=== PATIENT | male | born 1970 | race Native Hawaiian/Other Pacific Islander ===

== ENCOUNTER 2016-08-16 15:57 | Emergency (ER) | payer SELFPAY ==
--- NOTE | 2016-08-16 16:40 | ER Document Report ---
ED Medical Screen (RME) - General Stated Complaint: RIGHT LEG NUMBNESS Notes: 46 yo male c/o right leg numbness x 1 day. started while walking to work. hx/ o DM, seizure disorder, HTN. denies chest pain and shortness. reports dizziness earlier today. no meds x 3 months. no recent trauma. pt does have hx/o gout. last attack 1 yr ago TRAVEL OUTSIDE OF THE [place] IN LAST 30 DAYS: No - Related Data Allergies/Adverse Reactions: phenytoin [From Dilantin] Allergy (Verified 03/20/16 16:09) tramadol Allergy (Verified 03/20/16 16:08) Past Medical History - Past Medical History Cardiac Medical History: Reports: Hx Congestive Heart Failure, Hx Hypertension Endocrine Medical History: Reports: Hx Diabetes Mellitus Type 2 Musculoskeltal Medical History: Reports Hx Arthritis, Reports Hx Gout Physical Exam - Vital signs Vitals: Temp Pulse Resp BP Pulse Ox 98.0 F 101 H 16 144/107 H 96 08/16/16 16:24 08/16/16 16:24 08/16/16 16:24 08/16/16 16:24 08/16/16 16:24 Course - Vital Signs Vital signs: Temp Pulse Resp BP Pulse Ox 98.0 F 101 H 16 144/107 H 96 08/16/16 16:24 08/16/16 16:24 08/16/16 16:24 08/16/16 16:24 08/16/16 16:24
[2016-08-16 17:23] LABS: ABSOLUTE EOSINOPHILS # (AUTO) 0.1 10^3/uL (0.0-0.6); ABSOLUTE LYMPHOCYTES (AUTO) 2.5 10^3/uL (0.5-4.7); ABSOLUTE MONOCYTES (AUTO) 0.4 10^3/uL (0.1-1.4); ABSOLUTE NEUT (AUTO) 5.9 10^3/uL (1.7-8.2); BASOPHILS % (AUTO) 0.3 % (0-2); EOSINOPHILS % (AUTO) 1.5 % (0-6); HEMATOCRIT 46.2 % (37.9-51.0); HEMOGLOBIN 16.1 g/dL (13.5-17.0); HGB HCT DIFFERENCE 2.1; LYMPHOCYTES % (AUTO) 27.9 % (13-45); MEAN CORPUSCULAR HEMOGLOBIN 27.9 pg (27.0-33.4); MEAN CORPUSCULAR HGB CONC 34.9 g/dL (32.0-36.0); MEAN CORPUSCULAR VOLUME 80 fl (80-97); MONOCYTES % (AUTO) 4.9 % (3-13); RED BLOOD COUNT 5.78 10^6/uL (4.35-5.55); RED CELL DISTRIBUTION WIDTH 13.4 % (11.5-14.0); SEGMENTED NEUTROPHILS % (AUTO) 65.4 % (42-78); WHITE BLOOD COUNT 9.1 10^3/uL (4.0-10.5)
[2016-08-16 17:39] LABS: ALANINE AMINOTRANSFERASE 26 U/L (21-72); ALBUMIN 4.2 g/dL (3.5-5.0); ALKALINE PHOSPHATASE 122 U/L (38-126); ANION GAP 15 (5-19); ASPARTATE AMINO TRANSFERASE 20 U/L (17-59); BLOOD UREA NITROGEN 17 mg/dL (7-20); CALCIUM 9.6 mg/dL (8.4-10.2); CARBON DIOXIDE 22 mmol/L (22-30); CHLORIDE 108 mmol/L (98-107); CREATININE RESULT 0.82 mg/dL (0.52-1.25); GLUCOSE 185 mg/dL (75-110); POTASSIUM 3.8 mmol/L (3.6-5.0); SODIUM 144.9 mmol/L (137-145); TOTAL PROTEIN 7.9 g/dL (6.3-8.2); URIC ACID 7.2 mg/dL (3.5-8.5)
--- NOTE | 2016-08-16 18:48 | ER Document Report ---
ED General - General Chief Complaint: Leg Pain Stated Complaint: RIGHT LEG NUMBNESS Mode of Arrival: Wheelchair Information source: Patient Notes: Patient is a 46 yo male who presents with right leg pain, described as "soreness " that started yesterday. He states it worsened today whlie walking to work and reports feeling his right foot go numb and then his ankle went numb. He had to limp and drag his right leg while trying to get to a store so he could call EMS. He states now his right leg just feels "heavy." He did take advil yesterday for the pain but that did not provide relief. He has never felt this pain before, PMHx significant for DM, seizure d/o, CHF, HTN and gout but he has been out of his medication for the past 3 months. Denies any chest pain, SOB, headache, changes in vision. TRAVEL OUTSIDE OF THE [place] IN LAST 30 DAYS: No - Related Data Allergies/Adverse Reactions: lamotrigine [From Lamictal] Allergy (Verified 08/16/16 16:40) levetiracetam [From Keppra] Allergy (Verified 08/16/16 16:40) phenytoin [From Dilantin] Allergy (Verified 08/16/16 16:39) tramadol Allergy (Verified 08/16/16 16:39) Past Medical History - Social History Smoking Status: Current Every Day Smoker Chew tobacco use (# tins/day): No Frequency of alcohol use: None Drug Abuse: None Family History: Reviewed & Not Pertinent Patient has suicidal ideation: No Patient has homicidal ideation: No - Past Medical History Cardiac Medical History: Reports: Hx Congestive Heart Failure, Hx Hypertension Neurological Medical History: Reports: Hx Seizures Endocrine Medical History: Reports: Hx Diabetes Mellitus Type 2 Renal/ Medical History: Denies: Hx Peritoneal Dialysis Musculoskeltal Medical History: Reports Hx Arthritis, Reports Hx Gout Surgical Hx: Negative Review of Systems - Review of Systems Constitutional: No symptoms reported EENT: No symptoms reported Cardiovascular: No symptoms reported Respiratory: No symptoms reported Gastrointestinal: No symptoms reported Genitourinary: No symptoms reported Male Genitourinary: No symptoms reported Musculoskeletal: See HPI Skin: No symptoms reported Hematologic/Lymphatic: No symptoms reported Neurological/Psychological: See HPI Physical Exam - Vital signs Vitals: Temp Pulse Resp BP Pulse Ox 98.0 F 101 H 16 144/107 H 96 02/01/17 16:24 08/16/16 16:24 08/16/16 16:24 08/16/16 16:24 08/16/16 16:24 Interpretation: Hypertensive, Tachycardic - Notes Notes: PHYSICAL EXAM: CONSTITUTIONAL: Alert and oriented, well-appearing and in no acute distress. HENT: Normocephalic, atraumatic. Moist mucous membranes. EYES: Pupils equal round and reactive to light, EOM intact. Sclera anicteric, conjunctiva are normal. No entrapment. NECK: supple without lymphadenopathy. No midline tenderness or paraspinous muscle spasms. No step-offs or deformities. ROM intact. HEART: Regular rate and rhythm without murmurs. LUNGS: CTAB and equal. No wheezes, rales or rhonchi. GI: Normactive bowel sounds. Nontender, non-distended. No organomegaly. no CVAT. BACK: tender to palpation over bilateral lower lumbar musculature with mild paraspinous spasm, 4+/5 strengths, DTRs 2+, SLR + on Right side. EXTREMITIES: TTP along upper and lower extremity without deformity, erythema, ecchymosis or edema. ROM of R leg limited secondary to pain. no pitting edema. No cyanosis. Cap Refill <3 seconds. NEURO: Cranial nerves grossly intact. Normal sensory/motor exams. Sensation intact to light touch on b/l lower extremities. PSYCH: Normal mood, normal affect. SKIN: Warm and dry. Normal turgor. No rashes or lesions noted. Course - Re-evaluation Re-evalutation: 08/16/16 19:04 I have consulted with the supervisory physician [facility] guidelines. 08/16/16 21:19 Patient seen and examined. No neuro deficits, +SLR on R side. Sensation to light touch intact and strength 4/5 bilaterally. No evidence of cauda equine sydrome. Given IM toradol for pain. Reviewed imaging - mild DDD at L4-L5 with no other abnormalities. Discussed results with patient. Discharged home in stable condition, scripts given for steroids/pain medication. Follow-up with primary care doctor. - Vital Signs Vital signs: Temp Pulse Resp BP Pulse Ox 98.0 F 101 H 18 144/107 H 96 08/16/16 16:24 08/16/16 16:24 08/16/16 18:06 08/16/16 16:24 08/16/16 16:24 - Laboratory Result Diagrams: 08/16/16 17:01 08/16/16 17:01 Laboratory results interpreted by me: 08/16/16 08/16/16 17:01 17:01 RBC 5.78 H Chloride 108 H Glucose 185 H 08/16/16 18:48 - Diagnostic Test Radiology reviewed: Image reviewed, Reports reviewed Radiology results interpreted by me: 08/16/16 21:24 Lumbar spine plain films - mild degenerative disc disease in L4-L5 without additional abnormalities. Discharge - Discharge Clinical Impression: Right leg pain Sciatica Qualifiers: Laterality: right Qualified Code(s): M54.31 - Sciatica, right side Condition: Stable Disposition: HOME, SELF-CARE Additional Instructions: Return immediately for any new or worsening symptoms. Follow-up with primary care provider, call tomorrow to make followup appointment. Sciatica Your symptoms suggest "sciatica." The pain of sciatica typically radiates down the leg. Numbness in the foot or calf may also occur. Sciatica is caused by irritation of the sciatic nerve or its branches. The irritation can be due to a herniated disk in the spine, swelling and inflammation in the muscles surrounding the sciatic nerve, or direct injury of the nerve itself. Most cases of sciatica will resolve with medical treatment. Bed rest is usually recommended initially. Surgery is only necessary when the condition will not improve with rest and antiinflammatory medication. Muscle relaxers are often given if muscle soreness is present. A CAT scan of the back may be performed if a herniated disk is suspected. Re-examination is necessary if you develop increasing numbness, localized weakness in the foot or ankle, or if the pain does not respond to rest. Muscle Relaxers Muscle relaxing medications are usually prescribed for acute muscle spasm or injury to the neck and back. They are often combined with antiinflammatory pain medication for increased relief. You may stop the muscle relaxer when the pain and stiffness have improved. Start the medication again if spasms recur. Muscle relaxers may cause drowsiness, especially with the first dose. Do not operate machinery or drive while under the effects of the medication. Most muscle relaxers last up to 24 hours. Do not combine the medication with alcohol. STEROID MEDICATION: You have been given a medicine of the cortisone/steroid class. This medication is used to control inflammation or allergy. It is usually only given for a short period of time, until the acute process subsides. There are usually no side effects from short-term use of cortisone-like medications. Some persons feel an increased sense of well-being and are not sleepy at bedtime. Long-term use of cortisone medications is best avoided, unless required for a severe condition. If your condition does not remit, or relapses after the course of corticosteroid medication, you should consult your physician. Follow-Up Care Although no definite follow-up visit has been scheduled for you, you should return if there is unexpected worsening or a significant change in your symptoms. Prescriptions: Metformin HCl 500 mg PO Q12 #10 tablet Methylprednisolone [Medrol Dosepack (4 mg/Tab) 21 Tab/Dosepak] 4 mg PO ASDIR PRN #21 tab.ds.pk PRN Reason: Naproxen [Naprosyn 250 mg Tablet] 250 mg PO DAILY PRN #14 tablet PRN Reason: Forms: Elevated Blood Pressure, Return to Work Referrals: LOCALMD,NO [Primary Care Provider] - Follow up in 3-5 days
[2016-08-16] MEDS ORDERED: KETOROLAC TROMETHAMINE 60 MG/2 ML SDV IM ONE (19:03)
[2016-08-16 22:59] VITALS: BP 159/102
== END 2016-08-16 22:51 | disposition home or self-care (01) ==
LOC: ER 15:57
DX: M79.604 Pain in right leg (principal); M54.31 Sciatica, right side; F17.210 Nicotine dependence, cigarettes, uncomplicated
CPT/HCPCS: 99284; 96372; 36415; 84550; 85025; 80053; 72110; J1885

== ENCOUNTER 2016-09-16 21:00 | Observation (INO) | payer SELFPAY ==
--- NOTE | 2016-09-16 21:03 | ER Document Report ---
ED Neuro Symptoms/Deficit - General Stated Complaint: STROKE LIKE SYMPTOMS Time seen by provider: 21:03 Mode of Arrival: Stretcher TRAVEL OUTSIDE OF THE [place] IN LAST 30 DAYS: No - HPI Patient complains to provider of: Facial Droop, Speech Impairment, Weakness - right side Onset: Just prior to arrival Awoke with symptoms: No Symptoms are: Intermittent episodes Duration: Better Severity: Moderate Baseline Cognitive: Alert, oriented X 3 Baseline Gait: Walks w/o assistance New weakness: RUE, RLE, R facial Impaired speech/swallowing: Difficult Similar symptoms previously: Yes Recently seen / treated by doctor: No Notes: Patient is a 46-year-old male with a history of hypertension, states he has not seen a doctor or taken his hypertensive medication in at least 6 months, who presents to the emergency room via EMS for complaints of right-sided weakness, right facial droop, speech impairment, symptoms started approximately 20 minutes prior to calling EMS, although patient reports she's had 3-4 episodes similar to this in past weeks, his systolic blood pressure is greater than 180 via EMS, upon arrival he does have slight aphasia, slight right-sided facial droop and slight right upper and lower extremity weakness, he was taken immediately to the CT scanner - Related Data Allergies/Adverse Reactions: lamotrigine [From Lamictal] Allergy (Verified 08/16/16 16:40) levetiracetam [From Keppra] Allergy (Verified 08/16/16 16:40) phenytoin [From Dilantin] Allergy (Verified 08/16/16 16:39) tramadol Allergy (Verified 08/16/16 16:39) Past Medical History - General Information source: Patient - Social History Smoking Status: Current Every Day Smoker Family History: Reviewed & Not Pertinent - Past Medical History Cardiac Medical History: Reports: Hx Congestive Heart Failure, Hx Hypertension Neurological Medical History: Reports: Hx Seizures Endocrine Medical History: Reports: Hx Diabetes Mellitus Type 2 Renal/ Medical History: Denies: Hx Peritoneal Dialysis Musculoskeltal Medical History: Reports Hx Arthritis, Reports Hx Gout Review of Systems - Review of Systems Constitutional: No symptoms reported EENT: No symptoms reported Cardiovascular: No symptoms reported Respiratory: No symptoms reported Gastrointestinal: No symptoms reported Genitourinary: No symptoms reported Male Genitourinary: No symptoms reported Musculoskeletal: No symptoms reported Skin: No symptoms reported Hematologic/Lymphatic: No symptoms reported Neurological/Psychological: See HPI -: Yes All other systems reviewed and negative Physical Exam - Vital signs Vitals: Resp Pulse Ox 18 99 09/16/16 21:19 09/16/16 21:19 Interpretation: Normal - General General appearance: Appears well, Alert - HEENT Head: Normocephalic, Atraumatic Eyes: Normal Pupils: PERRL - Respiratory Respiratory status: No respiratory distress Chest status: Nontender Breath sounds: Normal Chest palpation: Normal - Cardiovascular Rhythm: Regular Heart sounds: Normal auscultation Murmur: No - Abdominal Inspection: Normal Distension: No distension Bowel sounds: Normal Tenderness: Nontender Organomegaly: No organomegaly - Back Back: Normal, Nontender - Extremities General upper extremity: Normal inspection, Nontender, Normal color, Normal ROM , Normal temperature General lower extremity: Normal inspection, Nontender, Normal color, Normal ROM , Normal temperature, Normal weight bearing. No: Mau's sign - Neurological Cognition: Normal Orientation: AAOx4 Jan Coma Scale Eye Opening: Spontaneous Jan Coma Scale Verbal: Oriented Jan Coma Scale Motor: Obeys Commands Jan Coma Scale Total: 15 Speech: Expressive aphasia Cranial nerves: Other - right facial droop Motor strength normal: LUE, LLE Additional motor exam normals: Other - right sided weakness Sensory: Normal - Psychological Associated symptoms: Normal affect, Normal mood - Skin Skin Temperature: Warm Skin Moisture: Dry Skin Color: Normal Course - Re-evaluation Re-evalutation: 09/17/16 02:09 Patient with slight right-sided weakness and facial droop with mild expressive aphasia on arrival, which improved significantly during his course of stay, patient was discussed with the hospitalist, initially patient was reluctant to stay, however I had another discussion with him and it seemed as though his symptoms were starting to occur once again, therefore he was willing to stay for further evaluation and treatment - Vital Signs Vital signs: Temp Pulse Resp BP Pulse Ox 98.2 F 84 22 H 155/98 H 98 09/17/16 00:31 09/17/16 00:37 09/17/16 01:01 09/17/16 01:01 09/17/16 01:01 - Laboratory Result Diagrams: 09/16/16 21:35 09/16/16 21:35 Laboratory results interpreted by me: 03/04/17 03/04/17 03/04/17 21:35 21:35 21:35 RBC 5.71 H MCH 26.9 L BUN 21 H Glucose 149 H Hemoglobin A1c % 8.8 H Creatine Kinase 183 H Urine Protein Urine Glucose (UA) 09/16/16 21:42 RBC MCH BUN Glucose Hemoglobin A1c % Creatine Kinase Urine Protein 30 H Urine Glucose (UA) >=500 H - Diagnostic Test Radiology reviewed: Image reviewed, Reports reviewed - EKG Interpretation by Me EKG shows normal: Sinus rhythm Rate: Normal Rhythm: NSR - Transfer of Care Care transferred to following provider: Dr. Odom Critical Care Note - Critical Care Note Total time excluding time spent on procedures (mins): 30 Comments: Patient hypertensive on arrival with signs and symptoms consistent with CVA/TIA , requiring admission for further evaluation and treatment Discharge - Discharge Clinical Impression: Transient ischemic attack (TIA) Qualifiers: Transient cerebral ischemia type: unspecified Qualified Code(s): G45.9 - Transient cerebral ischemic attack, unspecified Hypertension Qualifiers: Hypertension type: essential hypertension Qualified Code(s): I10 - Essential ( primary) hypertension Condition: Stable Disposition: ADMITTED OBSERVATION Admitting Provider: Hospitalist Unit Admitted: Telemetry ED [employer]/Exc Criteria - Date/Time patient last known well: Date/Time: 09/16/20162029 - Date/Time patient arrived in ED: _: 09/16/20162099 - Inclusion Criteria: 1: Patient presented to ED within 3 hours of acute ischemic stroke symptom onset ? -: Yes 2: Did baseline CT exclude intracranial hemorrhage and/or other risk factors? -: Yes 3: Is the age of the patient 18 years of age or greater? -: Yes : If any of the above questions are answered "NO" then stop, patient is not a candidate for Alteplase, : If all of the above questions are answered "YES" then continue with Exclusion Criteria. - Exclusion Criteria: 1: Is there evidence of intracranial hemorrhage on baseline CT? -: No 2: Is there suspicion of subarachnoid hemorrhage (even if CT negative)? -: No 3: Is there a history of serious head trauma, recent previous stroke or RI within 3 months? -: No 4: Does the patient have a clinical presentation consistent with RI or post-RI pericarditis? -: No 5: Is there history of intracranial hemorrhage? -: No 6: On repeated measurement is Systolic BP greater than 185mmHg or Diastolic BP greater that 110 mmHg and is aggressive treatment needed to reduce blood pressure to these limits (e.g. constant infusion of an anti-hypertensive)? -: No 7: Did the patient awake with stroke symptoms? -: No 8: Has the patient had a lumbar puncture or an arterial puncture at a non- compressile site within 7 days? -: No 9: With in the last 14 days did the patient have surgery or major trauma? -: No 10: Is the patient or less than 2 weeks? -: No 11: Was there any active bleeding or acute trauma? -: No 12: Does the patient have intracranial neoplasm, arteriovenous malformation or aneurysm? -: No 13: Does the patient have abnormal glucose (less than 50 or greater than 400mg/ dl)? Record glucose in Comment. -: No 14: Patient has rapidly improving symptoms at the time Alteplase is to be Administered. -: Yes 15: Does the patient have any risks for bleeding, including but not limited to: a.: Current use of Coumadin with PT greater than 15 seconds or INR greater than 1.7. b.: Current use of Pradaxa (Dabigatran). c.: Heparin administereed within the past 48 hours and PTT elevated. d.: Platelet count less than 100,000/mm. e.: Major surgery or serious trauma within 14 days. f.: Gastrointestinal or gynecological urinary bleeding within 14 days. g.: Myocardial Infarction (RI) within 3 months. -: No : If the answer to any of the above questions is "YES" then stop, the patient is not a candidate for Alteplase. : If the answer to all of the above questions is "NO" then the patient may be eligible for the Administration of Alteplase. : If the patient is noted to have seizure activity at onset of Stroke symptoms; Consult Neurologist for further evaluation. - The patient is: -: Included and is eligible to receive Alteplase. *Initiate bed placement at higher level of care* --: No Reviewd risks & benefits of thrombolytic therapy: I have reviewed the risks and benefits of thrombolytic therapy with the patient and/or his/her family. -: Excluded and not eligible to receive Alteplase for the above exclusions. -: Excluded and not eligible to receive Alteplase for other reasons (specify in comments): --: Yes - Diagnosis of TIA: -: Patient presented with transient symptoms that are now resolved and no other neurologic findings are currently present. List symptoms in comments. -: Yes -: Patient is NOT a candidate for tPA. -: Yes -: ____(put name in comment) has been consulted for admission and continued evaluation of risk factor assessment.
[2016-09-16 21:51] LABS: ABSOLUTE EOSINOPHILS # (AUTO) 0.2 10^3/uL (0.0-0.6); ABSOLUTE LYMPHOCYTES (AUTO) 3.4 10^3/uL (0.5-4.7); ABSOLUTE MONOCYTES (AUTO) 0.7 10^3/uL (0.1-1.4); BASOPHILS % (AUTO) 0.4 % (0-2); HEMATOCRIT 45.5 % (37.9-51.0); HEMOGLOBIN 15.4 g/dL (13.5-17.0); HGB HCT DIFFERENCE 0.7; MEAN CORPUSCULAR HEMOGLOBIN 26.9 pg (27.0-33.4); MEAN CORPUSCULAR HGB CONC 33.8 g/dL (32.0-36.0); MEAN CORPUSCULAR VOLUME 80 fl (80-97); MONOCYTES % (AUTO) 6.3 % (3-13); PARTIAL THROMBOPLASTIN TIME 27.5 SEC (23.5-35.8); RED BLOOD COUNT 5.71 10^6/uL (4.35-5.55); RED CELL DISTRIBUTION WIDTH 13.6 % (11.5-14.0); SEGMENTED NEUTROPHILS % (AUTO) 58.3 % (42-78); WHITE BLOOD COUNT 10.3 10^3/uL (4.0-10.5)
[2016-09-16 21:53] LABS: PROTHROMBIN TIME 12.4 SEC (11.4-15.4)
[2016-09-16] MEDS ORDERED: CLONIDINE HCL 0.2 MG TABLET PO ONE (22:06)
[2016-09-16 22:12] LABS: ALANINE AMINOTRANSFERASE 38 U/L (21-72); ALBUMIN 4.5 g/dL (3.5-5.0); ALKALINE PHOSPHATASE 121 U/L (38-126); ANION GAP 13 (5-19); ASPARTATE AMINO TRANSFERASE 28 U/L (17-59); BILIRUBIN,TOTAL 0.9 mg/dL (0.2-1.3); BLOOD UREA NITROGEN 21 mg/dL (7-20); CALCIUM 9.5 mg/dL (8.4-10.2); CARBON DIOXIDE 25 mmol/L (22-30); CHLORIDE 106 mmol/L (98-107); CREATINE KINASE 183 U/L (55-170); CREATININE RESULT 0.81 mg/dL (0.52-1.25); GLUCOSE 149 mg/dL (75-110); POTASSIUM 3.6 mmol/L (3.6-5.0); SODIUM 144.3 mmol/L (137-145); TOTAL PROTEIN 7.7 g/dL (6.3-8.2)
[2016-09-16 22:23] LABS: CREATINE KINASE MB 2.38 ng/mL (<4.55)
[2016-09-16 22:25] LABS: TROPONIN I 0.037 ng/mL
[2016-09-16] MEDS ORDERED: ATORVASTATIN CALCIUM 80 MG TABLET PO SCH (23:30)
[2016-09-16 23:38] LABS: APPEARANCE,URINE CLEAR; BILIRUBIN,URINE NEGATIVE (NEGATIVE); GLUCOSE, URINE >=500 mg/dL (NEGATIVE); KETONES,URINE NEGATIVE (NEGATIVE); LEUKOCYTE ESTERASE,URINE NEGATIVE (NEGATIVE); NITRITE,URINE NEGATIVE (NEGATIVE); PROTEIN,URINE 30 mg/dL (NEGATIVE); URINE SPECIFIC GRAVITY 1.025; UROBILINOGEN,URINE NEGATIVE mg/dL (<2.0)
[2016-09-16 23:52] LABS: URINE BARBITURATES SCREEN NEGATIVE; URINE METHADONE SCREEN NEGATIVE; URINE OPIATES LOW NEGATIVE; URINE PHENCYCLIDINE SCREEN NEGATIVE
[2016-09-17] MEDS ORDERED: GLUCAGON,HUMAN RECOMB 1 MG INJ IM PRN (00:54)
[2016-09-17] MEDS ORDERED: DEXTROSE 50%-WATER 25 GM/50 ML DISP.SYRIN IV PRN ×2 (00:54)
[2016-09-17] MEDS ORDERED: DEXTROSE 40% GEL 15 GM TUBE PO PRN ×2 (00:54)
[2016-09-17] MEDS ORDERED: INFLUENZA ADLT QUAD (36MOS+) 2016-17 VAC 0.5 ML SYR IM PRN (03:19)
--- NOTE | 2016-09-17 04:45 | PDOC H&P ---
History of Present Illness Admission Date/PCP: 09/16/16 23:18 Patient complains of: Word finding difficulties and right facial droop History of Present Illness: WHITNEY HENRY is a 46 year old male with a past medical history of substance abuse, Tobacco Dependence, seizure, hypertension and diabetes off medications for several months who had been in his usual state of health until approximately a month ago. Noting a short-lived episode of word finding difficulty and slurred speech and right facial droop which has recurred approximately 3 times and lasted approximately an hour prior to returning to baseline. He denies chest pain palpitations nausea vomiting, blurred vision, dizziness, ringing in the ears or focal weakness. In the emergency room he has a workup notable for uncontrolled hypertension systolic blood pressure in the 170s and hyperglycemia. He started on aspirin and referred to the hospitalist for admission. He denies any new medications his last seizure was greater than a year ago. Past Medical History Cardiac Medical History: Reports: Congestive Heart Failure, Hypertension Neurological Medical History: Reports: Seizures Endocrine Medical History: Reports: Diabetes Mellitus Type 2 Musculoskeltal Medical History: Reports: Arthritis, Gout Psychiatric Medical History: Reports: Depression, Substance Abuse, Tobacco Dependency Social History Smoking Status: Current Every Day Smoker Cigarettes Packs Per Day: 0.5 Number of Years Smokin Last Time Smoked: T-1 Frequency of Alcohol Use: Rare Hx Recreational Drug Use: Yes Drugs: Other Family History Family History: CAD, CVA, DM Parental Family History Reviewed: Yes Children Family History Reviewed: Yes Sibling(s) Family History Reviewed.: Yes Medication/Allergy Home Medications: Carvedilol [Coreg 25 mg Tablet] 1 tab PO Q12 #60 tab 09/19/15 Lisinopril 20 mg PO BID #60 tablet 09/19/15 Metformin HCl 500 mg PO BID #60 tablet 09/19/15 Allopurinol [Zyloprim 100 mg Tablet] 500 mg PO DAILY 09/17/16 Diazepam [Valium] 10 mg PO QHS PRN 09/17/16 Ibuprofen [Motrin 800 mg Tablet] 1 tab PO PRN PRN 09/17/16 Methocarbamol [Robaxin 500 mg Tablet] 500 mg PO QHS 09/17/16 Nitroglycerin 0.4 mg SL PRN PRN 09/17/16 Allergies/Adverse Reactions: lamotrigine [From Lamictal] Allergy (Verified 08/16/16 16:40) levetiracetam [From Keppra] Allergy (Verified 08/16/16 16:40) phenytoin [From Dilantin] Allergy (Verified 08/16/16 16:39) tramadol Allergy (Verified 08/16/16 16:39) Review of Systems Constitutional: ABSENT: chills, fever(s), headache(s), weight gain, weight loss Eyes: ABSENT: visual disturbances Ears: ABSENT: hearing changes Cardiovascular: ABSENT: chest pain, dyspnea on exertion, edema, orthropnea, palpitations Respiratory: ABSENT: cough, hemoptysis Gastrointestinal: ABSENT: abdominal pain, constipation, diarrhea, hematemesis, hematochezia, nausea, vomiting Genitourinary: ABSENT: dysuria, hematuria Musculoskeletal: ABSENT: joint swelling Integumentary: ABSENT: rash, wounds Neurological: PRESENT: abnormal speech, tingling. ABSENT: abnormal gait, confusion, dizziness, focal weakness, frequent falls, memory loss, numbness, syncope, vertigo, weakness Psychiatric: PRESENT: anxiety. ABSENT: depression, homidical ideation, suicidal ideation Endocrine: PRESENT: polydipsia, polyuria. ABSENT: cold intolerance, heat intolerance Hematologic/Lymphatic: ABSENT: easy bleeding, easy bruising Physical Exam Vital Signs: Temp Pulse Resp BP Pulse Ox 98.0 F 65 18 150/91 H 98 09/17/16 01:57 09/17/16 01:57 09/17/16 01:57 09/17/16 01:57 09/17/16 01:57 Intake & Output 09/15/16 09/16/16 09/17/16 11:59 11:59 11:59 Weight 93 kg General appearance: PRESENT: no acute distress, cooperative Head exam: PRESENT: atraumatic, normocephalic Eye exam: PRESENT: conjunctiva pink, EOMI, PERRLA. ABSENT: scleral icterus Ear exam: PRESENT: normal external ear exam Mouth exam: PRESENT: moist, tongue midline Neck exam: ABSENT: carotid bruit, JVD, lymphadenopathy, thyromegaly Respiratory exam: PRESENT: clear to auscultation peewee. ABSENT: rales, rhonchi, wheezes Cardiovascular exam: PRESENT: RRR. ABSENT: diastolic murmur, rubs, systolic murmur Pulses: PRESENT: normal dorsalis pedis pul GI/Abdominal exam: PRESENT: normal bowel sounds, soft. ABSENT: distended, guarding, mass, organolmegaly, rebound, tenderness Rectal exam: PRESENT: deferred Extremities exam: PRESENT: full ROM. ABSENT: calf tenderness, clubbing, pedal edema Neurological exam: PRESENT: alert, awake, oriented to person, oriented to place , oriented to time, oriented to situation, CN II-XII grossly intact. ABSENT: motor sensory deficit, aphasic Psychiatric exam: PRESENT: anxious Skin exam: PRESENT: dry, intact, warm. ABSENT: cyanosis, rash Results Impressions: Head CT 09/16/16 21:02 IMPRESSION: No acute findings Chest X-Ray 09/16/16 21:05 IMPRESSION: NO ACUTE RADIOGRAPHIC FINDING IN THE CHEST. Assessment & Plan - Diagnosis (1) Transient ischemic attack (TIA) Qualifiers: Transient cerebral ischemia type: unspecified Qualified Code(s): G45.9 - Transient cerebral ischemic attack, unspecified Is this a current diagnosis for this admission?: YesPlan: Vague neurologic complaint complicated by history of substance abuse, Depression and noncompliance. That said he has strong family history uncontrolled hypertension and diabetes I'll observe him on a monitored bed with a CVA care set initiate full dose aspirin, statin permissive hypertension and obtaining MRI, carotid Doppler, lipid profile and TSH (2) Diabetes 1.5, managed as type 2 Is this a current diagnosis for this admission?: YesPlan: Metformin, insulin sliding scale and education (3) Hypertension Qualifiers: Hypertension type: essential hypertension Qualified Code(s): I10 - Essential (primary) hypertension Is this a current diagnosis for this admission?: YesPlan: Permissive hypertension initially for possibility of TIA otherwise resume MARGARITO inhibitor - Time Time Spent: 30 to 50 Minutes - Inpatient Certification Medical Necessity: Need Close Monitoring Due to Risk of Patient Decompensation
[2016-09-17] MEDS: HEPARIN SOD (PORCINE) 5,000 UNIT/ML 1 ML SYRINGE SUBCUT SCH ×2 (05:40→14:04)
[2016-09-17 06:36] LABS: CHOLESTEROL 159.67 mg/dL (0-200); Direct HDL 30 mg/dL (>40); TRIGLYCERIDES 186 mg/dL (<150)
[2016-09-17 06:47] LABS: DIRECT LDL 107 mg/dL (<100)
[2016-09-17 06:51] LABS: VLDL CHOLESTEROL 37.2 mg/dL (10-31)
[2016-09-17] MEDS: INSULIN LISPRO 100 UNIT/ML 3 ML VIAL SUBCUT PRN ×2 (07:46→16:13)
--- NOTE | 2016-09-17 09:45 | EKG REPORT ---
SEVERITY:- BORDERLINE ECG - SINUS RHYTHM PROBABLE LEFT ATRIAL ABNORMALITY : Confirmed by: Felipe Weir MD 17-Sep-2016 09:44:28
[2016-09-17] MEDS ORDERED: ASPIRIN 325 MG TABLET PO SCH (10:00)
[2016-09-17] MEDS ORDERED: CARVEDILOL 12.5 MG TABLET PO SCH ×2 (10:00→22:00)
[2016-09-17] MEDS: DOCUSATE SODIUM 100 MG CAPSULE PO SCH ×2 (10:31→17:33)
[2016-09-17] MEDS: METFORMIN HCL 500 MG TABLET PO SCH ×2 (10:31→17:38)
[2016-09-17 16:18] VITALS: BP 150/91
--- NOTE | 2016-09-17 16:21 | PDOC DISCHARGE SUMMARY ---
General - Admit/Disc Date/PCP Admission Date/Primary Care Provider: 09/16/16 23:18 Discharge Date: 09/17/16 - Discharge Diagnosis (1) Transient ischemic attack (TIA) Is this a current diagnosis for this admission?: YesSummary: Negative MRI. It's not clear whether this was truly a TIA or related to his uncontrolled hypertension. All of his symptoms have resolved. (2) Diabetes 1.5, managed as type 2 Is this a current diagnosis for this admission?: Yes (3) Hypertension Is this a current diagnosis for this admission?: YesSummary: He has not taken medications for the last 6 months. He is given a prescription for 30 days for all of his medications. (4) Anxiety Is this a current diagnosis for this admission?: YesSummary: Patient is given a prescription for diazepam to use as needed - Additional Information Discharge Diet: Diabetic Discharge Activity: Activity As Tolerated Home Medications: Allopurinol [Zyloprim 100 mg Tablet] 300 mg PO DAILY #30 tablet 09/17/16 Aspirin [Aspirin 325 mg Tablet] 325 mg PO DAILY tablet 09/17/16 Atorvastatin Calcium [Lipitor 80 mg Tablet] 80 mg PO QHS #30 tablet 09/17/16 Carvedilol [Coreg 25 mg Tablet] 1 tab PO Q12 #60 tablet 09/17/16 Diazepam [Valium] 10 mg PO HSP PRN #20 tablet 09/17/16 Ibuprofen [Motrin 800 mg Tablet] 800 mg PO HSP PRN #60 tablet 09/17/16 Lisinopril [Prinivil] 20 mg PO BID #60 tablet 09/17/16 Metformin HCl [Glucophage] 500 mg PO BID #60 tablet 09/17/16 Methocarbamol [Robaxin 500 mg Tablet] 500 mg PO HSP PRN #30 tablet 09/17/16 Nitroglycerin [Nitrostat 0.4 mg (1/150 Gr) Tabs 25/Bottle] 1 tab SL Q5MP PRN #1 bottle 09/17/16 History of Present Illness History of Present Illness: WHITNEY HENRY is a 46 year old male with history diabetes and hypertension as well as seizure disorders not taking his medications for the last several months because of financial concerns. The patient has had several episodes of expressive aphasia along with slurred speech and right facial droop. The patient reports that last an hour that has returned to normal. Patient when he presented to emergency room had uncontrolled systolic hypertension with blood pressures in the 170s. The patient had not had any seizure activity. Hospital Course Hospital Course: 46-year-old male with diabetes, hypertension, seizure disorder who has not taken his medications the last several months because of financial reasons who presented with some expressive aphasia along with facial droop. The patient had a head CT which was unremarkable and then underwent a brain MRI which also was normal. Patient was noted to have elevated systolic blood pressures and his blood pressure was lowered in the normal range and will his symptoms. She is not clear whether he truly had a TIA or this was related to his elevated blood pressures. The patient was unable to get his carotid Dopplers on Sunday and he is discharged home and will follow-up as an outpatient to get these if he continues to have symptoms. Patient was monitored on telemetry and no cardiac arrhythmias and felt that no further workup for mural thrombus was indicated given normal cardiac rhythm. Patient was aspirin oswaldo and was instructed to take 325 mg aspirin daily from now on. Also sent home on a statin. Physical Exam Vital Signs: Temp Pulse Resp BP Pulse Ox 97.5 F 59 L 20 137/90 H 97 09/17/16 15:14 09/17/16 15:14 09/17/16 15:14 09/17/16 15:14 09/17/16 15:14 Intake & Output 09/16/16 09/17/16 09/18/16 06:59 06:59 06:59 Intake Total 555 300 Output Total 500 Balance 55 300 Weight 93.7 kg General appearance: PRESENT: no acute distress Head exam: PRESENT: atraumatic, normocephalic Eye exam: PRESENT: conjunctiva pink. ABSENT: scleral icterus Ear exam: PRESENT: normal external ear exam Mouth exam: PRESENT: moist, tongue midline Neck exam: ABSENT: JVD Respiratory exam: PRESENT: clear to auscultation peewee. ABSENT: rales, rhonchi, wheezes Cardiovascular exam: PRESENT: RRR. ABSENT: diastolic murmur, rubs, systolic murmur GI/Abdominal exam: PRESENT: normal bowel sounds, soft. ABSENT: distended, guarding, mass, organolmegaly, rebound, tenderness Extremities exam: PRESENT: full ROM. ABSENT: calf tenderness, clubbing, pedal edema Neurological exam: PRESENT: alert, awake, oriented to person, oriented to place , oriented to time, oriented to situation, CN II-XII grossly intact. ABSENT: motor sensory deficit Psychiatric exam: PRESENT: appropriate affect Skin exam: PRESENT: dry, intact, warm. ABSENT: cyanosis, rash Results Laboratory Results: 09/17/16 06:06 Triglycerides 186 H Cholesterol 159.67 LDL Cholesterol Direct 107 H VLDL Cholesterol 37.2 H HDL Cholesterol 30 L Impressions: Head CT 09/16/16 21:02 IMPRESSION: No acute findings Chest X-Ray 09/16/16 21:05 IMPRESSION: NO ACUTE RADIOGRAPHIC FINDING IN THE CHEST. Head MRI 09/17/16 00:00 IMPRESSION: ESSENTIALLY NORMAL MRI OF THE BRAIN WITHOUT INTRAVENOUS GADOLINIUM CONTRAST. Qualifiers PATEINT BEING DISCHARGED WITH ANY OF THE FOLLOWING DIAGNOSIS?: Stroke Stroke Pt being discharged on Anti-thrombolytic therapy?: Yes Stroke Pt being discharged on Anti-coagulation therapy?: No Reason(s) for not prescribing Anti-coagulation therapy:: Not indicated Stroke Pt being discharged on Statins?: Yes Plan Discharge Plan: Discharged home. [facility]. Time Spent: Less than 30 Minutes
== END 2016-09-17 18:00 | disposition home or self-care (01) ==
LOC: ER 21:00 → EH 23:17 → UNDOADMOB 23:17 → EH 23:18 → 3N 09-17 01:49
PROVIDERS: ADMIT Internal Medicine; ATTEND Internal Medicine
PROC: 3E0234Z Introduction of Serum, Toxoid and Vaccine into Muscle, Percutaneous Approach (ICD-10-PCS; principal; 2016-09-16)
DX: G45.9 Transient cerebral ischemic attack, unspecified (principal); I50.9 Heart failure, unspecified; I12.9 Hypertensive chronic kidney disease with stage 1 through stage 4 chronic kidney disease, or unspecified chronic kidney disease; E11.9 Type 2 diabetes mellitus without complications; F41.9 Anxiety disorder, unspecified; Z79.84 Long term (current) use of oral hypoglycemic drugs; F17.200 Nicotine dependence, unspecified, uncomplicated; Z23 Encounter for immunization
CPT/HCPCS: 93005; 99291; 36415 ×2; 82553; 82962; 82550; 84443; 85025; 85610; 85730; 80053; 81001; 84484; 80307; 83036; 80061; 70551; 71010; 70450; 90686; 93010; 90471; J1644; J1815; J3490; G0378

== ENCOUNTER 2017-01-17 17:59 | Inpatient (IN) | payer SELFPAY ==
--- NOTE | 2017-01-17 18:24 | ER Document Report ---
ED Medical Screen (RME) - General Chief Complaint: S/S of Possible Stroke Stated Complaint: SLURRED SPEECH,FACIAL DROOP Time Seen by Provider: 01/17/17 18:18 Notes: This 46-year-old male patient comes emergency room with a 2 day history of right -sided weakness and slurred speech. He woke up with the symptoms. He has not been taking blood pressure medications for quite some time. He does continue to smoke. He was admitted here with TIAs and uncontrolled high blood pressure and noncompliance on September 16, 2016. He states he has had several "mini strokes " which I suppose referred to TIAs. He thought this would improve like the other so he did not seek treatment when he first noticed his symptoms. I have greeted and performed a rapid initial assessment of this patient. A comprehensive ED assessment and evaluation of the patient, analysis of test results and completion of the medical decision making process will be conducted by additional ED providers. TRAVEL OUTSIDE OF THE [place] IN LAST 30 DAYS: No - Related Data Allergies/Adverse Reactions: lamotrigine [From Lamictal] Allergy (Verified 08/16/16 16:40) levetiracetam [From Keppra] Allergy (Verified 08/16/16 16:40) phenytoin [From Dilantin] Allergy (Verified 08/16/16 16:39) tramadol Allergy (Verified 08/16/16 16:39) Past Medical History - Past Medical History Cardiac Medical History: Reports: Hx Congestive Heart Failure, Hx Hypertension Neurological Medical History: Reports: Hx Seizures Endocrine Medical History: Reports: Hx Diabetes Mellitus Type 2 Renal/ Medical History: Denies: Hx Peritoneal Dialysis Musculoskeltal Medical History: Reports Hx Arthritis, Reports Hx Gout Psychiatric Medical History: Reports: Hx Depression Physical Exam - Vital signs Vitals: Temp Pulse Resp BP Pulse Ox 97.6 F 101 H 17 171/120 H 97 01/17/17 18:05 01/17/17 18:05 01/17/17 18:05 01/17/17 18:05 01/17/17 18:05 Course - Vital Signs Vital signs: Temp Pulse Resp BP Pulse Ox 97.6 F 101 H 17 171/120 H 97 01/17/17 18:05 01/17/17 18:05 01/17/17 18:05 01/17/17 18:05 01/17/17 18:05
[2017-01-17 18:47] LABS: ABSOLUTE EOSINOPHILS # (AUTO) 0.1 10^3/uL (0.0-0.6); ABSOLUTE LYMPHOCYTES (AUTO) 2.4 10^3/uL (0.5-4.7); ABSOLUTE MONOCYTES (AUTO) 0.3 10^3/uL (0.1-1.4); ABSOLUTE NEUT (AUTO) 6.9 10^3/uL (1.7-8.2); BASOPHILS % (AUTO) 0.4 % (0-2); EOSINOPHILS % (AUTO) 1.4 % (0-6); HEMATOCRIT 46.6 % (37.9-51.0); HEMOGLOBIN 15.8 g/dL (13.5-17.0); HGB HCT DIFFERENCE 0.8; LYMPHOCYTES % (AUTO) 24.1 % (13-45); MEAN CORPUSCULAR HEMOGLOBIN 27.3 pg (27.0-33.4); MEAN CORPUSCULAR HGB CONC 33.8 g/dL (32.0-36.0); MEAN CORPUSCULAR VOLUME 81 fl (80-97); MONOCYTES % (AUTO) 3.6 % (3-13); RED BLOOD COUNT 5.78 10^6/uL (4.35-5.55); RED CELL DISTRIBUTION WIDTH 13.3 % (11.5-14.0); SEGMENTED NEUTROPHILS % (AUTO) 70.5 % (42-78); WHITE BLOOD COUNT 9.8 10^3/uL (4.0-10.5)
[2017-01-17 18:58] LABS: ALANINE AMINOTRANSFERASE 39 U/L (21-72); ALBUMIN 4.4 g/dL (3.5-5.0); ALKALINE PHOSPHATASE 126 U/L (38-126); ANION GAP 12 (5-19); ASPARTATE AMINO TRANSFERASE 28 U/L (17-59); BILIRUBIN,DIRECT 0.3 mg/dL (0.0-0.4); BILIRUBIN,TOTAL 0.8 mg/dL (0.2-1.3); BLOOD UREA NITROGEN 15 mg/dL (7-20); CARBON DIOXIDE 26 mmol/L (22-30); CHLORIDE 105 mmol/L (98-107); CREATINE KINASE 78 U/L (55-170); CREATININE RESULT 0.89 mg/dL (0.52-1.25); GLUCOSE 228 mg/dL (75-110); POTASSIUM 3.8 mmol/L (3.6-5.0); SODIUM 143.2 mmol/L (137-145); TOTAL PROTEIN 8.1 g/dL (6.3-8.2)
--- NOTE | 2017-01-17 19:00 | RADIOLOGY REPORT (SQ) ---
EXAM DESCRIPTION: CT HEAD WITHOUT COMPLETED DATE/TIME: 01/17/2017 6:42 pm REASON FOR STUDY: R sided weakness x 2 days COMPARISON: 09/16/2016 TECHNIQUE: Axial images acquired through the brain without intravenous contrast. Images reviewed wi th bone, brain and subdural windows. Images stored on PACS. All CT scanners at this facility use dose modulation, iterative reconstruction, and/or weight based d osing when appropriate to reduce radiation dose to as low as reasonably achievable (ALARA). [facility]: Dose Right [facility]: CareDose [facility]: Dose Right [facility]: Teradose 4D [facility]: [employer] RADIATION DOSE: 64.61 mGy. LIMITATIONS: None. FINDINGS: VENTRICLES: Normal size and contour. CEREBRUM: No masses. No hemorrhage. No midline shift. Normal granados/white matter differentiation. N o evidence for acute infarction. CEREBELLUM: No masses. No hemorrhage. No alteration of density. No evidence for acute infarction. EXTRAAXIAL SPACES: No fluid collections. No masses. ORBITS AND GLOBE: No intra- or extraconal masses. Normal contour of globe without masses. CALVARIUM: No fracture. PARANASAL SINUSES: Mucosal thickening is again identified in the left sphenoid sinus. SOFT TISSUES: No mass or hematoma. OTHER: No other significant finding. IMPRESSION: No significant interval change. No acute changes. Other findings as noted above TECHNICAL DOCUMENTATION: JOB ID: [id number] Quality ID # [id number]: Final reports with documentation of one or more dose reduction techniques (e.g., Au tomated exposure control, adjustment of the mA and/or kV according to patient size, use of iterative reconstruction technique) 2010 [employer]- All Rights Reserved
[2017-01-17 19:12] LABS: CREATINE KINASE MB 1.04 ng/mL (<4.55); TROPONIN I 0.028 ng/mL
--- NOTE | 2017-01-17 19:19 | ER Document Report ---
ED Neuro Symptoms/Deficit - General Mode of Arrival: Ambulatory Information source: Patient TRAVEL OUTSIDE OF THE [place] IN LAST 30 DAYS: No - HPI Patient complains to provider of: Difficulty standing, Weakness Onset: Other - 'few days ago' Symptoms are: Constant Context: Other - see notes above Baseline Cognitive: Alert, oriented X 3 Alert To: Name/Voice Patient Orientation: Person, Place, Time, Events Decreased ability to stand/walk: Off balance Associated symptoms: Other - see notes above <АНДРЕЙ ROSS - Last Filed: 01/17/17 20:44> <JIM QUINTERO - Last Filed: 01/18/17 04:25> - General Chief Complaint: S/S of Possible Stroke Stated Complaint: SLURRED SPEECH,FACIAL DROOP Time Seen by Provider: 01/17/17 19:10 Notes: 46-year-old male with history of TIA, unmedicated hypertension, unmedicated seizure disorder, and CHF presents to the ED complaining of "difficulty moving the right side" that started "a few days ago". Patient explains that he first noticed symptoms while standing up a few days ago. Patient reports that he was leaning to the right side and was having difficulty with balance. He then began to develop weakness to his right leg while at work yesterday which progressed to full sided right sided weakness this morning. Patient was having difficulty using his right hand to shave this morning. Patient denies having a seizure, but claims that his has noticed him shaking at night. Patient reports similar symptoms in the past and was diagnosed with a TIA. (АНДРЕЙ ROSS) - Related Data Allergies/Adverse Reactions: lamotrigine [From Lamictal] Allergy (Verified 08/16/16 16:40) levetiracetam [From Keppra] Allergy (Verified 08/16/16 16:40) phenytoin [From Dilantin] Allergy (Verified 08/16/16 16:39) tramadol Allergy (Verified 08/16/16 16:39) Home Medications: Current Home Medications No Home Medications 01/17/17 [History] Past Medical History - General Information source: Patient - Social History Smoking Status: Current Every Day Smoker Drug Abuse: Methamphetamine - Former Family History: CAD, CVA, DM Patient has suicidal ideation: No Patient has homicidal ideation: No - Past Medical History Cardiac Medical History: Reports: Hx Congestive Heart Failure, Hx Hypertension Neurological Medical History: Reports: Hx Seizures Endocrine Medical History: Reports: Hx Diabetes Mellitus Type 2 Renal/ Medical History: Denies: Hx Peritoneal Dialysis Musculoskeltal Medical History: Reports Hx Arthritis, Reports Hx Gout Psychiatric Medical History: Reports: Hx Depression <АНДРЕЙ ROSS - Last Filed: 01/17/17 20:44> Review of Systems - Review of Systems Constitutional: No symptoms reported EENT: No symptoms reported Cardiovascular: No symptoms reported Respiratory: No symptoms reported Gastrointestinal: No symptoms reported Genitourinary: No symptoms reported Male Genitourinary: No symptoms reported Musculoskeletal: No symptoms reported Skin: No symptoms reported Hematologic/Lymphatic: No symptoms reported Neurological/Psychological: See HPI, Weakness - right leg and arm, Gait changes - difficulty with balance -: Yes All other systems reviewed and negative <АНДРЕЙ ROSS - Last Filed: 01/17/17 20:44> Physical Exam - Vital signs Interpretation: Hypertensive - General General appearance: Alert In distress: None - HEENT Head: Normocephalic, Atraumatic Eyes: Normal Pupils: PERRL - Respiratory Respiratory status: No respiratory distress Chest status: Nontender Breath sounds: Normal Chest palpation: Normal - Cardiovascular Rhythm: Regular Heart sounds: Normal auscultation Murmur: No - Abdominal Inspection: Normal Distension: No distension Bowel sounds: Normal Tenderness: Nontender Organomegaly: No organomegaly - Back Back: Normal, Nontender - Extremities General upper extremity: Normal inspection, Nontender, Normal color, Normal ROM , Normal temperature General lower extremity: Nontender, Normal color, Normal temperature. No: Mau 's sign Shoulder: Normal Arm: Normal Elbow: Normal Forearm: Normal Wrist: Normal Hand: Normal - Neurological Neuro grossly intact: No Cognition: Normal Orientation: AAOx4 Jan Coma Scale Eye Opening: Spontaneous Jan Coma Scale Verbal: Oriented Jan Coma Scale Motor: Obeys Commands Jan Coma Scale Total: 15 Speech: Normal Motor strength normal: LUE, LLE. 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 Odom Time consulted: 20:15 <АНДРЕЙ ROSS - Last Filed: 01/17/17 20:44> - Laboratory Result Diagrams: 01/17/17 18:27 01/17/17 18:27 <JMI QUINTERO - Last Filed: 01/18/17 04:25> - Re-evaluation Re-evalutation: Patient is a 46-year-old male right-sided weakness. Patient has a history of hypertension, high cholesterol, and is noncompliant with his medications. Patient also apparently has a history of heart failure associated with methamphetamine abuse in the past. No acute findings on CT. Patient does have a lacunar infarct on MRI consistent with his symptoms. Patient's blood pressure has come down without treatment here in the emergency department. He will be referred to the hospitalist service for further evaluation and management of his acute CVA. Although, patient presented outside the time window for lytics. (JIM QUINTERO) - Vital Signs Vital signs: Temp Pulse Resp BP Pulse Ox 97.8 F 79 16 172/100 H 96 01/18/17 00:05 01/18/17 02:00 01/18/17 00:05 01/18/17 00:05 01/18/17 00:05 - Laboratory Laboratory results interpreted by me: 01/17/17 01/17/17 01/17/17 18:27 18:27 18:27 RBC 5.78 H ESR 22 H Glucose 228 H Hemoglobin A1c % NT-Pro-B Natriuret Pep 01/17/17 01/17/17 18:27 18:27 RBC ESR Glucose Hemoglobin A1c % 7.4 H NT-Pro-B Natriuret Pep 288 H - Consults Dr. Odom Reason for consultation: 01/17/17 20:15 Patient was discussed with Dr. Odom who agrees to admit the patient. (АНДРЕЙ ROSS) Discharge <АНДРЕЙ ROSS - Last Filed: 01/17/17 20:44> - [facility] Admitted: Telemetry <JIM QUINTERO - Last Filed: 01/18/17 04:25> - Discharge Clinical Impression: CVA (cerebral vascular accident) Qualifiers: CVA mechanism: unspecified Qualified Code(s): I63.9 - Cerebral infarction, unspecified Hypertension Qualifiers: Hypertension type: essential hypertension Qualified Code(s): I10 - Essential ( primary) hypertension Condition: Stable Disposition: ADMITTED INPATIENT Scribe Attestation: 01/18/17 04:24 I personally performed the services described in the documentation, reviewed and edited the documentation which was dictated to the scribe in my presence, and it accurately records my words and actions. (JIM QUINTERO) Scribe Documentation - Scribe Written by Scribe:: Sabas Ireland, 01/17/[id number] acting as scribe for :: Jabari <АНДРЕЙ ROSS - Last Filed: 01/17/17 20:44>
[2017-01-17] MEDS ORDERED: DOCUSATE SODIUM 100 MG CAPSULE PO PRN (20:21)
[2017-01-17] MEDS ORDERED: ACETAMINOPHEN 325 MG TABLET PO PRN (20:21)
--- NOTE | 2017-01-17 20:22 | RADIOLOGY REPORT (SQ) ---
EXAM DESCRIPTION: MRI HEAD WITHOUT COMPLETED DATE/TIME: 01/17/2017 8:01 pm REASON FOR STUDY: R sided weakness, evaluate for CVA COMPARISON: None. TECHNIQUE: Multiplanar imaging includes non-contrasted T1, T2, FLAIR, and diffusion with ADC map seq uences. Images stored on PACS. LIMITATIONS: None. FINDINGS: ANATOMY: No anomalies. Normal vascular flow voids. Pituitary fossa normal. CSF SPACES: Normal in size and contour. No hemorrhage. CEREBRUM: Sulci and gyri normal in size and contour. Normal white matter signal on FLAIR imaging. No evidence of hemorrhage, mass, or extraaxial fluid collection. POSTERIOR FOSSA: No signal alteration. No hemorrhage. No edema, masses or mass effect. Internal alysa tory canals, cerebello-pontine angles, mastoids normal. DIFFUSION IMAGING: Positive for acute or sub-acute for lacunar infarct in the left frontal lobe in th e posterior periventricular white matter, measuring approximately 2 cm in greatest dimension.. ORBITS: No masses. Globes normal. PARANASAL SINUSES: Small mucous retention cysts in the posterior left ethmoid -sphenoid sinuses. OTHER: No other significant finding. IMPRESSION: Positive for lacunar infarct in the left frontal lobe in the posterior periventricular w aracelis matter, measuring approximately 2 cm in greatest dimension. No evidence for hemorrhage. TECHNICAL DOCUMENTATION: JOB ID: [id number]- All Rights Reserved
--- NOTE | 2017-01-17 20:34 | EKG REPORT ---
SEVERITY:- BORDERLINE ECG - SINUS RHYTHM BORDERLINE T WAVE ABNORMALITIES INFEROLATERAL LEADS. : Confirmed by: Felipe Weir MD 17-Jan-2017 20:33:34
[2017-01-17] MEDS ORDERED: DEXTROSE 40% GEL 15 GM TUBE PO PRN ×2 (21:19)
[2017-01-17] MEDS ORDERED: GLUCAGON,HUMAN RECOMB 1 MG INJ IM PRN (21:19)
[2017-01-17] MEDS ORDERED: DEXTROSE 50%-WATER 25 GM/50 ML DISP.SYRIN IV PRN ×2 (21:19)
[2017-01-17 21:47] LABS: APPEARANCE,URINE CLEAR; BILIRUBIN,URINE NEGATIVE (NEGATIVE); GLUCOSE, URINE 50 mg/dL (NEGATIVE); KETONES,URINE NEGATIVE (NEGATIVE); LEUKOCYTE ESTERASE,URINE NEGATIVE (NEGATIVE); NITRITE,URINE NEGATIVE (NEGATIVE); PROTEIN,URINE 30 mg/dL (NEGATIVE); URINE SPECIFIC GRAVITY 1.026; UROBILINOGEN,URINE NEGATIVE mg/dL (<2.0)
[2017-01-17 21:59] LABS: CREATINE KINASE MB 0.91 ng/mL (<4.55); TROPONIN I 0.033 ng/mL
[2017-01-17] MEDS ORDERED: ATORVASTATIN CALCIUM 80 MG TABLET PO SCH (22:00)
[2017-01-17 22:01] LABS: URINE BARBITURATES SCREEN NEGATIVE; URINE METHADONE SCREEN NEGATIVE; URINE OPIATES LOW NEGATIVE; URINE PHENCYCLIDINE SCREEN NEGATIVE
--- NOTE | 2017-01-17 22:45 | RADIOLOGY REPORT (SQ) ---
EXAM DESCRIPTION: CAROTID DOPPLER COMPLETED DATE/TIME: 01/17/2017 10:36 pm REASON FOR STUDY: cva COMPARISON: None. TECHNIQUE: Grayscale ultrasound, Doppler velocity and spectra, and color Doppler images acquired of the extra-cranial carotid and vertebral arteries. Images stored on PACS. LIMITATIONS: None. FINDINGS: RIGHT CAROTID CCA Velocities: Within normal limits. ICA Velocities Peak systolic 68 m/s. End diastolic 33 m/s. Proximal ICA/CCA peak systolic ratio 1.2. Spectra normal. No significant plaque. LEFT CAROTID CCA Velocities: Within normal limits. ICA Velocities Peak systolic 70 m/s. End diastolic 33 m/s. Proximal ICA/CCA peak systolic ratio 1.0. Spectra normal. No significant plaque. VERTEBRAL ARTERIES: Antegrade flow. Normal waveforms. SUBCLAVIAN ARTERIES: No finding. OTHER: No other significant finding. IMPRESSION: NO HEMODYNAMICALLY SIGNIFICANT STENOSIS. COMMENT: Quality ID #[id number]: Velocity criteria are extrapolated from the diameter data as defined by t halima Society of Radiologists in Ultrasound Consensus Conference. Radiology 2003: 229; 340-346. TECHNICAL DOCUMENTATION: JOB ID: [id number] [employer]- All Rights Reserved
[2017-01-17] MEDS: HEPARIN SOD (PORCINE) 5,000 UNIT/ML 1 ML SYRINGE SUBCUT SCH (23:12)
[2017-01-17] MEDS: INSULIN LISPRO 100 UNIT/ML 3 ML VIAL SUBCUT PRN (23:16)
[2017-01-17] MEDS ORDERED: ENALAPRILAT DIHYDRATE INJ/PF 1.25 MG/1 ML SDV IV PRN (23:24)
--- NOTE | 2017-01-17 23:39 | PDOC H&P ---
History of Present Illness Admission Date/PCP: 01/17/17 20:22 Patient complains of: Right-sided weakness 6 days History of Present Illness: WHITNEY HENRY is a 46 year old male with a past medical history of remote substance abuse, tobacco dependence, seizure disorder, hypertension, diabetes and chronic noncompliance who did his usual state of health until approximately 6 days ago noted right-sided weakness and difficulty with balance in addition to some blurred vision and headache. He states his strength has returned substantially to the right side and his continue to work however has not returned to baseline. He admits medication lifestyle and medication noncompliance. He was previously evaluated for TIA September 2016 and received education but was lost to follow-up. He does not check his blood pressure nor glucose on a regular basis. In the emergency room he has found to have a blood pressure of 170/110, 4+ out of 5 strength in the right upper and lower extremity and an MRI with positive 2 cm left sided frontal lacunar infarct. He is referred to the hospitalist for admission. Past Medical History Cardiac Medical History: Reports: Congestive Heart Failure, Hypertension Neurological Medical History: Reports: Seizures Endocrine Medical History: Reports: Diabetes Mellitus Type 2 Musculoskeltal Medical History: Reports: Arthritis, Gout Psychiatric Medical History: Reports: Depression Social History Information Source: Patient Lives with: Alone Smoking Status: Current Every Day Smoker Frequency of Alcohol Use: Rare Hx Recreational Drug Use: Yes Drugs: Other - Methamphetamine remotely - Advance Directive Resuscitation Status: Full Code Family History Family History: CAD, CVA, DM Parental Family History Reviewed: Yes Children Family History Reviewed: Yes Sibling(s) Family History Reviewed.: Yes Medication/Allergy Home Medications: No Home Medications 01/17/17 Allergies/Adverse Reactions: lamotrigine [From Lamictal] Allergy (Verified 08/16/16 16:40) levetiracetam [From Keppra] Allergy (Verified 08/16/16 16:40) phenytoin [From Dilantin] Allergy (Verified 08/16/16 16:39) tramadol Allergy (Verified 08/16/16 16:39) Review of Systems Constitutional: ABSENT: chills, fever(s), headache(s), weight gain, weight loss Eyes: ABSENT: visual disturbances Ears: ABSENT: hearing changes Cardiovascular: ABSENT: chest pain, dyspnea on exertion, edema, orthropnea, palpitations Respiratory: ABSENT: cough, hemoptysis Gastrointestinal: ABSENT: abdominal pain, constipation, diarrhea, hematemesis, hematochezia, nausea, vomiting Genitourinary: ABSENT: dysuria, hematuria Musculoskeletal: ABSENT: joint swelling Integumentary: ABSENT: rash, wounds Neurological: ABSENT: abnormal gait, abnormal speech, confusion, dizziness, focal weakness, syncope Psychiatric: ABSENT: anxiety, depression, homidical ideation, suicidal ideation Endocrine: ABSENT: cold intolerance, heat intolerance, polydipsia, polyuria Hematologic/Lymphatic: ABSENT: easy bleeding, easy bruising Physical Exam Vital Signs: Temp Pulse Resp BP Pulse Ox 97.6 F 75 26 H 175/112 H 98 01/17/17 18:05 01/17/17 21:00 01/17/17 22:01 01/17/17 22:01 01/17/17 22:01 General appearance: PRESENT: no acute distress Head exam: PRESENT: atraumatic, normocephalic Eye exam: PRESENT: conjunctiva pink, EOMI, PERRLA. ABSENT: scleral icterus Ear exam: PRESENT: normal external ear exam Mouth exam: PRESENT: moist, tongue midline Neck exam: ABSENT: carotid bruit, JVD, lymphadenopathy, thyromegaly Respiratory exam: PRESENT: clear to auscultation peewee. ABSENT: rales, rhonchi, wheezes Cardiovascular exam: PRESENT: RRR. ABSENT: diastolic murmur, rubs, systolic murmur Pulses: PRESENT: normal dorsalis pedis pul Vascular exam: PRESENT: normal capillary refill GI/Abdominal exam: PRESENT: normal bowel sounds, soft. ABSENT: distended, guarding, mass, organolmegaly, rebound, tenderness Rectal exam: PRESENT: deferred Extremities exam: PRESENT: full ROM. ABSENT: calf tenderness, clubbing, pedal edema Musculoskeletal exam: PRESENT: other - Right-sided 4+ out of 5 strength Neurological exam: PRESENT: alert, awake, oriented to person, oriented to place , oriented to time, oriented to situation, CN II-XII grossly intact, other - Right-sided 4+ out of 5 strength. ABSENT: motor sensory deficit Psychiatric exam: PRESENT: appropriate affect, normal mood, other. ABSENT: homicidal ideation, suicidal ideation Skin exam: PRESENT: dry, intact, warm. ABSENT: cyanosis, rash Results Laboratory Results: 01/17/17 21:21 Urine Color YELLOW Urine Appearance CLEAR Urine pH 5.0 Ur Specific [place]ana 1.026 Urine Protein 30 H Urine Glucose (UA) 50 H Urine Ketones NEGATIVE Urine Blood NEGATIVE Urine Nitrite NEGATIVE Ur Leukocyte Esterase NEGATIVE Urine WBC (Auto) 1 Urine RBC (Auto) 1 01/17/17 01/17/17 21:23 21:23 Creatine Kinase 70 CK-MB (CK-2) 0.91 Troponin I 0.033 Impressions: Head CT 01/17/17 18:22 IMPRESSION: No significant interval change. No acute changes. Other findings as noted above Head MRI 01/17/17 19:18 IMPRESSION: Positive for lacunar infarct in the left frontal lobe in the posterior periventricular white matter, measuring approximately 2 cm in greatest dimension. No evidence for hemorrhage. Carotid Doppler Study 01/17/17 20:23 IMPRESSION: NO HEMODYNAMICALLY SIGNIFICANT STENOSIS. Assessment & Plan - Diagnosis (1) CVA (cerebral vascular accident) Is this a current diagnosis for this admission?: YesPlan: Acute CVA with multiple uncontrolled risk factors complicated by noncompliance. He was admitted with a CVA care set to a monitored bed with permissive hypertension, high-dose statin, aspirin with follow up imaging and labs. He will receive education in physical therapy (2) HTN (hypertension) Is this a current diagnosis for this admission?: YesPlan: Chronically uncontrolled permissive hypertension Vasotec 0.625 every 12 hours as needed systolic pressure greater than 200 or diastolic greater than 110. (3) Diabetes 1.5, managed as type 2 Is this a current diagnosis for this admission?: YesPlan: A1c ordered, sliding scale insulin ordered and education pending (4) Tobacco dependence Is this a current diagnosis for this admission?: YesPlan: Tobacco Dependence patient received tobacco cessation counseling and offered nicotine replacement options - Time Time Spent: 50 to 70 Minutes - Inpatient Certification Medical Necessity: Need Close Monitoring Due to Risk of Patient Decompensation
[2017-01-18 03:43] LABS: CHOLESTEROL 175.44 mg/dL (0-200); Direct HDL 31 mg/dL (>40); TRIGLYCERIDES 328 mg/dL (<150)
[2017-01-18 03:54] LABS: DIRECT LDL 118 mg/dL (<100)
[2017-01-18 03:56] LABS: CREATINE KINASE MB 0.81 ng/mL (<4.55); TROPONIN I 0.044 ng/mL; VLDL CHOLESTEROL 65.6 mg/dL (10-31)
[2017-01-18] MEDS: HEPARIN SOD (PORCINE) 5,000 UNIT/ML 1 ML SYRINGE SUBCUT SCH (05:26)
[2017-01-18] MEDS ORDERED: ASPIRIN 325 MG TABLET, ENT COATED PO SCH (10:00)
[2017-01-18 10:41] LABS: CREATINE KINASE MB 0.86 ng/mL (<4.55); TROPONIN I 0.047 ng/mL
[2017-01-18] MEDS: INSULIN LISPRO 100 UNIT/ML 3 ML VIAL SUBCUT PRN (12:00)
--- NOTE | 2017-01-18 12:53 | XCELERA REPORT ---
[address] [address] Transthoracic Echocardiogram Report Name: WHITNEY HENRY Age: 46 yrs Gender: Male : 1970 Patient Status: Inpatient Patient Location: [id number]\316\[id number]\A Study Date: 01/18/2017 08:56 AM Height: 68 in Weight: 205 lb BSA: 2.1 m2 Procedure: A two-dimensional transthoracic echocardiogram with color flow and Doppler was performed. The study was technically difficult with many images being suboptimal in quality. Reason For Study: cva History: CVA. Ordering Physician: YOMI HERNANDEZ Performed By: Kelly Ying Interpretation Summary There is no obvious cardiac source of embolus noted on this transthoracic echocardiogram. Follow-up with a [facility] is suggested if cardiac source is still suspected. The left ventricle is moderately dilated. LV EF is 40% to 45% Left ventricular systolic function is mild to moderately reduced. There is mild to moderate global hypokinesis of the left ventricle. The right ventricle is normal in size and function. The left atrial size is normal. There is no evidence of mitral valve prolapse. There is no mitral valve stenosis. There is a mild amount of mitral regurgitation There is no aortic valve stenosis There is no LVOT obstruction. No aortic regurgitation is present. There is no tricuspid stenosis. There is a trace to mild amount of tricuspid regurgitation There is mild pulmonary hypertension by echo RVSP is 38 tto 43 mm of Hg , with RA mean of 5 to 10. There is no pericardial effusion. There is no obvious cardiac source of embolus noted on this transthoracic echocardiogram. Follow-up with a [facility] is suggested if cardiac source is still suspected MMode/2D Measurements \T\ Calculations RVDd: 2.7 cm LVIDd: 6.2 cm FS: 20.2 % Ao root diam: 2.7 cm IVSd: 0.92 cm LVIDs: 4.9 cm EDV(Teich): 191.9 ml LVPWd: 0.96 cmESV(Teich): 113.9 mlAo root area: 5.6 cm2 EF(Teich): 40.6 % LA dimension: 3.4 cm LVOT diam: 2.3 cm LVOT area: 4.1 cm2 Doppler Measurements \T\ Calculations MV E max lavonne: MV P1/2t max lavonne: Ao V2 max: LV V1 max P.9 cm/sec 82.9 cm/sec 125.1 cm/sec 2.7 mmHg MV A max lavonne: MV P1/2t: 63.3 msec Ao max PG: LV V1 max: 66.1 cm/sec MVA(P1/2t): 3.5 cm2 6.3 mmHg 82.4 cm/sec MV E/A: 1.3 MV dec slope: FLAVIO(V,D): 2.7 cm2 383.8 cm/sec2 PA V2 max: TR max lavonne: 73.5 cm/sec 285.1 cm/sec PA max PG: TR max P.5 mmHg 2.2 mmHg Left Ventricle The left ventricle is moderately dilated. There is normal left ventricular wall thickness. LV EF is 40% to 45%. Left ventricular systolic function is mild to moderately reduced. There is mild to moderate global hypokinesis of the left ventricle. There is no thrombus. Right Ventricle The right ventricle is normal in size and function. Atria The right atrium is normal. The left atrial size is normal. Mitral Valve There is no evidence of mitral valve prolapse. There is no vegetation seen on the mitral valve. There is no mitral valve stenosis. There is a mild amount of mitral regurgitation. Aortic Valve There is no aortic valvular vegetation. There is no aortic valve stenosis. There is no LVOT obstruction. No aortic regurgitation is present. Tricuspid Valve There is no tricuspid stenosis. There is a trace to mild amount of tricuspid regurgitation. There is mild pulmonary hypertension by echo. RVSP is 38 tto 43 mm of Hg , with RA mean of 5 to 10. Pulmonic Valve There is no pulmonic valvular stenosis. There is no pulmonic valvular regurgitation. Great Vessels The aortic root is normal size. Effusions There is no pericardial effusion. : YOMI HERNANDEZ > Sondra Smith
[2017-01-18 12:56] VITALS: BP 174/96
--- NOTE | 2017-01-18 13:12 | PDOC DISCHARGE SUMMARY ---
General - Admit/Disc Date/PCP Admission Date/Primary Care Provider: 01/17/17 20:22 Discharge Date: 01/18/17 - Discharge Diagnosis (1) CVA (cerebral vascular accident) Is this a current diagnosis for this admission?: YesSummary: Acute left frontal CVA on MRI (2) HTN (hypertension) Is this a current diagnosis for this admission?: Yes (3) Tobacco dependence Is this a current diagnosis for this admission?: Yes (5) Diabetes 1.5, managed as type 2 Is this a current diagnosis for this admission?: Yes - Additional Information Resuscitation Status: Full Code Discharge Activity: Activity As Tolerated Home Medications: Aspirin [Ecotrin 325 mg EC Tablet] 325 mg PO DAILY tabec 01/18/17 Atorvastatin Calcium [Lipitor 80 mg Tablet] 80 mg PO QHS #30 tablet 01/18/17 Carvedilol [Coreg 25 mg Tablet] 1 tab PO Q12 #60 tab 01/18/17 Lisinopril 20 mg PO BID #60 tablet 01/18/17 Metformin HCl [Glucophage XR 500 mg Tablet] 500 mg PO BID #60 tablets 01/18/17 History of Present Illness History of Present Illness: WHITNEY HENRY is a 46 year old male with a several day history of right- sided weakness. Patient has a history of a previous TIA but has not been compliant with his medications. He also had continue to smoke. The patient had a head CT that was unremarkable however the MRI confirmed a left sided frontal lacunar infarct. Patient is admitted for further evaluation Hospital Course Hospital Course: 6-year-old who presented with right-sided weakness. Patient was found to have an acute CVA in the left frontal area. The patient had not been compliant with his medications and had been smoking. He was restarted on aspirin and had carotid Doppler done which showed no significant stenosis. He also had an echocardiogram the results of which are pending at the time of this dictation. He has not however had any cardiac arrhythmias. Patient also restarted on Lipitor and he was also hypertensive when he presented but was not taking his medications. Patient is discharged home in stable condition. Physical Exam Vital Signs: Temp Pulse Resp BP Pulse Ox 97.7 F 68 18 174/96 H 100 01/18/17 12:59 01/18/17 12:59 01/18/17 12:59 01/18/17 12:59 01/18/17 12:59 Intake & Output 01/17/17 01/18/17 01/19/17 06:59 06:59 06:59 Intake Total 1059 Balance 1059 Weight 94.2 kg General appearance: PRESENT: no acute distress Eye exam: PRESENT: conjunctiva pink. ABSENT: scleral icterus Mouth exam: PRESENT: moist, tongue midline Neck exam: ABSENT: JVD Respiratory exam: PRESENT: clear to auscultation peewee. ABSENT: rales, rhonchi, wheezes Cardiovascular exam: PRESENT: RRR. ABSENT: diastolic murmur, rubs, systolic murmur GI/Abdominal exam: PRESENT: normal bowel sounds, soft. ABSENT: distended, guarding, mass, organolmegaly, rebound, tenderness Extremities exam: ABSENT: calf tenderness, clubbing, pedal edema Neurological exam: PRESENT: alert, awake, oriented to person, oriented to place , oriented to time, oriented to situation, CN II-XII grossly intact. ABSENT: motor sensory deficit Psychiatric exam: PRESENT: appropriate affect Skin exam: PRESENT: dry, intact, warm. ABSENT: cyanosis, rash Results Laboratory Results: 01/17/17 01/18/17 21:21 03:25 Triglycerides 328 H Cholesterol 175.44 LDL Cholesterol Direct 118 H VLDL Cholesterol 65.6 H HDL Cholesterol 31 L Urine Color YELLOW Urine Appearance CLEAR Urine pH 5.0 Ur Specific [place] 1.026 Urine Protein 30 H Urine Glucose (UA) 50 H Urine Ketones NEGATIVE Urine Blood NEGATIVE Urine Nitrite NEGATIVE Ur Leukocyte Esterase NEGATIVE Urine WBC (Auto) 1 Urine RBC (Auto) 1 01/17/17 01/17/17 01/18/17 21:23 21:23 03:25 Creatine Kinase 70 67 CK-MB (CK-2) 0.91 Troponin I 0.033 01/18/17 01/18/17 01/18/17 03:25 09:59 09:59 Creatine Kinase 56 CK-MB (CK-2) 0.81 0.86 Troponin I 0.044 0.047 Impressions: Head CT 01/17/17 18:22 IMPRESSION: No significant interval change. No acute changes. Other findings as noted above Head MRI 01/17/17 19:18 IMPRESSION: Positive for lacunar infarct in the left frontal lobe in the posterior periventricular white matter, measuring approximately 2 cm in greatest dimension. No evidence for hemorrhage. Carotid Doppler Study 01/17/17 20:23 IMPRESSION: NO HEMODYNAMICALLY SIGNIFICANT STENOSIS. Qualifiers PATEINT BEING DISCHARGED WITH ANY OF THE FOLLOWING DIAGNOSIS?: Stroke Stroke Pt being discharged on Anti-thrombolytic therapy?: Yes Stroke Pt being discharged on Anti-coagulation therapy?: No Reason(s) for not prescribing Anti-coagulation therapy:: Not indicated Stroke Pt being discharged on Statins?: Yes Plan Discharge Plan: Is discharged home in stable condition. Will follow up with his primary care doctor in 1-2 weeks Time Spent: Less than 30 Minutes
== END 2017-01-18 13:46 | disposition home or self-care (01) | DRG 66 ==
LOC: ER 17:59 → EH 20:22 → UNDOADMIN 20:36 → EH 20:36 → 3W 22:30
PROVIDERS: ADMIT Internal Medicine; ATTEND Internal Medicine
DX: I63.8 Other cerebral infarction (principal); R47.81 Slurred speech; I50.9 Heart failure, unspecified; I11.0 Hypertensive heart disease with heart failure; E11.9 Type 2 diabetes mellitus without complications; F17.210 Nicotine dependence, cigarettes, uncomplicated; G40.909 Epilepsy, unspecified, not intractable, without status epilepticus; Z91.19 Patient's noncompliance with other medical treatment and regimen
CPT/HCPCS: 36415; 70450; 70551; 80053; 80061; 80307; 81001; 82550; 82553; 82962; 83036; 83880; 84443; 84484; 85025; 85652; 93005; 93010; 93306; 93880; 99285; J1644; J1815; J3490

== ENCOUNTER 2017-01-23 15:33 | Emergency (ER) | payer SELFPAY ==
--- NOTE | 2017-01-23 16:49 | ER Document Report ---
ED Medical Screen (RME) - General Chief Complaint: Headache Stated Complaint: HEADACHE Time Seen by Provider: 01/23/17 16:33 Mode of Arrival: Ambulatory Information source: Patient, [facility] Records TRAVEL OUTSIDE OF THE [place] IN LAST 30 DAYS: No - HPI Onset: Yesterday Onset/Duration: Gradual, Constant Notes: 01/23/17 16:46 Patient is a 46-year-old male with recent hospital admission last week for acute left-sided frontal lobe CVA. Patient discharged home on January 18. Patient has not yet followed up with primary care nor has he filled any of the prescriptions given to him at time of hospital discharge. Patient is presenting to the emergency department today complaining of a headache. Patient also is requesting that we clear him to return back to work. Patient denies any new focal neurologic complaints. - Related Data Allergies/Adverse Reactions: lamotrigine [From Lamictal] Allergy (Verified 08/16/16 16:40) levetiracetam [From Keppra] Allergy (Verified 08/16/16 16:40) phenytoin [From Dilantin] Allergy (Verified 08/16/16 16:39) tramadol Allergy (Verified 08/16/16 16:39) Past Medical History - General Information source: Patient, [facility] Records - Past Medical History Cardiac Medical History: Reports: Hx Congestive Heart Failure, Hx Hypertension Neurological Medical History: Reports: Hx Cerebrovascular Accident, Hx Seizures Endocrine Medical History: Reports: Hx Diabetes Mellitus Type 2 Renal/ Medical History: Denies: Hx Peritoneal Dialysis Musculoskeltal Medical History: Reports Hx Arthritis, Reports Hx Gout Psychiatric Medical History: Reports: Hx Depression Review of Systems - Review of Systems Neurological/Psychological: Headaches -: Yes All other systems reviewed and negative Physical Exam - Vital signs Vitals: Temp Pulse Resp BP Pulse Ox 98 F 101 H 18 172/112 H 100 01/23/17 15:34 01/23/17 15:34 01/23/17 15:34 01/23/17 15:34 01/23/17 15:34 Interpretation: Normal - General General appearance: Appears well, Alert - HEENT Head: Normocephalic, Atraumatic Eyes: Normal Pupils: PERRL - Respiratory Respiratory status: No respiratory distress Chest status: Nontender Breath sounds: Normal Chest palpation: Normal - Cardiovascular Rhythm: Regular Heart sounds: Normal auscultation Murmur: No - Abdominal Inspection: Normal Distension: No distension Bowel sounds: Normal Tenderness: Nontender Organomegaly: No organomegaly - Back Back: Normal, Nontender - Extremities General upper extremity: Normal inspection, Nontender, Normal color, Normal ROM , Normal temperature General lower extremity: Normal inspection, Nontender, Normal color, Normal ROM , Normal temperature, Normal weight bearing. No: Mau's sign - Neurological Neuro grossly intact: Yes Cognition: Normal Orientation: AAOx4 Jan Coma Scale Eye Opening: Spontaneous [place] Coma Scale Verbal: Oriented [place] Coma Scale Motor: Obeys Commands [place] Coma Scale Total: 15 Speech: Normal Motor strength normal: LUE, RUE, LLE, RLE Sensory: Normal - Psychological Associated symptoms: Normal affect, Normal mood - Skin Skin Temperature: Warm Skin Moisture: Dry Skin Color: Normal Course - Re-evaluation Re-evalutation: 01/23/17 16:48 I have reviewed patient's recent inpatient admission along with his discharge summary. Patient does not on any medications if he has not yet filled his prescription since hospital discharge. I do not feel comfortable clearing him for work given I was not involved in his care during his recent admission. Will check head CT today to be sure there is no post CVA hemorrhage or other abnormalities. Emphasized need for primary care follow-up if ED workup today is unremarkable. 01/23/17 17:[address] was read as negative by radiologist. Emphasize need for primary care follow-up. Also emphasized need to fill prescriptions given from hospital discharge. - Vital Signs Vital signs: Temp Pulse Resp BP Pulse Ox 98 F 101 H 18 172/112 H 100 01/23/17 15:34 01/23/17 15:34 01/23/17 16:45 01/23/17 15:34 01/23/17 15:34 Doctor's Discharge - Discharge Clinical Impression: Headache Condition: Good Disposition: HOME, SELF-CARE Instructions: Headache ([facility]) Additional Instructions: It is very important that you fill the prescriptions given to you from your last hospital discharge. Follow-up with a primary care provider. Referrals: REBECCA MORRISSEY MD [ACTIVE STAFF] - Follow up as needed
--- NOTE | 2017-01-23 17:09 | RADIOLOGY REPORT (SQ) ---
EXAM DESCRIPTION: CT HEAD WITHOUT COMPLETED DATE/TIME: 01/23/2017 5:00 pm REASON FOR STUDY: headache with recent cva COMPARISON: 01/17/2017. TECHNIQUE: Axial images acquired through the brain without intravenous contrast. Images reviewed wi th bone, brain and subdural windows. Images stored on PACS. All CT scanners at this facility use dose modulation, iterative reconstruction, and/or weight based d osing when appropriate to reduce radiation dose to as low as reasonably achievable (ALARA). [facility]: Dose Right [facility]: CareDose [facility]: Dose Right [facility]: Teradose 4D [facility]: Gen9 RADIATION DOSE: mGy. LIMITATIONS: None. FINDINGS: VENTRICLES: Normal size and contour. CEREBRUM: No masses. No hemorrhage. No midline shift. Normal granados/white matter differentiation. N o evidence for acute infarction. CEREBELLUM: No masses. No hemorrhage. No alteration of density. No evidence for acute infarction. EXTRAAXIAL SPACES: No fluid collections. No masses. ORBITS AND GLOBE: No intra- or extraconal masses. Normal contour of globe without masses. CALVARIUM: No fracture. PARANASAL SINUSES: No fluid or mucosal thickening. SOFT TISSUES: No mass or hematoma. OTHER: No other significant finding. IMPRESSION: NORMAL BRAIN CT WITHOUT CONTRAST. TECHNICAL DOCUMENTATION: JOB ID: [id number] Quality ID # [id number]: Final reports with documentation of one or more dose reduction techniques (e.g., Au tomated exposure control, adjustment of the mA and/or kV according to patient size, use of iterative reconstruction technique) 2010 [employer]- All Rights Reserved
[2017-01-23] MEDS ORDERED: CLONIDINE HCL 0.2 MG TABLET PO ONE (17:24)
[2017-01-23 17:54] VITALS: BP 155/97
== END 2017-01-23 17:37 | disposition home or self-care (01) ==
LOC: ER 15:33
DX: R51 Headache (principal); I50.9 Heart failure, unspecified; I11.0 Hypertensive heart disease with heart failure; E11.9 Type 2 diabetes mellitus without complications; Z86.73 Personal history of transient ischemic attack (TIA), and cerebral infarction without residual deficits; Z88.6 Allergy status to analgesic agent
CPT/HCPCS: 70450; 99283

== ENCOUNTER 2018-10-15 14:06 | Emergency (ER) | payer SELFPAY ==
[2018-10-15] MEDS ORDERED: COLCHICINE 0.6 MG TABLET PO ONE (16:02)
--- NOTE | 2018-10-15 16:14 | ER Document Report ---
ED Extremity Problem, Upper - General Chief Complaint: Hand Pain Stated Complaint: LEFT HAND PAIN Time Seen by Provider: 10/15/18 15:38 Primary Care Provider: [facility] [Provider Group] - Follow up tomorrow Mode of Arrival: Ambulatory Information source: Patient Notes: 48-year-old male presents to ED for complaint of left hand and wrist pain from gout. States he has a history of gout and has not been on his allopurinol and does not have any. States he also has a history of carpal tunnel syndrome. He states he works 12 8 hours a day for 7 days a week. Patient is alert oriented respirations regular and unlabored speaking in full sentences. TRAVEL OUTSIDE OF THE [place] IN LAST 30 DAYS: No - HPI Patient complains to provider of: Pain, Hand, Wrist Onset: This morning Recent injury: No Quality of pain: Burning, Sharp Severity of pain: Severe Pain Level: 5 Associated symptoms: None Exacerbated by: Movement, Exertion Relieved by: Nothing Similar symptoms previously: Yes Recently seen / treated by doctor: No - Related Data Allergies/Adverse Reactions: lamotrigine [From Lamictal] Allergy (Verified 10/15/18 14:07) levetiracetam [From Keppra] Allergy (Verified 10/15/18 14:07) phenytoin [From Dilantin] Allergy (Verified 10/15/18 14:07) tramadol Allergy (Verified 10/15/18 14:07) Past Medical History - General Information source: Patient - Social History Smoking Status: Current Every Day Smoker Cigarette use (# per day): Yes - Half pack per day Smoking Education Provided: Yes - 4 minutes Frequency of alcohol use: None Drug Abuse: None Lives with: Family Family History: CAD, CVA, DM Patient has suicidal ideation: No Patient has homicidal ideation: No - Past Medical History Cardiac Medical History: Reports: Hx Congestive Heart Failure, Hx Hypertension Pulmonary Medical History: Reports: None EENT Medical History: Reports: None Neurological Medical History: Reports: Hx Cerebrovascular Accident, Hx Seizures Endocrine Medical History: Reports: Hx Diabetes Mellitus Type 2 Renal/ Medical History: Reports: None Malignancy Medical History: Reports None GI Medical History: Reports: None Musculoskeletal Medical History: Reports Hx Arthritis, Reports Hx Gout Skin Medical History: Reports None Psychiatric Medical History: Reports: Hx Depression Traumatic Medical History: Reports: None Review of Systems - Review of Systems Constitutional: No symptoms reported EENT: No symptoms reported Cardiovascular: No symptoms reported Respiratory: No symptoms reported Gastrointestinal: No symptoms reported Genitourinary: No symptoms reported Male Genitourinary: No symptoms reported Musculoskeletal: Gout, Joint pain, Joint swelling - Left wrist Skin: No symptoms reported Hematologic/Lymphatic: No symptoms reported Neurological/Psychological: No symptoms reported -: Yes All other systems reviewed and negative - left wrist Physical Exam - Vital signs Vitals: Temp Pulse Resp BP Pulse Ox 98.6 F 98 16 173/97 H 96 10/15/18 14:23 10/15/18 14:23 10/15/18 14:23 10/15/18 14:23 10/15/18 14:23 Interpretation: Normal - General General appearance: Appears well, Alert - HEENT Head: Normocephalic, Atraumatic Eyes: Normal Pupils: PERRL - Respiratory Respiratory status: No respiratory distress Chest status: Nontender Breath sounds: Normal Chest palpation: Normal - Cardiovascular Rhythm: Regular Heart sounds: Normal auscultation Murmur: No - Abdominal Inspection: Normal Distension: No distension Bowel sounds: Normal Tenderness: Nontender Organomegaly: No organomegaly - Back Back: Normal, Nontender - Extremities General upper extremity: Normal temperature General lower extremity: Normal inspection, Nontender, Normal color, Normal ROM, Normal temperature, Normal weight bearing. No: Mau's sign Wrist: Tender, Limited ROM - Due to swelling and gout, Other - Erythematous Hand: Tender - Neurological Neuro grossly intact: Yes Cognition: Normal Orientation: AAOx4 Jan Coma Scale Eye Opening: Spontaneous Jan Coma Scale Verbal: Oriented [place] Coma Scale Motor: Obeys Commands Jan Coma Scale Total: 15 Speech: Normal Motor strength normal: LUE, RUE, LLE, RLE Sensory: Normal - Psychological Associated symptoms: Normal affect, Normal mood - Skin Skin Temperature: Warm Skin Moisture: Dry Skin Color: Normal Course - Re-evaluation Re-evalutation: 10/15/18 16:26 Patient was treated with colchicine and a cockup splint for his gout to the wrist. He states this is not the first or second time he had gout in this area. He states he does not have any of the medication at home for his gout. He requested the wrist splint so that he could use his hand at work. Patient's Accu-Chek was in the 380s. states he is not been taking his metformin because he does not have any. Prescription for the metformin was given and family stated they would fill it today. Patient [facility]. Patient and family verbalized understanding and agreement with treatment plan. - Vital Signs Vital signs: Temp Pulse Resp BP Pulse Ox 97.6 F 94 16 154/84 H 98 10/15/18 16:18 10/15/18 16:18 10/15/18 16:18 10/15/18 16:18 10/15/18 16:18 - Laboratory Laboratory results interpreted by me: 10/15/18 16:05 POC Glucose 387 H Procedures - Immobilization Left Wrist Time completed: 16:28 Immobilizer type: Cock-up Performed by: PCT Post-Proc Neuro Vasc Exam: Normal Alignment checked and good: Yes Discharge - Discharge Clinical Impression: Gout of left wrist Qualifiers: Gout etiology: unspecified cause Chronicity: chronic Qualified Code(s): M1A.0320 - Idiopathic chronic gout, left wrist, without tophus (tophi) Condition: Stable Disposition: HOME, SELF-CARE Additional Instructions: Diabetes You have an abnormally high blood sugar, hx of diabetes. High blood sugar can be due to medications, , or the stress of illness. (These cases are "borderline diabetes.") If the doctor feels your high blood sugar might get better with time, you may not require treatment now. You will be scheduled for further evaluation. It's very important that you follow through. Uncontrolled high blood sugar leads to early heart disease, strokes, nerve damage, eye damage, and kidney damage. All diabetics should follow a diet designed to control the blood sugar. Overweight diabetics should exercise regularly and lose weight. If this is not sufficient to control the blood sugar, pills or insulin shots are necessary. Younger people who develop diabetes almost always require insulin daily. Home testing of blood sugars or urine sugar is required. Diabetic teaching is available to help you figure insulin doses and monitor the blood sugar. Call the physician if there is faintness, excess sleepiness, or very rapid breathing. If hypoglycemia (LOW blood sugar) develops, symptoms are shakiness, weakness, sweating, and confusion. In this case, you should eat or drink something with sugar at once. Gout You have been diagnosed as having gout. Gout is a problem caused by an excess of uric acid, a natural chemical found in the body. The cause of this disease is unknown. Gout arthritis occurs when crystals of uric acid form in the joints. The big toe is the most common joint involved, but any joint can become affected. Persons with gout may also form uric acid kidney stones, resulting in flank pain and blood in the urine. Nodules of uric acid may form under the skin. The first step of treatment is to decrease the inflammation in the joint with antiinflammatory medication. Medication to lower the uric acid level in the blood may then be prescribed. This medication should be taken regularly, as any sudden change in dosage may provoke an attack of gout. Some foods, such as red meat, can provoke an attack in some gout sufferers. Call the doctor if new symptoms arise, or if you do not improve. Gout Diet Changing your diet can decrease the uric acid in your blood. High levels of uric acid cause gouty arthritis and uric acid kidney stones. If you have gout, you should avoid meats that are high in purine. Meat products to avoid include liver, kidneys, and brains. In general, poultry is better than red meats. Seafoods to avoid include anchovies, sardines, huynh, mackerel, and scallops. In addition to limiting purine-rich foods, people with gout should limit protein intake to 10-15% of total calories. Carbohydrate intake should be around 50% of total daily calories. Limit fat intake to 30% of total daily calories. Cholesterol intake should be less than 300 mg/day. Maintain or achieve a healthy body weight. Weight loss should be gradual. Rapid weight loss can actually increase uric acid levels temporarily. Alcohol, especially beer, should be avoided. Get plenty of fluids. This dilutes urinary uric acid, and helps prevent uric acid kidney stones. Drink eight to twelve cups of water daily. Colchicine Colchicine is a medication used in acute attacks of gout arthritis. It's usually very effective at stopping an attack if started within the first day of pain. It can also be used to prevent attacks. Standard treatment for an acute attack is two tablets, then one tablet every one or two hours until the pain subsides. Intestinal symptoms such as nausea, vomiting, or diarrhea are common with colchicine. These side effects become more likely with higher doses of the medicine. When taking colchicine for an acute gout attack, stop taking the pills when intestinal symptoms develop. Call the physician if you develop fever, worsening joint pain, rash, shortness of breath or wheezing, itching, or severe abdominal symptoms. Glucophage (Metformin hydrochloride) Glucophage is used to treat diabetes. It helps insulin move sugar from your blood stream into your cells. It also slows production of new blood sugar. Glucophage can be combined with another type of diabetes pill or with insulin injections. Glucophage should NOT be used by patients, true insulin-dependent (juvenile) diabetics, or those prone to acidosis (severe kidney disease, alcoholism, severe heart failure). You MUST NOT receive iodine-containing x-ray dye while taking Glucophage. The medicine must be stopped 2 days before the test. Be certain your doctor is aware you are taking Glucophage before undergoing IVP, angiograms, or other x- rays that require IV injection of dye. Glucophage commonly causes decreased appetite. Some patients may have nausea, vomiting, or diarrhea. If the side effects are severe, call your doctor. Glucophage will not cause hypoglycemia (low blood sugar) when used alone. Some patients using diabetes pills or insulin may experience symptoms of hypoglycemia (flushing, sweats, racing heart, lightheadedness). Eat or drink something sweet. Contact your doctor for further instructions. You may need to reduce the dose of insulin or of the other diabetes pill. FOLLOW-UP CARE: If you have been referred to a physician for follow-up care, call the physicians office for an appointment as you were instructed or within the next two days. If you experience worsening or a significant change in your symptoms, notify the physician immediately or return to the Emergency Department at any time for re-evaluation. Prescriptions: Colchicine [Colchicine 0.6 mg Tablet] 0.6 mg PO DAILY #10 tablet Metformin HCl 500 mg PO BID #60 tablet Forms: Elevated Blood Pressure, Smoking Cessation Education, Return to Work Referrals: [facility] [Provider Group] - Follow up tomorrow
[2018-10-15 16:20] VITALS: BP 154/84
== END 2018-10-15 16:35 | disposition home or self-care (01) ==
LOC: ER 14:06
DX: M1A.0320 Idiopathic chronic gout, left wrist, without tophus (tophi) (principal); E11.9 Type 2 diabetes mellitus without complications; F17.210 Nicotine dependence, cigarettes, uncomplicated; I50.9 Heart failure, unspecified; I11.0 Hypertensive heart disease with heart failure; Z86.73 Personal history of transient ischemic attack (TIA), and cerebral infarction without residual deficits
CPT/HCPCS: 99283; 82962; L3908

== ENCOUNTER 2018-11-19 11:41 | Inpatient (IN) | payer SELFPAY ==
--- NOTE | 2018-11-19 11:54 | ER Document Report ---
ED General - General Stated Complaint: POSSIBLE STROKE Notes: 48-year-old male with hypertension, noncompliance and old left frontal lobe stroke on the left side presents with worsening speech and right-sided weakness arm and face, that was noticed this morning when he was getting picked up for work. He was last seen normal by his at 1:30 in the morning last night. Race score was 2 for EMS for right arm and face weakness and they were unclear if this is new. Apparently also had a seizure last night witnessed by his . TRAVEL OUTSIDE OF THE [place] IN LAST 30 DAYS: No - Related Data Allergies/Adverse Reactions: lamotrigine [From Lamictal] Allergy (Verified 10/15/18 14:07) levetiracetam [From Keppra] Allergy (Verified 10/15/18 14:07) phenytoin [From Dilantin] Allergy (Verified 10/15/18 14:07) tramadol Allergy (Verified 10/15/18 14:07) Past Medical History - Social History Smoking Status: Current Every Day Smoker Family History: CAD, CVA, DM - Past Medical History Cardiac Medical History: Reports: Hx Congestive Heart Failure, Hx Hypertension Neurological Medical History: Reports: Hx Cerebrovascular Accident, Hx Seizures Endocrine Medical History: Reports: Hx Diabetes Mellitus Type 2 Renal/ Medical History: Denies: Hx Peritoneal Dialysis Musculoskeletal Medical History: Reports Hx Arthritis, Reports Hx Gout Psychiatric Medical History: Reports: Hx Depression Review of Systems - Review of Systems Notes: REVIEW OF SYSTEMS GEN: Denies fever, chills, weight loss ENT: Denies sore throat, nasal discharge, ear pain EYES: Denies blurry vision, eye pain, discharge CV: Denies chest pain, palpitations, edema RESP: Denies cough, shortness of breath, wheezing GI: Denies abdominal pain, nausea, vomiting, diarrhea MSK: Denies joint pain/swelling, edema, SKIN: Denies rash, skin lesions LYMPH: Denies swollen glands/lymph nodes speech difficulty right-sided arm weakness PSYCH: Denies depression, suicidal or homicidal ideation PHYSICAL EXAMINATION General: No acute distress, well-nourished Head: Atraumatic, normocephalic ENT: Mouth normal, oropharynx moist, no exudates or tonsillar enlargement Eyes: Conjunctiva normal, pupils equal, lids normal Neck: No JVD, supple, no guarding CVS: Normal rate, regular rhythm, no murmurs Resp: No resp distress, equal and normal breath sounds bilaterally GI: Nondistended, soft, no tenderness to palpation, no rebound or guarding Ext: No deformities, no edema, normal range of motion in upper and lower ext Back: No CVA or midline TTP Skin: No rash, warm Lymphatic: No lymphadeopathy noted Neuro: Awake, alert. Mild right lower face droop. Mild right arm drift. Mild aphasia. Physical Exam - Vital signs Vitals: Pulse Ox 100 11/19/18 11:42 Course - Re-evaluation Re-evalutation: 11/19/18 12:16 Patient presents with strokelike symptoms reminiscent of his past strokes. Revi ewed old recordsleft frontal stroke 1 year ago. Last seen normal 130out of the window for IV TPA. Race score is 2 for mild facial droop and arm drift. Sent to CT for CT/CTA. Received call at 12:[address] Sanabria from radiology stating both studies are negative. 11/19/18 12:32 Reexamined at 12:30 PM. Improving right sided weakness. Blood pressure in the [address] CTA negative, labs are coming back normal. Suspect recrudescence. Discussed with hospitalist Johana Grove for admission to [facility]. To suggest infection. 11/19/18 12:58 Mild hypokalemia otherwise work-up is negative. We will replete this. Discussed with hospitalist for stroke recrudescence work-up. - Vital Signs Vital signs: Temp Pulse Resp BP Pulse Ox 100 11/19/18 11:42 - Laboratory Result Diagrams: 11/19/18 12:05 11/19/18 12:05 Laboratory results interpreted by me: 11/19/18 11/19/18 11/19/18 12:05 12:05 12:07 Hgb 13.4 L Potassium 3.1 L Glucose 184 H POC Glucose 182 H Calcium 8.2 L AST 13 L Total Protein 6.0 L Albumin 3.1 L - Diagnostic Test Radiology reviewed: Image reviewed, Reports reviewed Critical Care Note - Critical Care Note Total time excluding time spent on procedures (mins): 34 Comments: The above patient is critically ill. Not including procedures, but including direct re-evaluations, speaking with patient and/or consultants, interpreting results, and documenting, I spent the total amount of minute listed listed above on critical care time Discharge - Discharge Clinical Impression: CVA (cerebral vascular accident) Qualifiers: CVA mechanism: other Qualified Code(s): I63.89 - Other cerebral infarction Condition: Fair Disposition: ADMITTED INPATIENT Admitting Provider: Summer (Hospitalist) Unit Admitted: [facility]
[2018-11-19 12:17] LABS: ABSOLUTE EOSINOPHILS # (AUTO) 0.1 10^3/uL (0.0-0.6); ABSOLUTE LYMPHOCYTES (AUTO) 1.9 10^3/uL (0.5-4.7); ABSOLUTE MONOCYTES (AUTO) 0.5 10^3/uL (0.1-1.4); ABSOLUTE NEUT (AUTO) 6.2 10^3/uL (1.7-8.2); BASOPHILS % (AUTO) 0.2 % (0-2); EOSINOPHILS % (AUTO) 1.6 % (0-6); HEMATOCRIT 38.3 % (37.9-51.0); HEMOGLOBIN 13.4 g/dL (13.5-17.0); LYMPHOCYTES % (AUTO) 21.8 % (13-45); MEAN CORPUSCULAR HEMOGLOBIN 27.8 pg (27.0-33.4); MEAN CORPUSCULAR HGB CONC 34.9 g/dL (32.0-36.0); MEAN CORPUSCULAR VOLUME 80 fl (80-97); MONOCYTES % (AUTO) 5.7 % (3-13); PLATELET COUNT 182 10^3/uL (150-450); RED CELL DISTRIBUTION WIDTH 13.2 % (11.5-14.0); SEGMENTED NEUTROPHILS % (AUTO) 70.7 % (42-78); TOTAL CELLS COUNTED % (AUTO) 100 %; WHITE BLOOD COUNT 8.7 10^3/uL (4.0-10.5)
--- NOTE | 2018-11-19 12:18 | RADIOLOGY REPORT (SQ) ---
EXAM DESCRIPTION: CT HEAD WITHOUT COMPLETED DATE/TIME: 11/19/2018 11:58 am REASON FOR STUDY: stroke COMPARISON: None. TECHNIQUE: Axial images acquired through the brain without intravenous contrast. Images reviewed wi th bone, brain and subdural windows. Additional sagittal and coronal reconstructions were generated. Images stored on PACS. All CT scanners at this facility use dose modulation, iterative reconstruction, and/or weight based d osing when appropriate to reduce radiation dose to as low as reasonably achievable (ALARA). [facility]: Dose Right [facility]: CareDose [facility]: Dose Right [facility]: Teradose 4D [facility]: Smart RCT Logic RADIATION DOSE: CT Rad equipment meets quality standard of care and radiation dose reduction techniq ues were employed. CTDIvol: 53.2 mGy. DLP: 1070 mGy-cm. mGy. LIMITATIONS: None. FINDINGS: VENTRICLES: Normal size and contour. CEREBRUM: No masses. No hemorrhage. No midline shift. No evidence for acute infarction. Normal gra y/white matter differentiation. No areas of low density in the white matter. CEREBELLUM: No masses. No hemorrhage. No alteration of density. No evidence for acute infarction. EXTRAAXIAL SPACES: No fluid collections. No masses. ORBITS AND GLOBE: No intra- or extraconal masses. Normal contour of globe without masses. CALVARIUM: No fracture. PARANASAL SINUSES: No fluid or mucosal thickening. SOFT TISSUES: No mass or hematoma. OTHER: No other significant finding. IMPRESSION: NORMAL BRAIN CT WITHOUT CONTRAST. EVIDENCE OF ACUTE STROKE: NO. COMMENT: Pertinent positive or negative findings of the imaging study reported as a CRITICAL EXAM luisito GUEVARA MD at12:12 on 11/19/2018. Category of Critical Exam: Code stroke Quality ID # [id number]: Final reports with documentation of one or more dose reduction techniques (e.g., Au tomated exposure control, adjustment of the mA and/or kV according to patient size, use of iterative reconstruction technique) TECHNICAL DOCUMENTATION: JOB ID: [id number] [employer]- All Rights Reserved Reading location - IP/workstation name: [email or web address]
--- NOTE | 2018-11-19 12:23 | RADIOLOGY REPORT (SQ) ---
EXAM DESCRIPTION: CTA NECK COMPLETED DATE/TIME: 11/19/2018 12:05 pm REASON FOR STUDY: stroke COMPARISON: None TECHNIQUE: Axial dynamic scanning technique with dynamic contrast enhancement through the extra-aircraft structural repairer nial carotid and vertebral arteries. Multiplanar reconstruction. 3-D MIPS and Volume-rendered imag es acquired at the workstation and saved to PACS. Images are reviewed in soft tissue, bone, lung w indows. All CT scanners at this facility use dose modulation, iterative reconstruction, and/or weight based d osing when appropriate to reduce radiation dose to as low as reasonably achievable (ALARA). [facility]: Dose Right [facility]: CareDose [facility]: Dose Right [facility]: Teradose 4D [facility]: [employer] CONTRAST TYPE AND DOSE: 70 mL Omnipaque 350- low osmolar. RENAL FUNCTION: Testing waived by the emergency room physician. LIMITATIONS: None. FINDINGS: AORTIC ARCH: Normal three-vessel origin. Bilateral subclavian arteries are patent. No d issection. RIGHT CAROTIDS: Patent common, internal and external carotid arteries without suggestion of significa nt stenosis or irregular plaque. No dissection. RIGHT VERTEBRAL: Vertebral arteries are small but are patent. LEFT CAROTIDS: Patent common, internal and external carotid arteries without suggestion of significan t stenosis or irregular plaque. No dissection. LEFT VERTEBRAL: Vertebral arteries are small but are patent. OTHER: No other significant finding. OTHER: 3-D reconstructions confirm findings. IMPRESSION: NORMAL CTA OF THE EXTRA-CRANIAL CAROTID AND VERTEBRAL ARTERIES. COMMENT: Quality ID #[id number]: Measurements of distal internal carotid diameter were used as the denomina tor for stenosis measurement. TECHNICAL DOCUMENTATION: JOB ID: [id number] Quality ID # [id number]: Final reports with documentation of one or more dose reduction techniques (e.g., Au tomated exposure control, adjustment of the mA and/or kV according to patient size, use of iterative reconstruction technique) 2010 [employer]- All Rights Reserved Reading location - IP/workstation name: [email or web address]
[2018-11-19 12:25] LABS: INTERNATIONAL RATION (INR) 1.02; PROTHROMBIN TIME 13.9 SEC (11.4-15.4)
[2018-11-19 12:26] LABS: PARTIAL THROMBOPLASTIN TIME 31.3 SEC (23.5-35.8)
--- NOTE | 2018-11-19 12:26 | RADIOLOGY REPORT (SQ) ---
EXAM DESCRIPTION: CTA HEAD COMPLETED DATE/TIME: 11/19/2018 12:05 pm REASON FOR STUDY: stroke COMPARISON: None. TECHNIQUE: Post IV contrast scanning, thin section axial imaging through the brain to evaluate the a rterial structures. Source and MIP images are saved and reviewed on PACS. Advanced 3D imaging as volume-rendering, MIPs, SSD performed? yes All CT scanners at this facility use dose modulation, iterative reconstruction, and/or weight based d osing when appropriate to reduce radiation dose to as low as reasonably achievable (ALARA). [facility]: Dose Right [facility]: CareDose [facility]: Dose Right [facility]: Teradose 4D [facility]: [facility] CONTRAST TYPE AND DOSE: contrast/concentration: Isovue 350.00 mg/ml; Total Contrast Delivered: 70.0 ml; Total Saline Delivered: 75.0 ml 70 mL Omnipaque 350- low osmolar. RENAL FUNCTION: Testing waived by emergency room physician appear LIMITATIONS: None. FINDINGS: [place]: The anterior, middle, posterior cerebral arteries are all patent. No ev idence of aneurysm or focal stenosis. POSTERIOR CIRCULATION: The distal vertebral arteries are patent as is the basilar artery. No aneurysm . BRAIN: No gross enhancing lesions as visualized. The superior cerebral hemispheres are not included in the field of view. BONES: Intact as visualized. SINUSES: No fluid or mucosal thickening. OTHER: No other significant finding. IMPRESSION: NO CTA EVIDENCE OF STENOSIS OR ANEURYSM OF THE [place]. TECHNICAL DOCUMENTATION: JOB ID: [id number] Quality ID # [id number]: Final reports with documentation of one or more dose reduction techniques (e.g., Au tomated exposure control, adjustment of the mA and/or kV according to patient size, use of iterative reconstruction technique) 2010 [employer]- All Rights Reserved Reading location - IP/workstation name: [email or web address]
[2018-11-19 12:39] LABS: ALANINE AMINOTRANSFERASE 25 U/L (21-72); ALBUMIN 3.1 g/dL (3.5-5.0); ALKALINE PHOSPHATASE 88 U/L (38-126); ANION GAP 10 (5-19); ASPARTATE AMINO TRANSFERASE 13 U/L (17-59); BILIRUBIN,DIRECT 0.2 mg/dL (0.0-0.4); BILIRUBIN,TOTAL 0.8 mg/dL (0.2-1.3); BLOOD UREA NITROGEN 17 mg/dL (7-20); CALCIUM 8.2 mg/dL (8.4-10.2); CARBON DIOXIDE 27 mmol/L (22-30); CHLORIDE 103 mmol/L (98-107); CREATINE KINASE 65 U/L (55-170); GLUCOSE 184 mg/dL (75-110); POTASSIUM 3.1 mmol/L (3.6-5.0); SODIUM 139.8 mmol/L (137-145)
[2018-11-19 12:51] LABS: CREATINE KINASE MB 0.74 ng/mL (<4.55)
[2018-11-19 12:56] LABS: TROPONIN I 0.045 ng/mL
[2018-11-19] MEDS ORDERED: MAGNESIUM HYDROXIDE SUSP 30 ML UDCUP PO PRN (13:24)
[2018-11-19] MEDS ORDERED: DOCUSATE SODIUM 100 MG CAPSULE PO PRN (13:24)
[2018-11-19] MEDS ORDERED: ONDANSETRON HCL INJ/PF 4 MG/2 ML SDV IV PRN (13:24)
[2018-11-19] MEDS ORDERED: DEXTROSE 50%-WATER 25 GM/50 ML DISP.SYRIN IV PRN ×2 (13:30)
[2018-11-19] MEDS ORDERED: DEXTROSE 40% GEL 15 GM TUBE PO PRN ×2 (13:30)
[2018-11-19] MEDS ORDERED: GLUCAGON,HUMAN RECOMB 1 MG INJ IM PRN (13:30)
[2018-11-19] MEDS ORDERED: NICOTINE 21 MG/24 HR PATCH.TD24 TD SCH (15:00)
[2018-11-19] MEDS: HEPARIN SOD (PORCINE) 5,000 UNIT/ML 1 ML SYRINGE SUBCUT SCH ×2 (15:03→21:08)
[2018-11-19] MEDS: ASPIRIN 81 MG TABLET, ENT COATED PO SCH (15:03)
[2018-11-19] MEDS: POTASSI CL 20 MEQ/50 ML RIDER 20 MEQ/50 ML RTUPB IV SCH ×2 (15:05→17:18)
[2018-11-19] MEDS: INSULIN LISPRO 100 UNIT/ML 3 ML VIAL SUBCUT SCH ×2 (17:18→21:07)
[2018-11-19] MEDS ORDERED: ENALAPRILAT DIHYDRATE INJ/PF 2.5 MG/2 ML SDV IV PRN (17:36)
--- NOTE | 2018-11-19 17:44 | EKG REPORT ---
SEVERITY:- ABNORMAL ECG - SINUS RHYTHM PROBABLE LEFT ATRIAL ABNORMALITY NONSPECIFIC T ABNORMALITIES, LATERAL LEADS : Confirmed by: Sondra Smith MD 19-Nov-2018 17:44:03
--- NOTE | 2018-11-19 17:45 | PDOC H&P ---
History of Present Illness Admission Date/PCP: 11/19/18 12:40 Patient complains of: right side weakness History of Present Illness: WHITNEY HENRY is a 48 year old male with a past medical history of hypertension, hyperlipidemia, DM 2, seizures, CHF, medical noncompliance, previous CVA with right-sided deficits, and tobacco dependence who presented to the emergency department today with a complaint of worsened slurred speech and right-sided weakness from his baseline. He does admit that he has been intermittently compliant with metformin only over the last year but has not been taking any of his other recommended medications including aspirin. Evaluation in the emergency department was remarkable only for hypokalemia (K3.1; has been replaced by ED provider) and hyperglycemia. Head CT, head and neck CTA, and EKG are all benign. He is referred to the hospitalist service for admission and management of the above-stated complaints. Past Medical History Cardiac Medical History: Reports: Congestive Heart Failure, Hyperlipidema, Hypertension Pulmonary Medical History: Reports: None EENT Medical History: Reports: None Neurological Medical History: Reports: Ischemic CVA, Seizures Endocrine Medical History: Reports: Diabetes Mellitus Type 2 Renal/ Medical History: Reports: None Malignancy Medical History: Reports: None GI Medical History: Reports: None Musculoskeltal Medical History: Reports: Arthritis, Gout Skin Medical History: Reports: None Psychiatric Medical History: Reports: Depression, Tobacco Dependency Traumatic Medical History: Reports: None Hematology: Reports: None Infectious Medical History: Reports: None Past Surgical History Past Surgical History: Reports: None Social History Information Source: Patient Lives with: Family Smoking Status: Current Every Day Smoker Cigarettes Packs Per Day: 1 Number of Years Smokin Frequency of Alcohol Use: None Hx Recreational Drug Use: No Drugs: None Hx Prescription Drug Abuse: No Family History Family History: CAD, CVA, DM Parental Family History Reviewed: Yes Children Family History Reviewed: Yes Sibling(s) Family History Reviewed.: Yes Medication/Allergy Home Medications: Colchicine [Colchicine 0.6 mg Tablet] 0.6 mg PO DAILYP PRN 11/19/18 Metformin HCl [Glucophage 500 mg Tablet] 500 mg PO BID 11/19/18 Allergies/Adverse Reactions: lamotrigine [From Lamictal] Allergy (Verified 10/15/18 14:07) levetiracetam [From Keppra] Allergy (Verified 10/15/18 14:07) phenytoin [From Dilantin] Allergy (Verified 10/15/18 14:07) tramadol Allergy (Verified 10/15/18 14:07) Review of Systems Constitutional: ABSENT: chills, fever(s), headache(s), weight gain, weight loss Eyes: ABSENT: visual disturbances Ears: ABSENT: hearing changes Cardiovascular: ABSENT: chest pain, dyspnea on exertion, edema, orthropnea, palpitations Respiratory: ABSENT: cough, hemoptysis Gastrointestinal: ABSENT: abdominal pain, constipation, diarrhea, hematemesis, hematochezia, nausea, vomiting Genitourinary: ABSENT: dysuria, hematuria Musculoskeletal: ABSENT: joint swelling Integumentary: ABSENT: rash, wounds Neurological: PRESENT: as per HPI Psychiatric: ABSENT: anxiety, depression, homidical ideation, suicidal ideation Endocrine: ABSENT: cold intolerance, heat intolerance, polydipsia, polyuria Hematologic/Lymphatic: ABSENT: easy bleeding, easy bruising Physical Exam Vital Signs: Temp Pulse Resp BP Pulse Ox 97.6 F 93 18 153/93 H 97 11/19/18 16:19 11/19/18 16:19 11/19/18 16:19 11/19/18 16:19 11/19/18 16:19 Intake & Output 11/18/18 11/19/18 11/20/18 06:59 06:59 06:59 Intake Total 50 Balance 50 Weight 81.647 kg General appearance: PRESENT: no acute distress, cooperative - Pleasant, well- developed, well-nourished - Overweight Head exam: PRESENT: atraumatic, normocephalic Eye exam: PRESENT: conjunctiva pink, EOMI, PERRLA. ABSENT: scleral icterus Ear exam: PRESENT: normal external ear exam Mouth exam: PRESENT: moist, tongue midline Neck exam: ABSENT: carotid bruit, JVD, lymphadenopathy, thyromegaly Respiratory exam: PRESENT: clear to auscultation peewee, symmetrical, unlabored. ABSENT: rales, rhonchi, wheezes Cardiovascular exam: PRESENT: RRR, +S1, +S2. ABSENT: diastolic murmur, rubs, systolic murmur Pulses: PRESENT: normal dorsalis pedis pul Vascular exam: PRESENT: normal capillary refill GI/Abdominal exam: PRESENT: normal bowel sounds, soft. ABSENT: distended, guarding, mass, organolmegaly, rebound, tenderness Rectal exam: PRESENT: deferred Extremities exam: PRESENT: full ROM - Moves all extremities equally. ABSENT: calf tenderness, clubbing, pedal edema Musculoskeletal exam: PRESENT: ambulatory Neurological exam: PRESENT: alert, awake, oriented to person, oriented to place, oriented to time, oriented to situation, other - Left-sided facial droop, slurred speech, right-sided weakness; RUE 4/5, LUE 5/5. RLE 3/5, LLE 5/5. ABSENT: motor sensory deficit Psychiatric exam: PRESENT: appropriate affect, normal mood. ABSENT: homicidal ideation, suicidal ideation Skin exam: PRESENT: dry, intact, warm. ABSENT: cyanosis, rash Results Laboratory Results: 11/19/18 12:05 11/19/18 12:05 11/19/18 11/19/18 12:05 12:05 WBC 8.7 RBC 4.80 Hgb 13.4 L Hct 38.3 MCV 80 MCH 27.8 MCHC 34.9 RDW 13.2 Plt Count 182 Seg Neutrophils % 70.7 Lymphocytes % 21.8 Monocytes % 5.7 Eosinophils % 1.6 Basophils % 0.2 Absolute Neutrophils 6.2 Absolute Lymphocytes 1.9 Absolute Monocytes 0.5 Absolute Eosinophils 0.1 Absolute Basophils 0.0 Sodium 139.8 Potassium 3.1 L Chloride 103 Carbon Dioxide 27 Anion Gap 10 BUN 17 Creatinine 0.85 Est GFR ( Amer) > 60 Est GFR (Non-Af Amer) > 60 Glucose 184 H Calcium 8.2 L Total Bilirubin 0.8 AST 13 L ALT 25 Alkaline Phosphatase 88 Total Protein 6.0 L Albumin 3.1 L 11/19/18 11/19/18 12:05 12:05 Creatine Kinase 65 CK-MB (CK-2) 0.74 Troponin I 0.045 Impressions: Head CT 11/19/18 11:42 IMPRESSION: NORMAL BRAIN CT WITHOUT CONTRAST. EVIDENCE OF ACUTE STROKE: NO. Head CTA 11/19/18 11:42 IMPRESSION: NO CTA EVIDENCE OF STENOSIS OR ANEURYSM OF THE [place]. Neck CTA 11/19/18 11:42 IMPRESSION: NORMAL CTA OF THE EXTRA-CRANIAL CAROTID AND VERTEBRAL ARTERIES. Assessment and Plan - Diagnosis (1) CVA (cerebral vascular accident) Qualifiers: CVA mechanism: other Qualified Code(s): I63.89 - Other cerebral infarction Is this a current diagnosis for this admission?: Yes Plan: Patient with history of CVA with residual right-sided weakness. Presented with worsened slurred speech and right-sided weakness this morning. Unfortunately, the patient has been noncompliant with his medication regiment since his review of stroke due to financial restraints (intermittently on metformin for management of diabetes mellitus, but has not been managing his blood pressure, hyperlipidemia, utilizing daily aspirin therapy, and continues to smoke). CT of the head is normal; no acute CVA. Neck and head CTA are benign. Head MRI is pending. EKG demonstrates normal sinus rhythm; no history of PAF. Echocardiogram pending Patient is admitted to [facility] on continuous cardiac telemetry. Lipid panel, A1c, UDS are pending. Start daily aspirin. Start high-dose statin. Permissive hypertension; Vasotec for blood pressure control. PT/ST are consulted. Discharge planning is consulted. Cardiac diet. (2) Hyperlipidemia Is this a current diagnosis for this admission?: Yes Plan: Patient is placed on a cardiac diet. High-dose statin. Lipid panel with a.m. blood work (3) DM type 2 (diabetes mellitus, type 2) Qualifiers: Diabetes mellitus nursing home insulin use: without pre press manager use Diabetes mellitus complication status: with hyperglycemia Qualified Code(s): E11.65 - Type 2 diabetes mellitus with hyperglycemia Is this a current diagnosis for this admission?: Yes Plan: Patient is placed on a consistent carb/cardiac diet. Accu-Cheks before meals and at bedtime with Humalog for sliding scale coverage. Home dose metformin is held. Registered dietitian and community health educator consulted. Hemoglobin A1c with a.m. lab work. (4) HTN (hypertension) Is this a current diagnosis for this admission?: Yes Plan: Patient endorses a history of hypertension; he is not on medications at home at this time due to financial restraints/noncompliance. Blood pressures on admission were 155/105 He is placed on a cardiac diet. Permissive hypertension x24 hours. IV Vasotec as needed for blood pressure control; SBP> 180, DBP>90 Start reduction tomorrow w/ oral antihypertensives. (5) Tobacco dependence Is this a current diagnosis for this admission?: Yes Plan: Smoking cessation is encouraged. Nicotine replacement therapies are provided. (6) CHF (congestive heart failure) Qualifiers: Heart failure type: systolic Heart failure chronicity: chronic Qualified Code(s): I50.22 - Chronic systolic (congestive) heart failure Is this a current diagnosis for this admission?: Yes Plan: Patient endorses history of systolic CHF. We will obtain echocardiogram. Cardiac diet Daily aspirin and statin therapy. Daily weights. We will need to start MARGARITO and beta shay prior to discharge. - Time Time Spent with patient: 35 or more minutes Smoking Cessation Education: 3 to 10 minutes Medications reviewed and adjusted accordingly: Yes Anticipated discharge: Home Within: within 24 hours
[2018-11-19] MEDS: NICOTINE 21 MG/24 HR PATCH.TD24 TD SCH ×2 (20:29→20:32)
[2018-11-19] MEDS ORDERED: INDOMETHACIN 25 MG CAPSULE PO PRN (20:34)
[2018-11-19] MEDS: FAMOTIDINE 20 MG TABLET PO SCH (21:07)
[2018-11-19] MEDS: ATORVASTATIN CALCIUM 80 MG TABLET PO SCH (21:07)
--- NOTE | 2018-11-19 21:37 | XCELERA REPORT ---
[address] [address] Transthoracic Echocardiogram Report Name: WHITNEY HENRY Age: 48 yrs Gender: Male : 1970 Patient Status: Inpatient Patient Location: [address] [place], [place] [address] Study Date: 11/19/2018 07:36 PM Height: 68 in Weight: 180 lb BSA: 2.0 m2 Procedure: A two-dimensional transthoracic echocardiogram with color flow and Doppler was performed. Study Quality: Fair. Reason For Study: Hypertension, systolic CHF, CVA History: CHF. Ordering Physician: CITLALI RENTERIA Performed By: Angie Garcia Interpretation Summary CHF The left ventricle is severely dilated. There is normal left ventricular wall thickness. LV EF is Less than 20% Left ventricular systolic function is severely reduced. There is severe global hypokinesis of the left ventricle. There is no thrombus. There is no ventricular septal defect visualized. The right ventricle is normal in size and function. The right atrium is normal. The left atrial size is normal. The interatrial septum is intact with no evidence for an atrial septal defect. There is no Doppler evidence for an interatrial shunt There is no evidence of mitral valve prolapse. There is no vegetation seen on the mitral valve. There is no mitral valve stenosis. There is a mild amount of mitral regurgitation There is no aortic valvular vegetation. There is no aortic valve stenosis There is no LVOT obstruction. No aortic regurgitation is present. There is no tricuspid stenosis. There is a trace to mild amount of tricuspid regurgitation There is mild pulmonary hypertension by echo RVSP is 34 to 39 mm of HG ,with RA mean of 5 to 10. There is no pulmonic valvular stenosis. There is a trace amount of pulmonic regurgitation The aortic root is normal size. The inferior vena cava appeared normal and decreased > 50% with respiration (RAP 5-10 mmHg) There is no pericardial effusion. MMode/2D Measurements & Calculations RVDd: 2.3 cm LVIDd: 6.8 cm FS: 8.1 % Ao root diam: 2.9 cm IVSd: 0.77 cm LVIDs: 6.3 cm EDV(Teich): LVPWd: 1.0 cm 241.8 ml Ao root area: ESV(Teich): 6.6 cm2 199.7 ml LA dimension: EF(Teich): 17.4 % 3.6 cm LVLd ap4: 7.3 cm SV(MOD-sp4): EDV(MOD-sp4): 38.0 ml 118.0 ml LVLs ap4: 6.8 cm ESV(MOD-sp4): 80.0 ml EF(MOD-sp4): 32.2 % Doppler Measurements & Calculations MV E max lavonne: MV P1/2t max [place]onne: Ao V2 max: LV V1 max P.8 cm/sec 99.9 cm/sec 99.0 cm/sec 3.5 mmHg MV A max [place]: MV P1/2t: 46.4 msec Ao max PG: LV V1 max: 70.6 cm/sec MVA(P1/2t): 4.7 cm2 3.9 mmHg 93.3 cm/sec MV E/A: 1.3 MV dec slope: 630.5 cm/sec2 MV dec time: 0.13 sec PA V2 max: PI end-d lavonne: TR max lavonne: MV P1/2t-pr_phl: 76.0 cm/sec 116.1 cm/sec 266.0 cm/sec 46.4 msec PA max PG: TR max P.3 mmHg 28.3 mmHg Left Ventricle The left ventricle is severely dilated. There is normal left ventricular wall thickness. LV EF is Less than 20%. Left ventricular systolic function is severely reduced. There is severe global hypokinesis of the left ventricle. There is no thrombus. There is no ventricular septal defect visualized. Right Ventricle The right ventricle is normal in size and function. Atria The right atrium is normal. The left atrial size is normal. The interatrial septum is intact with no evidence for an atrial septal defect. There is no Doppler evidence for an interatrial shunt. Mitral Valve There is no evidence of mitral valve prolapse. There is no vegetation seen on the mitral valve. There is no mitral valve stenosis. There is a mild amount of mitral regurgitation. Aortic Valve There is no aortic valvular vegetation. There is no aortic valve stenosis. There is no LVOT obstruction. No aortic regurgitation is present. Tricuspid Valve There is no tricuspid stenosis. There is a trace to mild amount of tricuspid regurgitation. There is mild pulmonary hypertension by echo. RVSP is 34 to 39 mm of HG ,with RA mean of 5 to 10. Pulmonic Valve There is no pulmonic valvular stenosis. There is a trace amount of pulmonic regurgitation. Great Vessels The aortic root is normal size. The inferior vena cava appeared normal and decreased > 50% with respiration (RAP 5-10 mmHg). Effusions There is no pericardial effusion. : CITLALI RENTERIA Lakshmi
--- NOTE | 2018-11-19 22:19 | RADIOLOGY REPORT (SQ) ---
MR BRAIN WITHOUT IV CONTRAST HISTORY: Right-sided weakness. COMPARISON: CT scan from earlier the same day. TECHNIQUE: Multisequence, multiplanar MR imaging of the brain was performed without the administration of intravenous gadolinium. FINDINGS: The ventricles and sulci are normal in size. There is no acute infarction, intracranial hemorrhage, extra-axial fluid collection, or mass. The brainstem, posterior fossa, and cervicomedullary junction are preserved. The intravascular flow voids are preserved. The orbits are unremarkable. No abnormality of the skull base or calvarium is seen. The paranasal sinuses and mastoid air cells are clear. IMPRESSION: No acute intracranial findings.
[2018-11-20] MEDS: ACETAMINOPHEN 325 MG TABLET PO PRN ×2 (03:57→08:33)
[2018-11-20] MEDS: HEPARIN SOD (PORCINE) 5,000 UNIT/ML 1 ML SYRINGE SUBCUT SCH ×3 (05:29→22:01)
[2018-11-20 06:22] LABS: HEMATOCRIT 39.7 % (37.9-51.0); MEAN CORPUSCULAR HEMOGLOBIN 28.1 pg (27.0-33.4); MEAN CORPUSCULAR HGB CONC 35.2 g/dL (32.0-36.0); MEAN CORPUSCULAR VOLUME 80 fl (80-97); PLATELET COUNT 188 10^3/uL (150-450); RED BLOOD COUNT 4.97 10^6/uL (4.35-5.55); RED CELL DISTRIBUTION WIDTH 13.3 % (11.5-14.0); WHITE BLOOD COUNT 9.3 10^3/uL (4.0-10.5)
[2018-11-20 06:43] LABS: ANION GAP 10 (5-19); BLOOD UREA NITROGEN 17 mg/dL (7-20); CALCIUM 8.5 mg/dL (8.4-10.2); CARBON DIOXIDE 26 mmol/L (22-30); CHLORIDE 108 mmol/L (98-107); CHOLESTEROL 123.52 mg/dL (0-200); GLUCOSE 154 mg/dL (75-110); POTASSIUM 3.2 mmol/L (3.6-5.0); SODIUM 143.6 mmol/L (137-145); TRIGLYCERIDES 130 mg/dL (<150)
[2018-11-20 06:55] LABS: DIRECT LDL 85 mg/dL (<100)
[2018-11-20] MEDS: INSULIN LISPRO 100 UNIT/ML 3 ML VIAL SUBCUT SCH ×4 (08:23→22:02)
[2018-11-20] MEDS ORDERED: POTASSIUM CHLORIDE 10 MEQ CAPSULE.ER PO ONE (09:00)
--- NOTE | 2018-11-20 09:28 | EKG REPORT ---
SEVERITY:- BORDERLINE ECG - SINUS RHYTHM PROBABLE LEFT ATRIAL ABNORMALITY BORDERLINE T WAVE ABNORMALITIES : Confirmed by: Sondra Smith MD 20-Nov-2018 09:27:42
[2018-11-20] MEDS: ASPIRIN 81 MG TABLET, ENT COATED PO SCH (10:20)
[2018-11-20] MEDS: NICOTINE 21 MG/24 HR PATCH.TD24 TD SCH (10:21)
[2018-11-20] MEDS: FAMOTIDINE 20 MG TABLET PO SCH ×2 (10:21→22:02)
[2018-11-20] MEDS ORDERED: ALPRAZOLAM 0.25 MG TABLET PO PRN (12:04)
[2018-11-20] MEDS ORDERED: ALPRAZOLAM 0.25 MG TABLET PO ONE (12:04)
--- NOTE | 2018-11-20 17:32 | PDOC PROGRESS REPORT ---
Subjective Progress Note for:: 11/20/18 Subjective:: WHITNEY HENRY is a 48 year old male with a past medical history of hypertension, hyperlipidemia, DM 2, seizures, CHF, medical noncompliance, previous CVA with right-sided deficits, and tobacco dependence who was admitted 11/19/2018 for TIA/CVA rule out. Fortunately MRI was negative for acute CVA and his symptoms resolved overnight, however, echocardiogram revealed LVEF <20%. Patient was seen on afternoon rounds with family members present. He was noted to be ambulating in the hallways independently on room air earlier without difficulty. He is noted to be alert and oriented, clear speech, full strength to all extremities; reports that his symptoms have entirely abated. Patient did meet with cardiology this morning; they have recommended and arranged for him to undergo cardiac catheterization tomorrow. He is very nervous about the procedure and has many questions and concerns about the risks and benefits of cardiac cath. Otherwise he has no questions or concerns. He denies fever, chills, dizziness, headaches, blurred vision, focal deficits, chest pain, palpitations, dyspnea, orthopnea, dependent edema, abdominal pain, nausea vomiting and diarrhea. No concerns per nursing. Reason For Visit: TIA/CVA Physical Exam Vital Signs: Temp Pulse Resp BP Pulse Ox 97.9 F 87 16 143/98 H 100 11/20/18 11:40 11/20/18 14:00 11/20/18 12:00 11/20/18 12:00 11/20/18 12:00 Intake & Output 11/19/18 11/20/18 11/21/18 06:59 06:59 06:59 Intake Total 1192 Balance 1192 Weight 87.7 kg General appearance: PRESENT: no acute distress, cooperative - Pleasant, well- developed, well-nourished - Overweight Head exam: PRESENT: atraumatic, normocephalic Eye exam: PRESENT: conjunctiva pink, EOMI, PERRLA. ABSENT: scleral icterus Ear exam: PRESENT: normal external ear exam Mouth exam: PRESENT: moist, tongue midline Neck exam: ABSENT: carotid bruit, JVD, lymphadenopathy, thyromegaly Respiratory exam: PRESENT: clear to auscultation peewee, symmetrical, unlabored. ABSENT: rales, rhonchi, wheezes Cardiovascular exam: PRESENT: RRR, +S1, +S2. ABSENT: diastolic murmur, rubs, systolic murmur Pulses: PRESENT: normal dorsalis pedis pul Vascular exam: PRESENT: normal capillary refill GI/Abdominal exam: PRESENT: normal bowel sounds, soft. ABSENT: distended, gu arding, mass, organolmegaly, rebound, tenderness Rectal exam: PRESENT: deferred Extremities exam: PRESENT: full ROM. ABSENT: calf tenderness, clubbing, pedal edema Musculoskeletal exam: PRESENT: ambulatory Neurological exam: PRESENT: alert, awake, oriented to person, oriented to place, oriented to time, oriented to situation, CN II-XII grossly intact, other - No facial asymmetry noted; no focal deficits. Speech is clear.. ABSENT: motor sensory deficit Psychiatric exam: PRESENT: appropriate affect, normal mood. ABSENT: homicidal ideation, suicidal ideation Skin exam: PRESENT: dry, intact, warm. ABSENT: cyanosis, rash Results Laboratory Results: 11/20/18 05:55 11/20/18 05:55 11/20/18 11/20/18 05:55 05:55 WBC 9.3 RBC 4.97 Hgb 14.0 Hct 39.7 MCV 80 MCH 28.1 MCHC 35.2 RDW 13.3 Plt Count 188 Sodium 143.6 Potassium 3.2 L Chloride 108 H Carbon Dioxide 26 Anion Gap 10 BUN 17 Creatinine 0.76 Est GFR ( Amer) > 60 Est GFR (Non-Af Amer) > 60 Glucose 154 H Calcium 8.5 Triglycerides 130 Cholesterol 123.52 LDL Cholesterol Direct 85 VLDL Cholesterol 26.0 HDL Cholesterol 31 L 11/19/18 11/19/18 12:05 12:05 Creatine Kinase 65 CK-MB (CK-2) 0.74 Troponin I 0.045 Impressions: Head MRI 11/19/18 00:00 IMPRESSION: No acute intracranial findings. Head CT 11/19/18 11:42 IMPRESSION: NORMAL BRAIN CT WITHOUT CONTRAST. EVIDENCE OF ACUTE STROKE: NO. Head CTA 11/19/18 11:42 IMPRESSION: NO CTA EVIDENCE OF STENOSIS OR ANEURYSM OF THE [place]. Neck CTA 11/19/18 11:42 IMPRESSION: NORMAL CTA OF THE EXTRA-CRANIAL CAROTID AND VERTEBRAL ARTERIES. Assessment and Plan - Diagnosis (1) CVA (cerebral vascular accident) Qualifiers: CVA mechanism: other Qualified Code(s): I63.89 - Other cerebral infarction Is this a current diagnosis for this admission?: Yes Plan: Acute CVA is ruled out. Patient with history of CVA with residual right-sided weakness. Presented with worsened slurred speech and right-sided weakness this morning. Unfortunately, the patient has been noncompliant with his medication regiment since his review of stroke due to financial restraints (intermittently on metformin for management of diabetes mellitus, but has not been managing his blood pressure, hyperlipidemia, utilizing daily aspirin therapy, and continues to smoke). CT of the head is normal; no acute CVA. Neck and head CTA are benign. Head MRI is negative for acute CVA. EKG demonstrates normal sinus rhythm; no history of PAF. Echocardiogram demonstrated LVEF 20%. Lipid panel showed HDL 31, otherwise normal. A1c 9.6% Patient is admitted to [facility] on continuous cardiac telemetry. Continue daily aspirin and high-dose statin therapy. Vasotec for blood pressure control; SBP>180, DBP>90 PT/ST are consulted. Discharge planning is consulted. Cardiac diet. (2) Hyperlipidemia Is this a current diagnosis for this admission?: Yes Plan: HDL 31, LDL 85, triglycerides 130, total cholesterol 123 Patient is placed on a cardiac diet. High-dose statin. (3) DM type 2 (diabetes mellitus, type 2) Qualifiers: Diabetes mellitus mcc insulin use: without mcc use Diabetes mellitus complication status: with hyperglycemia Qualified Code(s): E11.65 - Type 2 diabetes mellitus with hyperglycemia Is this a current diagnosis for this admission?: Yes Plan: A1c 9.6%. Patient is placed on a consistent carb/cardiac diet. Accu-Cheks before meals and at bedtime with Humalog for sliding scale coverage. Home dose metformin is held. Registered dietitian and credit analysis manager consulted. (4) HTN (hypertension) Is this a current diagnosis for this admission?: Yes Plan: Patient endorses a history of hypertension; he is not on medications at home at this time due to financial restraints/noncompliance. He is placed on a cardiac diet. IV Vasotec as needed for blood pressure control; SBP> 180, DBP>90 Cardiology is consulted; will defer hypertension management to their expertise as he is being worked up for systolic CHF. Plans for cardiac catheterization tomorrow. (5) Tobacco dependence Is this a current diagnosis for this admission?: Yes Plan: Smoking cessation is encouraged. Nicotine replacement therapies are provided. (6) CHF (congestive heart failure) Qualifiers: Heart failure type: systolic Heart failure chronicity: chronic Qualified Code(s): I50.22 - Chronic systolic (congestive) heart failure Is this a current diagnosis for this admission?: Yes Plan: Patient endorses history of systolic CHF. Echocardiogram demonstrates LVEF <20%, global hypokinesis of the left ventricle, mild mitral regurgitation, mild tricuspid regurgitation, mild pulmonary hypertension Cardiac diet Daily aspirin and statin therapy. Daily weights. Cardiology is consulted; will defer medication recommendations to their expertise. Planning for cardiac catheterization tomorrow. - Time Time Spent with patient: 35 or more minutes Medications reviewed and adjusted accordingly: Yes Anticipated discharge: Home - Inpatient Certification Based on my medical assessment, after consideration of the patient's comorbidities, presenting symptoms, or acuity I expect that the services needed warrant INPATIENT care.: Yes I certify that my determination is in accordance with my understanding of Medicare's requirements for reasonable and necessary INPATIENT services [42 CFR 412.3e].: Yes Medical Necessity: Significant Comorbidiites Make Outpatient Treatment Too Risky, Need Close Monitoring Due to Risk of Patient Decompensation, Need For Continuous Telemetry Monitoring, Need for Surgery, Risk of Diagnosis Which Will Require Inpatient Eval/Care/Monitoring
--- NOTE | 2018-11-20 17:38 | ADVANCED CARE ---
Attendance: The patient, his fiance (Christa Gurrola), son and [id number]. Resuscitation Status: Full Code Discussion: Discussed cardiology's recommendations for the patient to undergo cardiac catheterization. We reviewed the MOST form in detail. Patient designates his fiance, Christa Gurrola, as his surrogate decision maker. He has determined that he wishes to be a FULL CODE, with aggressive interventions as indicated to include CPR, intubation (for no more than "several weeks"), ICU admission, pressor support, antibiotics, IV fluids, and artificial means of nutrition (for up to 6 months). Family is in agreement and in support of his decisions. Care Planning Goals: Undergo cardiac catheterization as recommended by cardiology. FULL CODE with full scope of interventions as indicated for defined periods of time. Patient discussed with family members desire to not remain on "life support more than several weeks" or to be "kept alive by fake food [artificial means of nutrition]" for more than 6 months. Document(s) Completed: MOST form Time Spent: 45 min
[2018-11-20] MEDS: CARVEDILOL 12.5 MG TABLET PO SCH (18:25)
[2018-11-20 22:00] LABS: APPEARANCE,URINE CLEAR; BILIRUBIN,URINE NEGATIVE (NEGATIVE); COLOR,URINE YELLOW; GLUCOSE, URINE 150 mg/dL (NEGATIVE); KETONES,URINE NEGATIVE (NEGATIVE); LEUKOCYTE ESTERASE,URINE NEGATIVE (NEGATIVE); NITRITE,URINE NEGATIVE (NEGATIVE); PROTEIN,URINE NEGATIVE (NEGATIVE); URINE SPECIFIC GRAVITY 1.029
[2018-11-20] MEDS: ATORVASTATIN CALCIUM 80 MG TABLET PO SCH (22:02)
[2018-11-20] MEDS: LISINOPRIL 5 MG TABLET PO SCH (22:02)
[2018-11-20 22:23] LABS: URINE AMPHETAMINES SCREEN NEGATIVE; URINE BARBITURATES SCREEN NEGATIVE; URINE BENZODIAZEPINES SCREEN NEGATIVE; URINE COCAINE SCREEN NEGATIVE; URINE MARIJUANA (THC) SCREEN NEGATIVE; URINE METHADONE SCREEN NEGATIVE; URINE PHENCYCLIDINE SCREEN NEGATIVE
--- NOTE | 2018-11-20 22:29 | PDOC CONSULTATION ---
Consultation-Blank Consultation: CARDIOLOGY CONSULTATION BY Dr.Lakshmi Ryan on 11/21/2018 patient seen on 11/20/2018 at 12 noon. 60 minutes spent with this patient with than 50% of time spent in direct patient care due to patient seen at 8:30 PM and cardiac catheterization consult obtained. An extra 30 minutes spent on this. REASON FOR CONSULTATION: Patient with cardiomyopathy with LV ejection fraction of 20%. Consult requesting provider: Ms. Johana Grove, nurse practitioner, [facility]. HISTORY OF PRESENT ILLNESS: Patient is a 48-year-old male with known history of hypertension, not on any medications, history of diabetes mellitus, and (history of seizure disorder, and prior history of CVA with residual right- sided weakness was admitted for symptoms of right facial droop and slightly increased weakness in the right lower extremity. Hence it was thought to be a TIA. The symptoms resolved and the patient is back to baseline with mild residual right-sided weakness. His echocardiogram done to assess for presence of clots showed the patient's LV function was severely depressed and there was evidence of cardia myopathy. There is global diffuse hypokinesis. The patient denied any chest pain or discomfort. There is no palpitations. There is no PND orthopnea. The patient states he can walk a mile without any problems at the good pace. He denies any syncope. No recent seizures. There is no leg edema. There is no palpitations or any arrhythmias noticed during the stay in the [facility]. The patient has no anginal symptoms. Denies any past history of myocardial infarction. PAST MEDICAL HISTORY: Is positive for hypertension and diabetes mellitus. Patient not on good medication for these due to his lack of insurance and financial constraints. 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 He also has a history of seizure disorder. There is no history of coronary artery disease, or CONSTITUTIONAL: Denies any fever chills or rigors. The patient had transient weakness when he had the right facial droop and right- sided slightly increased transient weakness which is resolved. HEAD: Denies any history of head injury or headaches. EYES: No history of amblyopia diplopia. No history of amaurosis fugax. NOSE: No history of hayfeverMI or anginal symptoms. The patient states a year ago so in [place] he was admitted to the hospital with congestive heart failure. At that time he was told that he needed a pacemaker/AICD, but the patient did not follow through with this due to lack of insurance. There is no history of leg edema. No history of PND orthopnea. There is no history of asthma or COPD. There is no history of sleep apnea. No history of chronic kidney disease. No history of thyroid disease disease. Records from [place] have been requested. PAST SURGICAL HISTORY: None: SOCIAL HISTORY: The patient does smoke. There is no history of EtOH abuse. The patient denies any taking alcohol in excess at any time in his lifetime. Family history is positive for CAD, CVA and diabetes mellitus. RESUSCITATION status: The patient is a full code. His is his healthcare surrogate decision maker. ALLERGIES he is allergic to Lamictal, Keppra, Dilantin, and tramadol. REVIEW SYSTEMS. CONSTITUTIONAL denies any fever chills or rigors. Had transient right-sided weakness but no generalized fatigue or weakness. HEAD: No history of headaches or head injury. EYES: No history of amblyopia diplopia no history of amaurosis fugax. NOSE: The patient has a history of hayfever. No history of nosebleeds. No history of nasal polyps. MOUTH: No history of altered taste sensation. No ulcers in the mouth. No bleeding from the gums. THROAT: No history of odynophagia or dysphagia. No history of recurrent sore throats. SKIN: No history of pruritus. No history of yellowish discoloration of the skin. No history of eczema or psoriasis. NECK: No history of neck swelling or neck pain. LUNGS: No history of asthma or COPD. No history of cough or wheezing no symptoms of upper or lower respiratory tract infection. No history of sleep apnea. No history of pulmonary embolism. No pleuritic chest pain. No hemoptysis. CARDIAC: History of hypertension untreated due to financial constraints constraints that made him not be able to buy medication. Prior history of congestive heart failure. No history of coronary artery disease CA or anginal symptoms. No recent symptoms of leg edema. No history of palpitations or syncope. No history of PND orthopnea. The patient's effort tolerance seems to be well preserved in spite of his low ejection fraction. He was told about a year ago that he had congestive heart failure and was told that he needed a pacemaker/AICD. And hence the patient does have a history of long- standing cardiomyopathy. No history of syncope. ENDOCRINE: History of diabetes mellitus type 2 [id number]. No history of thyroid disease. No polydipsia polyuria. No history of heat or cold intolerance. RENAL: No history of chronic kidney disease. No symptoms a UTI. No history of hematuria prior dysuria. No symptoms of enlarged prostate. GI: No history of GERD. No history of peptic ulcer disease. No history of GI bleed. No history of fatty food intolerance. No history of altered bowel movements. No history of hematochezia or hematemesis or melena. MUSCULOSKELETAL: Denies arthritis or collagen vascular disease. CHAIN OFFBEARER: Past history of CVA. Recent symptoms over the symptoms of mildly increased weakness on the right side of the body and right facial droop which resolved this is questionable TIA. No auras MRI and other work-up did not show a recurrent CVA. 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 VASCULAR: No history of calf or buttock claudication. No history of DVT. HEMATOLOGICAL: No history of bleeding diathesis. No history of clotting disorders. No history of anemia or hematological malignancies. PHYSICAL EXAMINATION: The patient is well-built and well-nourished in no acute distress he is well-groomed. Selected Entries 11/20/18 11:40 Temperature 97.9 F Temperature Oral Source Pulse Rate 87 Respiratory 16 Rate Blood Pressure 143/98 H Blood Pressure 113 Mean BP Location Left Arm BP Position Sitting O2 Sat by Pulse 100 Oximetry Oxygen Delivery Room Air Method HEAD: Is atraumatic normocephalic. EYES: Pupils equal round regular react to light accommodation. Extraocular movements are normal. There is no conjunctival pallor there is no scleral icterus. EARS: Tympanic membranes are intact. External auditory canals are clear. NOSE: There is no deviated nasal septum. There is no inflammation nasal mucous membrane. MOUTH: MUCOUS MEMBRANES OF THE MOUTH ARE MOIST. TONGUE IS MOIST THERE IS NO ULCERS THERE IS NO BLEEDING FROM THE GUMS. Throat: There is no redness of the oropharynx. There is no exudates. SKIN: There is no skin lesions or skin rashes. There is no petechia or ecchymosis. NECK: Is supple. There is no JVD. Carotids are equal there is no bruits. There is no lymphadenopathy. There is no goiter. There is no accessory muscle respiration use. There is no goiter. Trachea central. LUNGS: Is clear to auscultation and percussion without any rhonchi rales or wheezing. There is no chest wall tenderness. HEART: S1-S2 is heard. There is no S3 gallop there is no S4 gallop. There is systolic murmur mitral regurgitation and tricuspid regurgitation present. There is no rub. There is no aortic stenosis or aortic regurgitation murmur. ABDOMEN: Soft. Nontender. There is no hepatosplenomegaly. Bowel sounds are well heard. There is no tender areas of masses. EXTREMITIES: Femorals are well felt. There is no femoral bruits. Leg pulses are well felt. There is no DVT or cellulitis. There is no pedal edema. There is no cyanosis or clubbing. Capillary refill is normal. CHAIN OFFBEARER: The patient is conscious awake alert oriented x3 with mild right- sided weakness. PSYCHIATRIC: The patient judgment insight are intact his affect is normal. Current Medications Generic Name Dose Route Start Last Admin Trade Name Freq PRN Reason Stop Dose Admin Acetaminophen 650 mg 11/19/18 13:24 11/20/18 08:33 Tylenol 325 Mg Tablet PO 12/19/18 13:23 650 mg Q4HP PRN Administration Temp greater than 101F Alprazolam 0.25 mg 11/20/18 12:04 Xanax 0.25 Mg Tablet PO 11/27/18 12:03 Q8HP PRN ANXIETY Aspirin 81 mg 11/19/18 14:00 11/20/18 10:20 Ecotrin 81 Mg Ec Tablet PO 12/19/18 13:59 81 mg DAILY JADE Administration Atorvastatin Calcium 80 mg 11/19/18 22:00 11/20/18 22:02 Lipitor 80 Mg Tablet PO 12/19/18 21:59 80 mg QHS JADE Administration Carvedilol 12.5 mg 11/20/18 17:00 11/20/18 18:25 Coreg 12.5 Mg Tablet PO 12/20/18 16:59 12.5 mg Q12A JADE Administration Started by sd Dextrose 12.5 gm 11/19/18 13:30 Dextrose Inj 50% Syringe (25 Gm/50 Ml) IV 12/19/18 13:29 PRN PRN FOR BG 50-69 IN ALERT PATIENT Protocol Dextrose 25 gm 11/19/18 13:30 Dextrose Inj 50% Syringe (25 Gm/50 Ml) IV 12/19/18 13:29 PRN PRN PER PROTOCOL Protocol Docusate Sodium 100 mg 11/19/18 13:24 Colace 100 Mg Capsule PO 12/19/18 13:23 BIDP PRN FOR CONSTIPATION Enalaprilat 2.5 mg 11/19/18 17:36 Vasotec Inj/Pf 2.5 Mg/2 Ml Sdv IV 12/19/18 17:35 Q6HP PRN SBP>180, DBP>90 Famotidine 20 mg 11/19/18 22:00 11/20/18 22:02 Pepcid 20 Mg Tablet PO 12/19/18 21:59 20 mg Q12 JADE Administration Glucagon 1 mg 11/19/18 13:30 Glucagen Inj 1 Mg Vial IM 12/19/18 13:29 PRN PRN Evaluate for BG < 70 Protocol Glucose 15 gm 11/19/18 13:30 Glutose 40% Gel 15 Gm Tube PO 12/19/18 13:29 PRN PRN FOR BG 50-69 IN ALERT PATIENT Protocol Glucose 30 gm 11/19/18 13:30 Glutose 40% Gel 15 Gm Tube PO 12/19/18 13:29 PRN PRN FOR BG < 50 IN ALERT PATIENT Protocol Heparin Sodium (Porcine) 5,000 unit 11/19/18 14:00 11/20/18 22:01 Heparin Inj 5,000 Units/Ml 1 Ml Syringe SUBCUT 12/19/18 13:59 Not Given Q8 JADE Indomethacin 25 mg 11/19/18 20:34 11/19/18 23:51 Indocin 25 Mg Capsule PO 12/19/18 20:33 25 mg Q6HP PRN Administration FOR GOUT Insulin Human Lispro 0 - 12 unit 11/19/18 16:00 11/20/18 22:02 Humalog Insulin 100 Unit/1 Ml 3 Ml Vial SUBCUT 12/19/18 15:59 2 unit ACHS JADE Administration Protocol Lisinopril 5 mg 11/20/18 22:00 11/20/18 22:02 Prinivil 5 Mg Tablet PO 12/20/18 21:59 5 mg Q12 JADE Administration Started by me. Magnesium Hydroxide 30 ml 11/19/18 13:24 Milk Of Magnesia 30 Ml Udcup PO 12/19/18 13:23 HSP PRN FOR CONSTIPATION Nicotine 1 each 11/19/18 08:30 11/20/18 10:21 Nicoderm 21 Mg/24 Hr Transderm Patch TD 12/19/18 08:29 1 each DAILY JADE Administration Ondansetron HCl 8 mg 11/19/18 13:24 11/20/18 01:20 Zofran Inj/Pf 4 Mg/2 Ml Sdv IV 12/19/18 13:23 8 mg Q6HP PRN Administration FOR NAUSEA/VOMITING Sodium Chloride 2.5 ml 11/19/18 14:00 11/20/18 22:03 Saline Flush 2.5 Ml Monoject Prefil Syrin IV 12/19/18 13:59 2.5 ml Q8 JADE Administration Discontinued Medications Generic Name Dose Route Start Last Admin Trade Name Freq PRN Reason Stop Dose Admin Alprazolam 0.25 mg 11/20/18 12:04 11/20/18 14:12 Xanax 0.25 Mg Tablet PO 11/20/18 12:05 0.25 mg NOW ONE Administration Potassium Chloride/Water 20 meq in 50 mls @ 25 mls/hr 11/19/18 13:00 11/19/18 19:39 Potassium Chloride Naeem 20 Meq/50 Ml IV 11/19/18 16:59 Infused Q2H JADE Infusion Nicotine 1 each 11/19/18 15:00 11/19/18 15:17 Nicoderm 21 Mg/24 Hr Transderm Patch TD 12/19/18 14:59 Not Given DAILY JADE Potassium Chloride 40 meq 11/20/18 09:00 11/20/18 10:20 Klor-Con 10 Meq Capsule Er PO 11/20/18 09:01 40 meq NOW ONE Administration Colchicine [Colchicine 0.6 mg Tablet] 0.6 mg PO DAILYP PRN 11/19/18 Metformin HCl [Glucophage 500 mg Tablet] 500 mg PO BID 11/19/18 Labs- Entire Visit 11/19/18 11/19/18 11/19/18 12:05 12:05 12:05 WBC 8.7 RBC 4.80 Hgb 13.4 L Hct 38.3 MCV 80 MCH 27.8 MCHC 34.9 RDW 13.2 Plt Count 182 Seg Neutrophils % 70.7 Lymphocytes % 21.8 Monocytes % 5.7 Eosinophils % 1.6 Basophils % 0.2 Absolute Neutrophils 6.2 Absolute Lymphocytes 1.9 Absolute Monocytes 0.5 Absolute Eosinophils 0.1 Absolute Basophils 0.0 PT 13.9 INR 1.02 APTT 31.3 Sodium 139.8 Potassium 3.1 L Chloride 103 Carbon Dioxide 27 Anion Gap 10 BUN 17 Creatinine 0.85 Est GFR ( Amer) > 60 Est GFR (Non-Af Amer) > 60 Glucose 184 H POC Glucose Hemoglobin A1c % Calcium 8.2 L Total Bilirubin 0.8 Direct Bilirubin 0.2 Neonat Total Bilirubin Not Reportable Neonat Direct Bilirubin Not Reportable Neonat Indirect Bili Not Reportable AST 13 L ALT 25 Alkaline Phosphatase 88 Creatine Kinase 65 CK-MB (CK-2) Troponin I Total Protein 6.0 L Albumin 3.1 L Triglycerides Cholesterol LDL Cholesterol Direct VLDL Cholesterol HDL Cholesterol Urine Color Urine Appearance Urine pH Ur Specific [place] Urine Protein Urine Glucose (UA) Urine Ketones Urine Blood Urine Nitrite Urine Bilirubin Urine Urobilinogen Ur Leukocyte Esterase Urine WBC (Auto) Urine RBC (Auto) Urine Mucus (Auto) Urine Ascorbic Acid Urine Opiates Screen Urine Methadone Screen Ur Barbiturates Screen Ur Phencyclidine Scrn Ur Amphetamines Screen U Benzodiazepines Scrn Urine Cocaine Screen U Marijuana (THC) Screen 11/19/18 11/19/18 11/19/18 12:05 12:07 16:23 WBC RBC Hgb Hct MCV MCH MCHC RDW Plt Count Seg Neutrophils % Lymphocytes % Monocytes % Eosinophils % Basophils % Absolute Neutrophils Absolute Lymphocytes Absolute Monocytes Absolute Eosinophils Absolute Basophils PT INR APTT Sodium Potassium Chloride Carbon Dioxide Anion Gap BUN Creatinine Est GFR ( Amer) Est GFR (Non-Af Amer) Glucose POC Glucose 182 H 238 H Hemoglobin A1c % Calcium Total Bilirubin Direct Bilirubin Neonat Total Bilirubin Neonat Direct Bilirubin Neonat Indirect Bili AST ALT Alkaline Phosphatase Creatine Kinase CK-MB (CK-2) 0.74 Troponin I 0.045 Total Protein Albumin Triglycerides Cholesterol LDL Cholesterol Direct VLDL Cholesterol HDL Cholesterol Urine Color Urine Appearance Urine pH Ur Specific [place] Urine Protein Urine Glucose (UA) Urine Ketones Urine Blood Urine Nitrite Urine Bilirubin Urine Urobilinogen Ur Leukocyte Esterase Urine WBC (Auto) Urine RBC (Auto) Urine Mucus (Auto) Urine Ascorbic Acid Urine Opiates Screen Urine Methadone Screen Ur Barbiturates Screen Ur Phencyclidine Scrn Ur Amphetamines Screen U Benzodiazepines Scrn Urine Cocaine Screen U Marijuana (THC) Screen 11/19/18 11/20/18 11/20/18 21:06 01:13 05:55 WBC 9.3 RBC 4.97 Hgb 14.0 Hct 39.7 MCV 80 MCH 28.1 MCHC 35.2 RDW 13.3 Plt Count 188 Seg Neutrophils % Lymphocytes % Monocytes % Eosinophils % Basophils % Absolute Neutrophils Absolute Lymphocytes Absolute Monocytes Absolute Eosinophils Absolute Basophils PT INR APTT Sodium Potassium Chloride Carbon Dioxide Anion Gap BUN Creatinine Est GFR ( Amer) Est GFR (Non-Af Amer) Glucose POC Glucose 129 H 228 H Hemoglobin A1c % Calcium Total Bilirubin Direct Bilirubin Neonat Total Bilirubin Neonat Direct Bilirubin Neonat Indirect Bili AST ALT Alkaline Phosphatase Creatine Kinase CK-MB (CK-2) Troponin I Total Protein Albumin Triglycerides Cholesterol LDL Cholesterol Direct VLDL Cholesterol HDL Cholesterol Urine Color Urine Appearance Urine pH Ur Specific [place] Urine Protein Urine Glucose (UA) Urine Ketones Urine Blood Urine Nitrite Urine Bilirubin Urine Urobilinogen Ur Leukocyte Esterase Urine WBC (Auto) Urine RBC (Auto) Urine Mucus (Auto) Urine Ascorbic Acid Urine Opiates Screen Urine Methadone Screen Ur Barbiturates Screen Ur Phencyclidine Scrn Ur Amphetamines Screen U Benzodiazepines Scrn Urine Cocaine Screen U Marijuana (THC) Screen 11/20/18 11/20/18 11/20/18 05:55 05:55 07:59 WBC RBC Hgb Hct MCV MCH MCHC RDW Plt Count Seg Neutrophils % Lymphocytes % Monocytes % Eosinophils % Basophils % Absolute Neutrophils Absolute Lymphocytes Absolute Monocytes Absolute Eosinophils Absolute Basophils PT INR APTT Sodium 143.6 Potassium 3.2 L Chloride 108 H Carbon Dioxide 26 Anion Gap 10 BUN 17 Creatinine 0.76 Est GFR ( Amer) > 60 Est GFR (Non-Af Amer) > 60 Glucose 154 H POC Glucose 165 H Hemoglobin A1c % 9.6 H Calcium 8.5 Total Bilirubin Direct Bilirubin Neonat Total Bilirubin Neonat Direct Bilirubin Neonat Indirect Bili AST ALT Alkaline Phosphatase Creatine Kinase CK-MB (CK-2) Troponin I Total Protein Albumin Triglycerides 130 Cholesterol 123.52 LDL Cholesterol Direct 85 VLDL Cholesterol 26.0 HDL Cholesterol 31 L Urine Color Urine Appearance Urine pH Ur Specific [place] Urine Protein Urine Glucose (UA) Urine Ketones Urine Blood Urine Nitrite Urine Bilirubin Urine Urobilinogen Ur Leukocyte Esterase Urine WBC (Auto) Urine RBC (Auto) Urine Mucus (Auto) Urine Ascorbic Acid Urine Opiates Screen Urine Methadone Screen Ur Barbiturates Screen Ur Phencyclidine Scrn Ur Amphetamines Screen U Benzodiazepines Scrn Urine Cocaine Screen U Marijuana (THC) Screen 11/20/18 11/20/18 11/20/18 11:42 16:56 20:59 WBC RBC Hgb Hct MCV MCH MCHC RDW Plt Count Seg Neutrophils % Lymphocytes % Monocytes % Eosinophils % Basophils % Absolute Neutrophils Absolute Lymphocytes Absolute Monocytes Absolute Eosinophils Absolute Basophils PT INR APTT Sodium Potassium Chloride Carbon Dioxide Anion Gap BUN Creatinine Est GFR ( Amer) Est GFR (Non-Af Amer) Glucose POC Glucose 209 H 185 H 160 H Hemoglobin A1c % Calcium Total Bilirubin Direct Bilirubin Neonat Total Bilirubin Neonat Direct Bilirubin Neonat Indirect Bili AST ALT Alkaline Phosphatase Creatine Kinase CK-MB (CK-2) Troponin I Total Protein Albumin Triglycerides Cholesterol LDL Cholesterol Direct VLDL Cholesterol HDL Cholesterol Urine Color Urine Appearance Urine pH Ur Specific [place] Urine Protein Urine Glucose (UA) Urine Ketones Urine Blood Urine Nitrite Urine Bilirubin Urine Urobilinogen Ur Leukocyte Esterase Urine WBC (Auto) Urine RBC (Auto) Urine Mucus (Auto) Urine Ascorbic Acid Urine Opiates Screen Urine Methadone Screen Ur Barbiturates Screen Ur Phencyclidine Scrn Ur Amphetamines Screen U Benzodiazepines Scrn Urine Cocaine Screen U Marijuana (THC) Screen 11/20/18 11/20/18 21:17 21:17 WBC RBC Hgb Hct MCV MCH MCHC RDW Plt Count Seg Neutrophils % Lymphocytes % Monocytes % Eosinophils % Basophils % Absolute Neutrophils Absolute Lymphocytes Absolute Monocytes Absolute Eosinophils Absolute Basophils PT INR APTT Sodium Potassium Chloride Carbon Dioxide Anion Gap BUN Creatinine Est GFR ( Amer) Est GFR (Non-Af Amer) Glucose POC Glucose Hemoglobin A1c % Calcium Total Bilirubin Direct Bilirubin Neonat Total Bilirubin Neonat Direct Bilirubin Neonat Indirect Bili AST ALT Alkaline Phosphatase Creatine Kinase CK-MB (CK-2) Troponin I Total Protein Albumin Triglycerides Cholesterol LDL Cholesterol Direct VLDL Cholesterol HDL Cholesterol Urine Color YELLOW Urine Appearance CLEAR Urine pH 5.0 Ur Specific [place] 1.029 Urine Protein NEGATIVE Urine Glucose (UA) 150 H Urine Ketones NEGATIVE Urine Blood NEGATIVE Urine Nitrite NEGATIVE Urine Bilirubin NEGATIVE Urine Urobilinogen 2.0 H Ur Leukocyte Esterase NEGATIVE Urine WBC (Auto) 2 Urine RBC (Auto) 0 Urine Mucus (Auto) OCC Urine Ascorbic Acid NEGATIVE Urine Opiates Screen NEGATIVE Urine Methadone Screen NEGATIVE Ur Barbiturates Screen NEGATIVE Ur Phencyclidine Scrn NEGATIVE Ur Amphetamines Screen NEGATIVE U Benzodiazepines Scrn NEGATIVE Urine Cocaine Screen NEGATIVE U Marijuana (THC) Screen NEGATIVE Head MRI 11/19/18 00:00 IMPRESSION: No acute intracranial findings. Head CT 11/19/18 11:42 IMPRESSION: NORMAL BRAIN CT WITHOUT CONTRAST. EVIDENCE OF ACUTE STROKE: NO. Head CTA 11/19/18 11:42 IMPRESSION: NO CTA EVIDENCE OF STENOSIS OR ANEURYSM OF THE [place] OF [place]. Neck CTA 11/19/18 11:42 IMPRESSION: NORMAL CTA OF THE EXTRA-CRANIAL CAROTID AND VERTEBRAL ARTERIES. EKG: On 11/19 and 11/20 shows sinus rhythm probable left atrial abnormality, nonspecific T changes lateral leads. The patient's echocardiogram shows severely dilated LV with the severe global hypokinesis and ejection fraction of 20%. There is mild pulmonary hypertension. There is trace to mild tricuspid regurgitation. There is mild mitral regurgitation. IMPRESSION/recommendation: 1. Cardiomyopathy with dilated left ventricle and severely reduced LV ejection fraction. Patient is asymptomatic from this. Although this might be a combin ation of untreated hypertension and patient's diabetes mellitus, in view of the patient's young age as part of the ischemic work-up need to assess for presence of coronary artery disease procedure of stress testing versus cardiac catheterization discussed with the patient. Since the patient's young age cardiac catheterization would be more definitive for the presence or absence of coronary artery disease. The patient accepted to have cardiac catheterization. See below. I have started the patient on Coreg and Prinivil, and will increase the doses as tolerated by the patient. The patient does not appear to be volume overloaded and is does not have pedal edema and no definitive right heart failure. Hence we will not start the patient on any diuretics. Will get a chest x-ray early in the morning. Also PT PTT INR have been ordered. 2. Possible TIA resolved 3. Hypertension: Patient not on any blood pressure medication at home. Would recommend restarting the patient on a beta-shay and MARGARITO inhibitor which have been done. 4. Diabetes mellitus: Check serial Accu-Cheks and cover with anti-diabetic medications as needed. 5. History of prior CVA: Current CHAIN OFFBEARER imaging does not show any evidence of recurrent stroke. 6. History of seizure disorder. None this admission continue antiepileptics. 7. Tobacco abuse disorder: Tobacco cessation counseling given. 5 minutes spent on this patient I have explained the ill effects of smoking. The patient is accepted to undergo cardiac catheterization. I have explained the procedure to the patient detail and the patient is seen cardiac catheterization teaching video. I have explained to him that 1 of the [facility] global product manager will perform the cardiac catheterization. If it is lesion suitable for percutaneous intervention is found then the or if the patient is coronary artery bypass graft surgery the patient will be transferred to [facility] in [place] for revascularization. There is speeded which the transfer will occur depends on the nature of the lesion and the significance of the stenosis found. The patient is already seen a cardiac catheterization teaching video. I have discussed the risks and benefits of cardiac catheterization including the complications. The risk of CA stroke vascular bleeding and embolic complications dangerous allergy and renal failure diameter CVA, and vascular trauma have all been discussed in detail. Also the development of infection and venous thrombosis have been discussed. The procedure through the right radial approach and the right femoral approach have been discussed with the patient detail. Also the procedure of conscious sedation and uterus which sometimes include respiratory arrest, requiring ventilator support or intubation, allergic reaction and possible aspiration pneumonia of all been discussed with the patient detail.. The patient after all these has given an informed consent to undergo cardiac catheterization. Consent obtained by me with the patient fully knowledgeable of the fact that the performing patient will be the global product manager from [facility]. Medications reviewed medications started. Management plan discussed with the attending provider on the case. Medical decision making is of high complexity. I have also discussed the possibility of the patient that if the patient does not have significant coronary artery disease and if this is dilated cardiomyopathy, and if there is evidence of a prior echo done more than 3 months ago shows also LV function to be 35% or below the patient may be a candidate for AICD. In view of the patient's lack of insurance I am not sure if I can get the patient to wear LifeVest. But will try it. Also the possibility of placing the patient on transplant list has been discussed with the patient. A total of 60 minutes for the consultation and 30 minutes for the cardiac catheterization counseling was done. Will follow. I have discussed the case with , will be performing the catheterization, by telephone.
[2018-11-21] MEDS: ACETAMINOPHEN 325 MG TABLET PO PRN (00:48)
[2018-11-21] MEDS: HEPARIN SOD (PORCINE) 5,000 UNIT/ML 1 ML SYRINGE SUBCUT SCH ×3 (05:05→21:25)
[2018-11-21] MEDS: CARVEDILOL 12.5 MG TABLET PO SCH ×2 (05:35→17:48)
[2018-11-21 06:06] LABS: INTERNATIONAL RATION (INR) 0.94; PROTHROMBIN TIME 13.1 SEC (11.4-15.4)
[2018-11-21 06:07] LABS: PARTIAL THROMBOPLASTIN TIME 28.6 SEC (23.5-35.8)
[2018-11-21 06:21] LABS: ANION GAP 10 (5-19); BLOOD UREA NITROGEN 20 mg/dL (7-20); CALCIUM 8.6 mg/dL (8.4-10.2); CARBON DIOXIDE 24 mmol/L (22-30); CHLORIDE 109 mmol/L (98-107); GLUCOSE 165 mg/dL (75-110); POTASSIUM 3.6 mmol/L (3.6-5.0); SODIUM 142.7 mmol/L (137-145)
[2018-11-21] MEDS: INSULIN LISPRO 100 UNIT/ML 3 ML VIAL SUBCUT SCH ×4 (07:47→22:26)
[2018-11-21] MEDS ORDERED: DIPHENHYDRAMINE HCL 25 MG CAPSULE PO ONE (07:49)
[2018-11-21] MEDS ORDERED: DEXTROSE 5%-1/2 NORMAL SALINE 1,000 ML IV PRN (08:12)
--- NOTE | 2018-11-21 08:28 | RADIOLOGY REPORT (SQ) ---
EXAM DESCRIPTION: CHEST 2 VIEWS COMPLETED DATE/TIME: 11/21/2018 8:13 am REASON FOR STUDY: per MD order COMPARISON: AP chest 09/16/2016, 09/19/2015 EXAM PARAMETERS: NUMBER OF VIEWS: two views TECHNIQUE: Digital Frontal and Lateral radiographic views of the chest acquired. RADIATION DOSE: NA LIMITATIONS: none FINDINGS: LUNGS AND PLEURA: No opacities, masses or pneumothorax. No pleural effusion. MEDIASTINUM AND HILAR STRUCTURES: No masses or contour abnormalities. HEART AND VASCULAR STRUCTURES: Heart normal size. No evidence for failure. BONES: No acute findings. HARDWARE: None in the chest. OTHER: No other significant finding. IMPRESSION: NO ACUTE RADIOGRAPHIC FINDING IN THE CHEST. TECHNICAL DOCUMENTATION: JOB ID: [id number] [employer]- All Rights Reserved Reading location - IP/workstation name: [email or web address]
[2018-11-21] MEDS ORDERED: ASPIRIN 325 MG TABLET PO ONE (08:30)
[2018-11-21] MEDS ORDERED: DIAZEPAM 5 MG TABLET PO ONE (08:30)
[2018-11-21] MEDS ORDERED: LIDOCAINE 1% INJ-PF (10 MG/ML) 30 ML SDV ONE (08:52)
[2018-11-21] MEDS ORDERED: HEPARIN SODIUM,PORCINE/NS/PF 2,000 UNIT/1,000 ML RTUINJ IV ONE (08:52)
[2018-11-21] MEDS ORDERED: MIDAZOLAM HCL INJ 5 MG/1 ML VIAL ONE (08:55)
[2018-11-21] MEDS ORDERED: HEPARIN SOD (PORCINE) 1,000 UNIT/ML 10 ML VIAL ONE (08:55)
[2018-11-21] MEDS ORDERED: FENTANYL CITRATE INJ/PF 100 MCG/2 ML AMPUL ONE (08:55)
[2018-11-21] MEDS ORDERED: RADIAL COCKTAIL SYRINGE 10 ML IV PRN ×4 (09:00)
[2018-11-21] MEDS: ASPIRIN 81 MG TABLET, ENT COATED PO SCH (09:45)
--- NOTE | 2018-11-21 10:15 | Operative Report ---
Operative Report DATE OF SURGERY: 11/21/18 PREOPERATIVE DIAGNOSIS: New onset cardiomyopathy with depressed systolic functi on POSTOPERATIVE DIAGNOSIS: Single-vessel coronary artery disease OPERATION: Left heart catheterization SURGEON: JOE MARTIN PROCEDURE: Procedure: Left heart catheterization with selective coronary angiography and ventriculogram. Performing Physician: Joe Martin MD, [facility] Referring physician: Hospitalist service Mr. Marr presents to the cardiac catheterization suite in a fasting state. Informed consent is obtained. The Patient is monitored with continuous EKG, noninvasive and invasive hemodynamic monitoring, CO2 and O2 monitoring. Monitoring of conscious sedation was initiated at 9:26 AM, Moderate conscious sedation monitoring was completed at the end of the procedure at 9:55 AM. Total moderate sedation monitoring time of 29 minutes. Patient received a total dose of 3 milligrams of Versed and 75 micrograms of fentanyl. Patient's right and left groin and right wrist were prepped and draped in the usual sterile fashion. Using 1% lidocaine the right radial artery area was anesthetized. By way of Seldinger technique and micropuncture kit patient's right radial artery was accessed and a 6 [place] sheath was inserted into the right radial artery over a wire. A TIG 4.0 catheter was advanced over a wire. Patient received 4000 units of heparin after passing the aortic arch. Left coronary angiography was performed in multiple views. Right coronary angiography was performed in multiple views. Ventriculogram was performed in standard MANNING projection. Catheter and wire were removed without issue. A TR band was placed after the radial artery catheter was removed with adequate hemostasis. Total contrast: 90_ cc Optiray Hemodynamics: Aortic pressure: 133/78 mmHg Mean arterial pressure: 99 mmHg Left ventricular pressure: 115/4 mmHg Left ventricular end-diastolic pressure: 32 mmHg Ejection fraction 22% severe global hypokinesis and inferior wall near akinesis on MANNING view of ventriculogram Coronary anatomy: Left main: Normal left main giving rise to LAD and LCx in a normal fashion. It is free of disease. LAD: Type II moderate caliber vessel reaching the apex. Vessel gives off 2 small to moderate size diagonals. There are multiple septal perforators. The vessel is free of disease throughout its course. LCx: Moderate caliber majorly codominant vessel which continues distally into the AV groove as a small vessel and covers the inferior wall as a small to moderate caliber vessel. The first OM is a moderate caliber bifurcating vessel. Second OM is a small caliber vessel. The LCx and its branches are free of disease throughout its course. RCA: Small caliber minorly codominant vessel. There is a 70 to 80% mid stenosis just prior to the RV marginal branch. Distally the vessel tapers into a trivially sized PLB and PDA. Mild luminal irregularities distally but no other significant flow-limiting stenosis. Impression: 1. High-grade stenosis of a small moderately codominant RCA 2. Highly patent type II LAD and majorly codominant LCx which are free of disease. 3. Elevated LVEDP 4. These findings were discussed with consulting wire preparation worker and hospitalist. Given the single vessel disease of a small minorly codominant vessel, it is felt that this may not explain the global hypokinesis, further recommendations will be pending primary consulting wire preparation worker evaluation.
[2018-11-21] MEDS: NICOTINE 21 MG/24 HR PATCH.TD24 TD SCH (11:48)
[2018-11-21] MEDS: FAMOTIDINE 20 MG TABLET PO SCH ×2 (11:48→21:25)
[2018-11-21] MEDS: LISINOPRIL 5 MG TABLET PO SCH ×2 (11:48→21:24)
--- NOTE | 2018-11-21 15:10 | PDOC PROGRESS REPORT ---
Subjective Progress Note for:: 11/21/18 Subjective:: WHITNEY HENRY is a 48 year old male with a past medical history of hypertension, hyperlipidemia, DM 2, seizures, CHF, medical noncompliance, previous CVA with right-sided deficits, and tobacco dependence who was admitted 11/19/2018 for TIA/CVA rule out. Fortunately MRI was negative for acute CVA and his symptoms resolved overnight, however, echocardiogram revealed LVEF <20%. Patient was seen on morning rounds. He reports that he is somewhat nervous regarding the cardiac catheterization planned for this morning but otherwise has no complaints. He denies fever, chills, dizziness, headaches, blurred vision, focal deficits, chest pain, palpitations, dyspnea, orthopnea, dependent edema, abdominal pain, nausea vomiting and diarrhea. No concerns per nursing. Reason For Visit: SYSTOLIC CHF Physical Exam Vital Signs: Temp Pulse Resp BP Pulse Ox 98.2 F 74 20 165/92 H 99 11/21/18 07:52 11/21/18 12:40 11/21/18 12:40 11/21/18 12:40 11/21/18 12:40 Intake & Output 11/20/18 11/21/18 11/22/18 06:59 06:59 06:59 Intake Total 1192 636 Balance 1192 636 Weight 87.7 kg 83.8 kg General appearance: PRESENT: no acute distress, cooperative - Pleasant, well- developed, well-nourished Head exam: PRESENT: atraumatic, normocephalic Eye exam: PRESENT: conjunctiva pink, EOMI, PERRLA. ABSENT: scleral icterus Ear exam: PRESENT: normal external ear exam Mouth exam: PRESENT: moist, tongue midline Neck exam: ABSENT: carotid bruit, JVD, lymphadenopathy, thyromegaly Respiratory exam: PRESENT: clear to auscultation peewee, symmetrical, unlabored. ABSENT: rales, rhonchi, wheezes Cardiovascular exam: PRESENT: RRR, +S1, +S2. ABSENT: diastolic murmur, rubs, systolic murmur Pulses: PRESENT: normal dorsalis pedis pul Vascular exam: PRESENT: normal capillary refill GI/Abdominal exam: PRESENT: normal bowel sounds, soft. ABSENT: distended, guarding, mass, organolmegaly, rebound, tenderness Rectal exam: PRESENT: deferred Extremities exam: PRESENT: full ROM. ABSENT: calf tenderness, clubbing, pedal edema Musculoskeletal exam: PRESENT: ambulatory Neurological exam: PRESENT: alert, awake, oriented to person, oriented to place, oriented to time, oriented to situation, CN II-XII grossly intact. ABSENT: motor sensory deficit Psychiatric exam: PRESENT: appropriate affect, normal mood. ABSENT: homicidal ideation, suicidal ideation Skin exam: PRESENT: dry, intact, warm. ABSENT: cyanosis, rash Results Laboratory Results: 11/20/18 05:55 11/21/18 05:25 11/20/18 11/21/18 21:17 05:25 Sodium 142.7 Potassium 3.6 Chloride 109 H Carbon Dioxide 24 Anion Gap 10 BUN 20 Creatinine 0.79 Est GFR ( Amer) > 60 Est GFR (Non-Af Amer) > 60 Glucose 165 H Calcium 8.6 Urine Color YELLOW Urine Appearance CLEAR Urine pH 5.0 Ur Specific [place] 1.029 Urine Protein NEGATIVE Urine Glucose (UA) 150 H Urine Ketones NEGATIVE Urine Blood NEGATIVE Urine Nitrite NEGATIVE Ur Leukocyte Esterase NEGATIVE Urine WBC (Auto) 2 Urine RBC (Auto) 0 11/19/18 11/19/18 12:05 12:05 Creatine Kinase 65 CK-MB (CK-2) 0.74 Troponin I 0.045 Impressions: Head MRI 11/19/18 00:00 IMPRESSION: No acute intracranial findings. Head CT 11/19/18 11:42 IMPRESSION: NORMAL BRAIN CT WITHOUT CONTRAST. EVIDENCE OF ACUTE STROKE: NO. Head CTA 11/19/18 11:42 IMPRESSION: NO CTA EVIDENCE OF STENOSIS OR ANEURYSM OF THE [place]. Neck CTA 11/19/18 11:42 IMPRESSION: NORMAL CTA OF THE EXTRA-CRANIAL CAROTID AND VERTEBRAL ARTERIES. Chest X-Ray 11/21/18 00:00 IMPRESSION: NO ACUTE RADIOGRAPHIC FINDING IN THE CHEST. Assessment and Plan - Diagnosis (1) CVA (cerebral vascular accident) Qualifiers: CVA mechanism: other Qualified Code(s): I63.89 - Other cerebral infarction Is this a current diagnosis for this admission?: Yes Plan: Acute CVA is ruled out. Patient with history of CVA with residual right-sided weakness. Presented with worsened slurred speech and right-sided weakness that resolved spontaneously within 24 hours. Unfortunately, the patient has been noncompliant with his medication regiment since his review of stroke due to financial restraints (intermittently on metformin for management of diabetes mellitus, but has not been managing his blood pressure, hyperlipidemia, utilizing daily aspirin therapy, and continues to smoke). CT of the head is normal; no acute CVA. Neck and head CTA are benign. Head MRI is negative for acute CVA. EKG demonstrates normal sinus rhythm; no history of PAF. Echocardiogram demonstrated LVEF 20%. Lipid panel showed HDL 31, otherwise normal. A1c 9.6% Patient is admitted to [facility] on continuous cardiac telemetry. Continue daily aspirin and high-dose statin therapy. Vasotec for blood pressure control; SBP>180, DBP>90 PT/ST are consulted. Discharge planning is consulted. Cardiac diet. (2) Hyperlipidemia Is this a current diagnosis for this admission?: Yes Plan: HDL 31, LDL 85, triglycerides 130, total cholesterol 123 Patient is placed on a cardiac diet. High-dose statin. (3) DM type 2 (diabetes mellitus, type 2) Qualifiers: Diabetes mellitus fpc insulin use: without fpc use Diabetes mellitus complication status: with hyperglycemia Qualified Code(s): E11.65 - Type 2 diabetes mellitus with hyperglycemia Is this a current diagnosis for this admission?: Yes Plan: A1c 9.6%. Patient is placed on a consistent carb/cardiac diet. Accu-Cheks before meals and at bedtime with Humalog for sliding scale coverage. Home dose metformin is held. Registered dietitian and adaptive physical educator consulted. (4) HTN (hypertension) Is this a current diagnosis for this admission?: Yes Plan: Patient endorses a history of hypertension; he is not on medications at home at this time due to financial restraints/noncompliance. He is placed on a cardiac diet. IV Vasotec as needed for blood pressure control; SBP> 180, DBP>90 Cardiology is consulted; will defer hypertension management to their expertise. Patient was started on carvedilol and lisinopril. (5) Tobacco dependence Is this a current diagnosis for this admission?: Yes Plan: Smoking cessation is encouraged. Nicotine replacement therapies are provided. (6) CHF (congestive heart failure) Qualifiers: Heart failure type: systolic Heart failure chronicity: chronic Qualified Code(s): I50.22 - Chronic systolic (congestive) heart failure Is this a current diagnosis for this admission?: Yes Plan: Patient endorses history of systolic CHF. Echocardiogram demonstrates LVEF <20%, global hypokinesis of the left ventricle, mild mitral regurgitation, mild tricuspid regurgitation, mild pulmonary hypertension Cardiac diet Daily aspirin and statin therapy. Daily weights. Cardiology is consulted; started on carvedilol and lisinopril. Dr. Smith plans to start on Brilinta tomorrow. Now status post cardiac catheterization which revealed tight focal RCA, but otherwise no vessel disease. No stenting required at this time. - Time Time Spent with patient: 25-34 minutes Medications reviewed and adjusted accordingly: Yes Anticipated discharge: Home Within: Other - Pending cardiac clearance. - Plan Summary Plan Summary: Discharge planning, [facility] (Medicaid assist), patient navigator, and the [facility] to wellness program have all been consulted.
[2018-11-21] MEDS: ATORVASTATIN CALCIUM 80 MG TABLET PO SCH (21:24)
--- NOTE | 2018-11-21 22:20 | Progress Note ---
Provider Note Provider Note: CARDIOLOGY PROGRESS NOTE by Dr. Sondra Venegas on 11/21/2018. CARDIOLOGY PROGRESS NOTE by Dr. Sondra Smith on 11/21/2018. SUBJECTIVE: The patient underwent a cardiac catheterization and he was found to have a significant mid right coronary artery lesion. The right coronary artery is not a very big caliber. The patient has no chest pain or discomfort. There is no anginal symptoms or angina equal and symptoms symptoms. There is no PND orthopnea. There is no palpitations. There is no recurrence of TIA or CVA symptoms. There is no seizures. There is no leg edema. There is no PND orthopnea. The patient is able to walk around without any problems. There is no complaints of pain or swelling at the cath entry site in the right radial artery. There is no arrhythmia seen on the monitor. PHYSICAL EXAMINATION: The patient is well-built and well-nourished. In no acute distress. Selected Entries 11/22/18 15:42 Temperature 97.8 F Temperature Oral Source Pulse Rate 85 Respiratory 18 Rate Blood Pressure 112/73 Blood Pressure 86 Mean BP Location Left Arm BP Position Supine O2 Sat by Pulse 98 Oximetry Oxygen Delivery Room Air Method HEAD: Is atraumatic normocephalic. EYES: Pupils equal round regular react to light accommodation. Extraocular movements are normal. There is no conjunctival pallor there is no scleral icterus. EARS: Tympanic membranes are intact. External auditory canals are clear. NOSE: There is no deviated nasal septum. There is no inflammation nasal mucous membrane. MOUTH: MUCOUS MEMBRANES OF THE MOUTH ARE MOIST. TONGUE IS MOIST THERE IS NO ULCERS THERE IS NO BLEEDING FROM THE GUMS. Throat: There is no redness of the oropharynx. There is no exudates. SKIN: There is no skin lesions or skin rashes. There is no petechia or ecchymosis. NECK: Is supple. There is no JVD. Carotids are equal there is no bruits. There is no lymphadenopathy. There is no goiter. There is no accessory muscle respiration use. There is no goiter. Trachea central. LUNGS: Is clear to auscultation and percussion without any rhonchi rales or wheezing. There is no chest wall tenderness. HEART: S1-S2 is heard. There is no S3 gallop there is no S4 gallop. There is systolic murmur mitral regurgitation and tricuspid regurgitation present. There is no rub. There is no aortic stenosis or aortic regurgitation murmur. ABDOMEN: Soft. Nontender. There is no hepatosplenomegaly. Bowel sounds are well heard. There is no tender areas of masses. EXTREMITIES: Femorals are well felt. There is no femoral bruits. Leg pulses are well felt. There is no DVT or cellulitis. There is no pedal edema. There is no cyanosis or clubbing. Capillary refill is normal. Entry site of the right radial artery for cardiac catheterization looks without any complications or swelling or inflammation. MASTER CONTROL TECHNICIAN: The patient is conscious awake alert oriented x3 with mild right-sided weakness. PSYCHIATRIC: The patient judgment insight are intact his affect is normal. IMPRESSION/recommendation: 1. Cardiomyopathy with dilated left ventricle and severely reduced LV ejection fraction. Patient is asymptomatic from this. Although this might be a combination of untreated hypertension and patient's diabetes mellitus. The patient had a cardiac catheterization without any complications. This showed that the patient has a mid right coronary artery lesion. This is right coronary artery is not of big caliber, and is a codominant artery. The rest of the coronaries were normal. Note there is no indication at present for percutaneous intervention of the right coronary artery, since the patient has no anginal symptoms. Also revascularization of the right coronary artery will not improve the patient's LV function, and will not prolong the patient's survival. Hence would recommend medical treatment. Will get a IV Lexiscan Cardiolite as an outpatient. Also in view of the patient's severely reduced LV ejection fraction we will see if I can get the patient to have a LifeVest put on. It might be problematic since the patient has no insurance. Will either try for a LifeVest through the hospital or through my office. This has been discussed with the patient. I have also discussed the need to repeat the patient's echo in 3 luis m hs, and if if the echo still shows LV ejection fraction 35% or below we will refer the patient for an AICD. At that time the patient may need stenting of the right coronary artery. Will discuss with the EP cardiology in [place] later. 2. CORONARY ARTERY DISEASE: The lesions in the coronary artery out of proportion to the patient's LV ejection fraction reduction. Hence will add nitrates. Continue the patient on beta-shay and MARGARITO inhibitor. We will also start the patient on Brilinta. We will give him samples of this. We will continue the patient's aspirin. We will also aggressively modify risk factors on the patient's and the patient advised to modify his lifestyle. In addition we will also add statins. 3. Possible TIA resolved 4. Hypertension: Patient not on any blood pressure medication at home. Would recommend restarting the patient on a beta-shay and MARGARITO inhibitor which have been done. 5. Diabetes mellitus: Check serial Accu-Cheks and cover with anti-diabetic medications as needed. 6. History of prior CVA: Current MASTER CONTROL TECHNICIAN imaging does not show any evidence of recurrent stroke. 7. History of seizure disorder. None this admission continue antiepileptics. 8. Tobacco abuse disorder: Tobacco cessation counseling given. 5 minutes spent on this patient I have explained the ill effects of smoking. Medications reviewed. Medications added. Cardiac catheterization findings were discussed with the patient detail. Discussed management plan for the patient and also with attending physician on the case. I discussed with the respiratory care program director who performed a cardiac catheterization, and also with the internal sales at [place]. They both agree that the way to go is medical management of the patient, which I will maximize. Will add Brilinta. We will try to get the patient LifeVest. We will follow the patient up in the office. The patient has my cell phone number to call me if he has any complications. Office right radial artery entry cardiac catheterization. Also if he develops any shortness of breath palpitations or symptoms of heart failure or anginal symptoms the patient is to report to me. I have also discussed with the patient that in view of the patient being on nitrates he should not be using Cialis or Viagra or other such related medications for erectile dysfunction. The patient has not use them at all. Medical decision making is of high complexity. 60 minutes spent on the patient with more than 50% of time spent in direct patient care. The patient is a full code. His is his surrogate healthcare decision maker. Will sign off and follow the patient is an outpatient.
[2018-11-22] MEDS: ACETAMINOPHEN 325 MG TABLET PO PRN ×2 (04:03→09:33)
[2018-11-22 05:54] LABS: HEMATOCRIT 40.3 % (37.9-51.0); HEMOGLOBIN 13.9 g/dL (13.5-17.0); MEAN CORPUSCULAR HEMOGLOBIN 27.7 pg (27.0-33.4); MEAN CORPUSCULAR HGB CONC 34.4 g/dL (32.0-36.0); MEAN CORPUSCULAR VOLUME 81 fl (80-97); PLATELET COUNT 206 10^3/uL (150-450); RED CELL DISTRIBUTION WIDTH 13.3 % (11.5-14.0); WHITE BLOOD COUNT 8.7 10^3/uL (4.0-10.5)
[2018-11-22] MEDS: CARVEDILOL 12.5 MG TABLET PO SCH ×2 (05:57→17:00)
[2018-11-22] MEDS: HEPARIN SOD (PORCINE) 5,000 UNIT/ML 1 ML SYRINGE SUBCUT SCH ×2 (05:58→13:59)
[2018-11-22 06:15] LABS: ANION GAP 12 (5-19); BLOOD UREA NITROGEN 24 mg/dL (7-20); CALCIUM 8.9 mg/dL (8.4-10.2); CARBON DIOXIDE 22 mmol/L (22-30); CHLORIDE 107 mmol/L (98-107); GLUCOSE 225 mg/dL (75-110); POTASSIUM 3.9 mmol/L (3.6-5.0); SODIUM 140.5 mmol/L (137-145)
[2018-11-22] MEDS: INSULIN LISPRO 100 UNIT/ML 3 ML VIAL SUBCUT SCH ×3 (08:28→17:00)
[2018-11-22] MEDS: NICOTINE 21 MG/24 HR PATCH.TD24 TD SCH (09:32)
[2018-11-22] MEDS: LISINOPRIL 5 MG TABLET PO SCH (09:33)
[2018-11-22] MEDS: ASPIRIN 81 MG TABLET, ENT COATED PO SCH (09:33)
[2018-11-22] MEDS: FAMOTIDINE 20 MG TABLET PO SCH (09:33)
[2018-11-22] MEDS ORDERED: TICAGRELOR 90 MG TABLET PO SCH (12:00)
[2018-11-22] MEDS ORDERED: NITROGLYCERIN 0.4 MG/TAB 25 TAB/BOTTLE SL PRN (12:35)
[2018-11-22] MEDS ORDERED: ISOSORBIDE MONONITRATE 60 MG TAB.ER.24H PO ONE (14:30)
[2018-11-22] MEDS ORDERED: ISOSORBIDE MONONITRATE 30 MG TAB.ER.24H PO SCH (14:30)
[2018-11-22 21:02] VITALS: BP 134/90
--- NOTE | 2018-11-25 12:58 | PDOC DISCHARGE SUMMARY ---
General - Admit/Disc Date/PCP Admission Date/Primary Care Provider: 11/20/18 17:30 Discharge Date: 11/22/18 - Discharge Diagnosis (1) CVA (cerebral vascular accident) Is this a current diagnosis for this admission?: Yes Summary: Acute CVA is ruled out. Patient with history of CVA with residual right-sided weakness. Presented with worsened slurred speech and right-sided weakness that resolved spontaneously within 24 hours. Unfortunately, the patient has been noncompliant with his medication regiment due to financial restraints (intermittently on metformin for management of tasha betes mellitus, but has not been managing his blood pressure, hyperlipidemia, utilizing daily aspirin therapy, and continues to smoke). CT of the head is normal; no acute CVA. Neck and head CTA are benign. Head MRI is negative for acute CVA. EKG demonstrates normal sinus rhythm; no history of PAF. Echocardiogram demonstrated LVEF 20%. Lipid panel showed HDL 31, otherwise normal. A1c 9.6% Patient was admitted to [facility] on continuous cardiac telemetry and started on daily aspirin and high-dose statin therapy. Hyperglycemia and blood pressure control were ensured. PT/ST were consulted and subsequently signed off. (2) Hyperlipidemia Is this a current diagnosis for this admission?: Yes Summary: HDL 31, LDL 85, triglycerides 130, total cholesterol 123 Patient is placed on a cardiac diet and discharged on atorvastatin. (3) DM type 2 (diabetes mellitus, type 2) Is this a current diagnosis for this admission?: Yes Summary: A1c 9.6%. Patient is placed on a consistent carb/cardiac diet. He is discharged on Metformin and Januvia. He was provided the opportunity to meet with the registered dietitian and tobacco educator consulted. [facility] was consulted to assist w/ medication management. Discharge planning was consulted to assist w/ Medicaid application. (4) HTN (hypertension) Is this a current diagnosis for this admission?: Yes Summary: Patient endorses a history of hypertension; hehas not been on medications due to financial restraints/noncompliance. He is placed on a cardiac diet. Cardiology is consulted; he is discharged on carvedilol, lisinopril, and Imdur. [facility] was consulted to assist w/ medication management. Discharge planning was consulted to assist w/ Medicaid application. (5) Tobacco dependence Is this a current diagnosis for this admission?: Yes Summary: Smoking cessation is strongly encouraged. Patient is discharged on NicoDerm. (6) CHF (congestive heart failure) Is this a current diagnosis for this admission?: Yes Summary: Patient endorses history of systolic CHF; has not followed up with provider in several years. Echocardiogram demonstrates LVEF <20%, global hypokinesis of the left ventricle, mild mitral regurgitation, mild tricuspid regurgitation, mild pulmonary hypertension Now status post cardiac catheterization which revealed tight focal RCA, but otherwise no vessel disease. No stenting required at this time. Patient is placed on a cardiac diet and started on daily statin therapy. Cardiology was consulted; started on carvedilol, lisinopril, Imdur and Brilinta. 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 [facility] program is consulted for medication management/assistance. Discharge planning and [employer] were consulted. He was provided a LifeVest and received appropriate education regarding use prior to discharge. Patient is discharged to home with self care in stable condition. He is advised to continue medications as directed, eat a low sodium diet, and to STOP smoking. He is to follow up with his PCP within 1 week. He is to follow up with cardiology, Dr. Henry, within 1 week. He is instructed to return to the emergency department as needed for concerning symptoms. - Additional Information Resuscitation Status: Full Code Discharge Diet: Cardiac, Diabetic Discharge Activity: Activity As Tolerated, Balance Activity w/Rest, Slowly Increase Activity, Weigh Daily Prescriptions: Aspirin [Ecotrin 81 mg EC Tablet] 81 mg PO DAILY #90 tabec Atorvastatin Calcium [Lipitor 20 mg Tablet] 20 mg PO QHS #30 tablet Carvedilol [Coreg 12.5 mg Tablet] 12.5 mg PO Q12A #60 tablet Isosorbide Mononitrate [Imdur 30 mg Tablet.er] 30 mg PO DAILY #30 tab.er.24h Lisinopril [Prinivil 5 mg Tablet] 5 mg PO Q12 #60 tablet Nicotine [Nicoderm 21 mg/24 Hr Transderm Patch] 1 each TD DAILY #30 patch.td24 Nitroglycerin [Nitrostat 0.4 mg (1/150 Gr) Tabs 25/Bottle] 1 tab SL Q5MP PRN #1 bottle PRN Reason: Sitagliptin Phosphate [Januvia] 100 mg PO DAILY #30 tablet Ticagrelor [Brilinta 90 mg Tablet] 90 mg PO Q12 #30 tablet Transition To Wellness [Transition to Wellness Program] 1 each ASDIR PRN #1 each PRN Reason: Home Medications: Colchicine [Colchicine 0.6 mg Tablet] 0.6 mg PO DAILYP PRN 11/19/18 Metformin HCl [Glucophage 500 mg Tablet] 500 mg PO BID 11/19/18 Transition To Wellness [Transition to Wellness Program] 1 each ASDIR PRN #1 each 11/21/18 Acetaminophen [Tylenol 325 mg Tablet] 650 mg PO Q4HP PRN tablet 11/22/18 Aspirin [Ecotrin 81 mg EC Tablet] 81 mg PO DAILY #90 tabec 11/22/18 Atorvastatin Calcium [Lipitor 20 mg Tablet] 20 mg PO QHS #30 tablet 11/22/18 Carvedilol [Coreg 12.5 mg Tablet] 12.5 mg PO Q12A #60 tablet 11/22/18 Isosorbide Mononitrate [Imdur 30 mg Tablet.er] 30 mg PO DAILY #30 tab.er.24h 11/22/18 Lisinopril [Prinivil 5 mg Tablet] 5 mg PO Q12 #60 tablet 11/22/18 Nicotine [Nicoderm 21 mg/24 Hr Transderm Patch] 1 each TD DAILY #30 patch.td24 11/22/18 Nitroglycerin [Nitrostat 0.4 mg (1/150 Gr) Tabs 25/Bottle] 1 tab SL Q5MP PRN #1 bottle 11/22/18 Sitagliptin Phosphate [Januvia] 100 mg PO DAILY #30 tablet 11/22/18 Ticagrelor [Brilinta 90 mg Tablet] 90 mg PO Q12 #30 tablet 11/22/18 History of Present Illness History of Present Illness: WHITNEY HENRY is a 48 year old male with a past medical history of hypertension, hyperlipidemia, DM 2, seizures, CHF, medical noncompliance, previous CVA with right-sided deficits, and tobacco dependence who presented to the emergency department today with a complaint of worsened slurred speech and right-sided weakness from his baseline. He does admit that he has been intermittently compliant with metformin only over the last year but has not been taking any of his other recommended medications including aspirin. Evaluation in the emergency department was remarkable only for hypokalemia (K3.1; has been replaced by ED provider) and hyperglycemia. Head CT, head and neck CTA, and EKG are all benign. He is referred to the hospitalist service for admission and management of the above-stated complaints. Physical Exam Vital Signs: Temp Pulse Resp BP Pulse Ox 97.8 F 84 18 134/90 H 98 11/22/18 20:59 11/22/18 20:59 11/22/18 20:59 11/22/18 20:59 11/22/18 20:59 General appearance: PRESENT: no acute distress, cooperative - pleasant, well- developed, well-nourished Head exam: PRESENT: atraumatic, normocephalic Eye exam: PRESENT: conjunctiva pink, EOMI, PERRLA. ABSENT: scleral icterus Ear exam: PRESENT: normal external ear exam Mouth exam: PRESENT: moist, tongue midline Neck exam: ABSENT: carotid bruit, JVD, lymphadenopathy, thyromegaly Respiratory exam: PRESENT: clear to auscultation peewee. ABSENT: rales, rhonchi, wheezes Cardiovascular exam: PRESENT: RRR. ABSENT: diastolic murmur, rubs, systolic murmur Pulses: PRESENT: normal dorsalis pedis pul Vascular exam: PRESENT: normal capillary refill GI/Abdominal exam: PRESENT: normal bowel sounds, soft. ABSENT: distended, guarding, mass, organolmegaly, rebound, tenderness Rectal exam: PRESENT: deferred Extremities exam: PRESENT: full ROM. ABSENT: calf tenderness, clubbing, pedal edema Musculoskeletal exam: PRESENT: ambulatory Neurological exam: PRESENT: alert, awake, oriented to person, oriented to place, oriented to time, oriented to situation, CN II-XII grossly intact. ABSENT: motor sensory deficit Psychiatric exam: PRESENT: appropriate affect, normal mood. ABSENT: homicidal ideation, suicidal ideation Skin exam: PRESENT: dry, intact, warm. ABSENT: cyanosis, rash Results Laboratory Results: 11/22/18 05:03 11/22/18 05:03 11/19/18 11/19/18 12:05 12:05 Creatine Kinase 65 CK-MB (CK-2) 0.74 Troponin I 0.045 Impressions: Head MRI 11/19/18 00:00 IMPRESSION: No acute intracranial findings. Head CT 11/19/18 11:42 IMPRESSION: NORMAL BRAIN CT WITHOUT CONTRAST. EVIDENCE OF ACUTE STROKE: NO. Head CTA 11/19/18 11:42 IMPRESSION: NO CTA EVIDENCE OF STENOSIS OR ANEURYSM OF THE [place]. Neck CTA 11/19/18 11:42 IMPRESSION: NORMAL CTA OF THE EXTRA-CRANIAL CAROTID AND VERTEBRAL ARTERIES. Chest X-Ray 11/21/18 00:00 IMPRESSION: NO ACUTE RADIOGRAPHIC FINDING IN THE CHEST. Qualifiers - * PATIENT BEING DISCHARGED WITH ANY OF THE FOLLOWING DIAGNOSIS: No Acute Heart Failure Is this a Heart Failure Patient?: Yes Documentation of LVEF assessment?: Yes LVEF < 40%?: Yes-if yes answer questions a through e a) Discharged on ACEI?: Yes b) Discharges on ARB?: No-document contraindications - On MARGARITO; medications per Cardiology c) Discharged on ARNI?: No-Document Contraindications - On MARGARITO; medications per Cardiology. Patient uninsured. d) Discharged on evidence-based Beta shay(carvedilol, sustained release metoprolol succinate, or bisoprolol)?: Yes e) For LVEF <35%, discharged on Aldosterone antagonist?: No-document contraincations - Medications per Cardiology. 3. Anticoagulant therapy for permanect/persistent/paraoxysmal Afib or Aflutter: N/A Follow-up Appointment scheduled within 7 days?: Yes Plan Discharge Plan: Follow up with Dr. Henry within 1 week. Follow up with PCP within 1 week. STOP smoking. Take your medications as prescribed. Wear Life Vest at all times. Return to the emergency department as needed for concerning symptoms. Time Spent: Greater than 30 Minutes
== END 2018-11-22 21:50 | disposition home or self-care (01) | DRG 69 ==
LOC: ER 11:41 → EH 12:40 → INTOOBSV 12:40 → 3W 15:48 → OBSVTOIN 17:54 → INTOOBSV 17:54 → OBSVTOIN 11-20 17:30
PROVIDERS: ADMIT Internal Medicine; ATTEND Internal Medicine
PROC: 4A023N7 Measurement of Cardiac Sampling and Pressure, Left Heart, Percutaneous Approach (ICD-10-PCS; principal; 2018-11-21)
PROC: B2111ZZ Fluoroscopy of Multiple Coronary Arteries using Low Osmolar Contrast (ICD-10-PCS; 2018-11-21)
PROC: B2051ZZ Plain Radiography of Left Heart using Low Osmolar Contrast (ICD-10-PCS; 2018-11-21)
DX: G45.9 Transient cerebral ischemic attack, unspecified (principal); I69.351 Hemiplegia and hemiparesis following cerebral infarction affecting right dominant side; I50.22 Chronic systolic (congestive) heart failure; I42.9 Cardiomyopathy, unspecified; I11.0 Hypertensive heart disease with heart failure; I69.328 Other speech and language deficits following cerebral infarction; E78.5 Hyperlipidemia, unspecified; E87.6 Hypokalemia; E11.65 Type 2 diabetes mellitus with hyperglycemia; I69.392 Facial weakness following cerebral infarction; M19.90 Unspecified osteoarthritis, unspecified site; M10.9 Gout, unspecified; Z91.120 Patient's intentional underdosing of medication regimen due to financial hardship; F17.210 Nicotine dependence, cigarettes, uncomplicated; Z82.49 Family history of ischemic heart disease and other diseases of the circulatory system; Z83.3 Family history of diabetes mellitus; Z79.84 Long term (current) use of oral hypoglycemic drugs; Z88.8 Allergy status to other drugs, medicaments and biological substances; Z79.82 Long term (current) use of aspirin; Z79.899 Other long term (current) drug therapy
CPT/HCPCS: 36415; 70450; 70496; 70498; 70551; 71046; 80048; 80053; 80061; 80307; 81001; 82550; 82553; 82962; 83036; 84484; 85025; 85027; 85610; 85730; 93005; 93010; 93306; 93458; 99291; G0378; J1644; J1815; J2250; J2405; J3010; J3480; J3490

== ENCOUNTER 2018-12-26 12:58 | Inpatient (IN) | payer SELFPAY ==
[2018-12-26 14:09] LABS: ABSOLUTE BASOPHILS # (AUTO) 0.1 10^3/uL (0.0-0.2); ABSOLUTE EOSINOPHILS # (AUTO) 0.1 10^3/uL (0.0-0.6); ABSOLUTE LYMPHOCYTES (AUTO) 2.3 10^3/uL (0.5-4.7); ABSOLUTE NEUT (AUTO) 11.4 10^3/uL (1.7-8.2); BASOPHILS % (AUTO) 0.4 % (0-2); EOSINOPHILS % (AUTO) 0.5 % (0-6); HEMATOCRIT 45.7 % (37.9-51.0); LYMPHOCYTES % (AUTO) 15.7 % (13-45); MEAN CORPUSCULAR HEMOGLOBIN 28.1 pg (27.0-33.4); MEAN CORPUSCULAR HGB CONC 35.1 g/dL (32.0-36.0); MEAN CORPUSCULAR VOLUME 80 fl (80-97); MONOCYTES % (AUTO) 6.7 % (3-13); PLATELET COUNT 212 10^3/uL (150-450); SEGMENTED NEUTROPHILS % (AUTO) 76.7 % (42-78); TOTAL CELLS COUNTED % (AUTO) 100 %; WHITE BLOOD COUNT 14.9 10^3/uL (4.0-10.5)
[2018-12-26 14:35] LABS: ALANINE AMINOTRANSFERASE 39 U/L (21-72); ALBUMIN 4.3 g/dL (3.5-5.0); ALKALINE PHOSPHATASE 120 U/L (38-126); ANION GAP 12 (5-19); ASPARTATE AMINO TRANSFERASE 22 U/L (17-59); BILIRUBIN,DIRECT 0.3 mg/dL (0.0-0.4); BILIRUBIN,TOTAL 1.3 mg/dL (0.2-1.3); BLOOD UREA NITROGEN 15 mg/dL (7-20); CALCIUM 9.1 mg/dL (8.4-10.2); CARBON DIOXIDE 23 mmol/L (22-30); CHLORIDE 105 mmol/L (98-107); GLUCOSE 185 mg/dL (75-110); POTASSIUM 4.1 mmol/L (3.6-5.0); SODIUM 140.3 mmol/L (137-145); TOTAL PROTEIN 7.8 g/dL (6.3-8.2)
--- NOTE | 2018-12-26 14:52 | RADIOLOGY REPORT (SQ) ---
EXAM DESCRIPTION: CHEST SINGLE VIEW COMPLETED DATE/TIME: 12/26/2018 2:32 pm REASON FOR STUDY: SOB COMPARISON: 11/21/2018 EXAM PARAMETERS: NUMBER OF VIEWS: One view. TECHNIQUE: Single frontal radiographic view of the chest acquired. RADIATION DOSE: NA LIMITATIONS: None. FINDINGS: LUNGS AND PLEURA: No opacities, masses or pneumothorax. No pleural effusion. MEDIASTINUM AND HILAR STRUCTURES: No masses. Contour normal. HEART AND VASCULAR STRUCTURES: Heart normal in size. Normal vasculature. BONES: No acute findings. HARDWARE: None in the chest. OTHER: No other significant finding. IMPRESSION: NO ACUTE RADIOGRAPHIC FINDING IN THE CHEST. TECHNICAL DOCUMENTATION: JOB ID: [id number] [employer]- All Rights Reserved Reading location - IP/workstation name: [email or web address]
--- NOTE | 2018-12-26 15:24 | ER Document Report ---
ED General - General Chief Complaint: Breathing Difficulty Stated Complaint: BREATHING PROBLEMS Time Seen by Provider: 12/26/18 14:55 Notes: 48-year-old male with history of congestive heart failure presents emergency department with chief complaint of feeling unwell for 2 days. He said he is felt generally tired and family in the room says that he is not himself. He says that he has required to lay down propped up higher than usual. He does endorse some reduced exercise tolerance. He complains that he does have a persistent cough and complains of fever as well. He denies any headache, sore throat, earache, chest pain, nausea or vomiting, diarrhea, constipation. He states that he has had some recent weight gain. No other complaints. TRAVEL OUTSIDE OF THE [place] IN LAST 30 DAYS: No - Related Data Allergies/Adverse Reactions: lamotrigine [From Lamictal] Allergy (Verified 12/26/18 12:59) levetiracetam [From Keppra] Allergy (Verified 12/26/18 12:59) phenytoin [From Dilantin] Allergy (Verified 12/26/18 12:59) tramadol Allergy (Verified 12/26/18 12:59) Past Medical History - Social History Smoking Status: Unknown if Ever Smoked Frequency of alcohol use: None Drug Abuse: None Family History: CAD, CVA, DM Patient has suicidal ideation: No Patient has homicidal ideation: No - Past Medical History Cardiac Medical History: Reports: Hx Congestive Heart Failure, Hx Hypercholesterolemia, Hx Hypertension Neurological Medical History: Reports: Hx Cerebrovascular Accident, Hx Seizures Endocrine Medical History: Reports: Hx Diabetes Mellitus Type 2 Renal/ Medical History: Denies: Hx Peritoneal Dialysis Musculoskeletal Medical History: Reports Hx Arthritis, Reports Hx Gout Psychiatric Medical History: Reports: Hx Depression Review of Systems - Review of Systems Constitutional: See HPI EENT: No symptoms reported Cardiovascular: See HPI Respiratory: See HPI Gastrointestinal: See HPI Genitourinary: See HPI Male Genitourinary: No symptoms reported Musculoskeletal: No symptoms reported Skin: No symptoms reported Hematologic/Lymphatic: No symptoms reported Neurological/Psychological: No symptoms reported Physical Exam - Vital signs Vitals: Temp Pulse Resp BP Pulse Ox 100.1 F 110 H 16 125/81 95 12/26/18 13:06 12/26/18 13:06 12/26/18 13:06 12/26/18 13:06 12/26/18 13:06 - Notes Notes: PHYSICAL EXAMINATION: Reviewed vital signs and charting by RN GENERAL: Alert, interacts well. No acute distress. HEAD: Normocephalic, atraumatic. EYES: Pupils equal and round. Extraocular movements intact. ENT: Oral mucosa moist, tongue midline. NECK: Full range of motion. Trachea midline. LUNGS: Clear to auscultation bilaterally, no wheezes, rales, or rhonchi. No respiratory distress. HEART: Regular rate and rhythm. No murmur ABDOMEN: soft, non-tender. No distention. Bowel sounds present EXTREMITIES: Moves all 4 extremities spontaneously. No edema, No cyanosis. PSYCH: Normal affect, normal mood. SKIN: Warm, dry, normal turgor. No rashes or lesions noted. Course - Re-evaluation Re-evalutation: 12/26/18 15:24 Overall well-appearing, patient is wearing LifeVest, lungs are clear. Patient has a leukocytosis of 14,600. Patient has low-grade fever. Chest x-ray was read as negative 12/26/18 15:[address] Sevilla. Plan is to take him off of the oxygen and reassess in 10 minutes and ambulate him on pulse ox. Concerned because he is tachycardic that we cannot rule out a PE so plan is for a CTA chest. 12/26/18 16:59 Patient ambulated on pulse ox off of oxygen and was 100% on room air. CTA was complete and read is pending. Will revisit with Dr. Sevilla once CTA is read. 12/26/18 19:47 CTA was negative for luminary embolism but did reveal a pneumonia. Because patient has external defibrillator after discussion with Dr. Sevilla would be more comfortable admitting the patient for pneumonia. I called Dr. Munoz, hospitalist, who accepted the patient for full admission. - Vital Signs Vital signs: Temp Pulse Resp BP Pulse Ox 101.6 F H 110 H 32 H 114/81 98 12/26/18 19:53 12/26/18 13:06 12/26/18 18:01 12/26/18 18:01 12/26/18 18:01 - Laboratory Result Diagrams: 12/26/18 13:45 12/26/18 13:45 Laboratory results interpreted by me: 12/26/18 12/26/18 12/26/18 13:45 13:45 13:45 WBC 14.9 H RBC 5.70 H Absolute Neutrophils 11.4 H Glucose 185 H NT-Pro-B Natriuret Pep 4100 H Urine Protein 12/26/18 15:25 WBC RBC Absolute Neutrophils Glucose NT-Pro-B Natriuret Pep Urine Protein 30 H Discharge - Discharge Clinical Impression: Shortness of breath Pneumonia Qualifiers: Pneumonia type: due to unspecified organism Laterality: right Lung location: lower lobe of lung Qualified Code(s): J18.1 - Lobar pneumonia, unspecified organism Condition: Stable Disposition: ADMITTED INPATIENT Unit Admitted: Telemetry
[2018-12-26 15:42] LABS: APPEARANCE,URINE SLIGHTLY-CLOUDY; BILIRUBIN,URINE NEGATIVE (NEGATIVE); COLOR,URINE AMBER; GLUCOSE, URINE NEGATIVE (NEGATIVE); KETONES,URINE NEGATIVE (NEGATIVE); LEUKOCYTE ESTERASE,URINE NEGATIVE (NEGATIVE); NITRITE,URINE NEGATIVE (NEGATIVE); PROTEIN,URINE 30 mg/dL (NEGATIVE); URINE SPECIFIC GRAVITY 1.023; UROBILINOGEN,URINE NEGATIVE mg/dL (<2.0)
--- NOTE | 2018-12-26 17:02 | RADIOLOGY REPORT (SQ) ---
EXAM DESCRIPTION: CTA CHEST COMPLETED DATE/TIME: 12/26/2018 4:17 pm REASON FOR STUDY: tachycardia/sob COMPARISON: Chest films 12/26/2018, 11/21/2018, 09/19/2015 TECHNIQUE: CT scan of the chest performed using helical scanning technique with dynamic intravenous contrast injection. Images reviewed with lung, soft tissue and bone windows. Reconstructed coronal and sagittal MPR images reviewed. Additional 3 dimensional post-processing performed to develop Maximal Intensity Projection images (MT P). All images stored on PACS. All CT scanners at this facility use dose modulation, iterative reconstruction, and/or weight based d osing when appropriate to reduce radiation dose to as low as reasonably achievable (ALARA). [facility]: Dose Right [facility]: CareDose [facility]: Dose Right [facility]: Teradose 4D [facility]: EverCloud CONTRAST TYPE AND DOSE: contrast/concentration: Isovue 350.00 mg/ml; Total Contrast Delivered: 79.0 ml; Total Saline Delivered: 80.0 ml Limited contrast bolus for the aorta and pulmonary arteries RENAL FUNCTION: Creatinine 1.0 RADIATION DOSE: CT Rad equipment meets quality standard of care and radiation dose reduction techniq ues were employed. CTDIvol: 17.0 - 33.1 mGy. DLP: 718 mGy-cm. . LIMITATIONS: None. FINDINGS: LUNGS AND PLEURA: There is patchy airspace disease in the right lower lobe worrisome for a cute pneumonia. Remainder of the lungs show extensive change of peripheral enlarged airspaces along the subpleural re gions of both upper and lower lobes and right middle lobe. No pneumothorax. No pleural effusions. AORTA AND GREAT VESSELS: No thoracic aortic aneurysm or dissection HEART: No pericardial effusion. No significant coronary artery calcifications. PULMONARY ARTERIES: Limited contrast bolus. No acute emboli to the main, right or left lobar pulmona ry artery is or proximal segmental pulmonary arteries HILAR AND MEDIASTINAL STRUCTURES: Multiple enlarged mediastinal and hilar lymph nodes are present HARDWARE: None in the chest. UPPER ABDOMEN: No significant findings. Limited exam. THYROID AND OTHER SOFT TISSUES: No masses. No adenopathy. BONES: No findings 3D MIPS: Confirm above findings. OTHER: No other significant finding. IMPRESSION: Right lower lobe airspace disease worrisome for pneumonia Limited contrast bolus. No gross large pulmonary emboli Abnormal lung parenchyma with prominent peripheral airspaces along the subpleural aspect of both lung s COMMENT: Quality ID # [id number]: Final reports with documentation of one or more dose reduction techniques (e.g., Automated exposure control, adjustment of the mA and/or kV according to patient size, use of iterative reconstruction technique) TECHNICAL DOCUMENTATION: JOB ID: [id number] [employer]- All Rights Reserved Reading location - IP/workstation name: [email or web address] LICENSE OF [facility]ENTERKelsey
--- NOTE | 2018-12-26 18:47 | EKG REPORT ---
SEVERITY:- BORDERLINE ECG - SINUS TACHYCARDIA PROMINENT P WAVES, NONDIAGNOSTIC BORDERLINE T WAVE ABNORMALITIES : Confirmed by: Felipe Weir MD 26-Dec-2018 18:47:22
[2018-12-26] MEDS ORDERED: ACETAMINOPHEN 325 MG TABLET PO PRN (19:05)
[2018-12-26] MEDS ORDERED: IPRATROPIUM/ALBUTEROL 0.5-2.5 MG/3 ML AMPUL NEB PRN (19:05)
[2018-12-26] MEDS ORDERED: NITROGLYCERIN 0.4 MG/TAB 25 TAB/BOTTLE SL PRN (19:19)
[2018-12-26] MEDS ORDERED: DEXTROSE 50%-WATER 25 GM/50 ML DISP.SYRIN IV PRN ×2 (19:21)
[2018-12-26] MEDS ORDERED: DEXTROSE 40% GEL 15 GM TUBE PO PRN ×2 (19:21)
[2018-12-26] MEDS ORDERED: GLUCAGON,HUMAN RECOMB 1 MG INJ IM PRN (19:21)
--- NOTE | 2018-12-26 19:59 | PDOC H&P ---
History of Present Illness Admission Date/PCP: STEFFANIE BOTELLO MD Patient complains of: Productive Cough with increased SOB History of Present Illness: WHITNEY HENRY is a 48 year old male who was just admitted to this hospital in early November. He has a history of severe cardiomyopathy requiring a life vest, congestive heart failure, hyperlipidemia, diabetes mellitus type 2, seizures and old CVA. He reports that 2 days ago he began to feel poorly. His breathing was slightly compromised. He began to have a productive cough with thick brown sputum. He felt chills on occasion but denied fever. He had no cardiac symptoms. On presentation to the emergency department he was found to have an elevated white blood cell count. He was hypoxic and received oxygen. Although a chest x-ray was benign CT scan showed an infiltrate. He was referred to the hospital service for admission. Past Medical History Cardiac Medical History: Reports: Congestive Heart Failure, Hyperlipidema, Hypertension Neurological Medical History: Reports: Ischemic CVA, Seizures Endocrine Medical History: Reports: Diabetes Mellitus Type 2 Musculoskeltal Medical History: Reports: Arthritis, Gout Psychiatric Medical History: Reports: Depression Past Surgical History Past Surgical History: Reports: Cardiac Catheterization Social History Information Source: Patient Lives with: Family Smoking Status: Former Smoker Last Time Smoked: November Frequency of Alcohol Use: None Hx Recreational Drug Use: No Drugs: None Hx Prescription Drug Abuse: No - Advance Directive Resuscitation Status: Full Code Surrogate healthcare decision maker:: He does not have formal documentation but his is the designated decision maker. Family History Family History: Arthritis, CAD, COPD, CVA, DM, Malignancy Parental Family History Reviewed: Yes Children Family History Reviewed: Yes Sibling(s) Family History Reviewed.: Yes Medication/Allergy Home Medications: Aspirin [Adult Low Dose Aspirin EC] 81 mg PO DAILY 12/26/18 Atorvastatin Calcium [Lipitor 20 mg Tablet] 20 mg PO QHS 12/26/18 Carvedilol [Coreg 12.5 mg Tablet] 12.5 mg PO Q12 12/26/18 Clopidogrel Bisulfate [Plavix 75 mg Tablet] 75 mg PO DAILY 12/26/18 Isosorbide Mononitrate [Imdur 30 mg Tablet.er] 30 mg PO DAILY 12/26/18 Lisinopril [Prinivil 5 mg Tablet] 5 mg PO Q12 12/26/18 Metformin HCl [Glucophage 500 mg Tablet] 500 mg PO BID 12/26/18 Nitroglycerin [Nitrostat 0.4 mg (1/150 Gr) Tabs 25/Bottle] 1 tab SL Q5MP PRN 12/26/18 Ticagrelor [Brilinta 90 mg Tablet] 90 mg PO DAILY 12/26/18 Allergies/Adverse Reactions: lamotrigine [From Lamictal] Allergy (Verified 12/26/18 12:59) levetiracetam [From Keppra] Allergy (Verified 12/26/18 12:59) phenytoin [From Dilantin] Allergy (Verified 12/26/18 12:59) tramadol Allergy (Verified 12/26/18 12:59) Review of Systems Constitutional: PRESENT: as per HPI, chills. ABSENT: fever(s), night sweats Eyes: ABSENT: visual disturbances Nose, Mouth, and Throat: ABSENT: headache(s), mouth pain, sore throat Cardiovascular: ABSENT: chest pain, edema, orthropnea, palpitations Respiratory: PRESENT: cough, dyspnea, sputum Gastrointestinal: ABSENT: abdominal pain, constipation, diarrhea, heartburn, nausea, vomiting Genitourinary: ABSENT: dysuria, hematuria Musculoskeletal: ABSENT: joint swelling, muscle weakness Integumentary: ABSENT: lesions, rash Neurological: ABSENT: abnormal gait, confusion, memory loss, tremor(s) Psychiatric: ABSENT: anxiety, depression, hallucinations Endocrine: ABSENT: cold intolerance, flushing, heat intolerance, polydipsia, polyuria Hematologic/Lymphatic: ABSENT: easy bleeding, easy bruising Physical Exam Vital Signs: Temp Pulse Resp BP Pulse Ox 100.3 F 110 H 32 H 114/81 98 12/26/18 17:31 12/26/18 13:06 12/26/18 18:01 12/26/18 18:01 12/26/18 18:01 Intake & Output 12/25/18 12/26/18 12/27/18 06:59 06:59 06:59 Weight 87.997 kg General appearance: PRESENT: no acute distress, cooperative, well-developed Head exam: PRESENT: atraumatic, normocephalic Eye exam: PRESENT: conjunctiva pink, EOMI. ABSENT: scleral icterus Ear exam: PRESENT: normal external ear exam Mouth exam: PRESENT: dry mucosa, tongue midline Throat exam: ABSENT: post pharyngeal erythema Neck exam: PRESENT: full ROM. ABSENT: carotid bruit, JVD, lymphadenopathy Respiratory exam: PRESENT: rhonchi - Right base, symmetrical. ABSENT: accessory muscle use, rales, tachypnea, wheezes Cardiovascular exam: PRESENT: RRR, +S1, +S2, systolic murmur - 2/6 GI/Abdominal exam: PRESENT: normal bowel sounds, soft. ABSENT: distended, tenderness Rectal exam: PRESENT: deferred Gentrourinary exam: ABSENT: indwelling catheter Extremities exam: ABSENT: joint swelling, pedal edema Musculoskeletal exam: PRESENT: ambulatory, normal inspection Neurological exam: PRESENT: alert, awake, oriented to person, oriented to place, oriented to time, oriented to situation, CN II-XII grossly intact Psychiatric exam: PRESENT: appropriate affect, normal mood. ABSENT: agitated, anxious Focused psych exam: ABSENT: delusional, restlessness Skin exam: PRESENT: dry, normal color, warm. ABSENT: rash Results Laboratory Results: 12/26/18 13:45 12/26/18 13:45 12/26/18 12/26/18 12/26/18 13:45 13:45 15:25 WBC 14.9 H RBC 5.70 H Hgb 16.0 Hct 45.7 MCV 80 MCH 28.1 MCHC 35.1 RDW 14.0 Plt Count 212 Seg Neutrophils % 76.7 Lymphocytes % 15.7 Monocytes % 6.7 Eosinophils % 0.5 Basophils % 0.4 Absolute Neutrophils 11.4 H Absolute Lymphocytes 2.3 Absolute Monocytes 1.0 Absolute Eosinophils 0.1 Absolute Basophils 0.1 Sodium 140.3 Potassium 4.1 Chloride 105 Carbon Dioxide 23 Anion Gap 12 BUN 15 Creatinine 1.04 Est GFR ( Amer) > 60 Est GFR (Non-Af Amer) > 60 Glucose 185 H Calcium 9.1 Total Bilirubin 1.3 AST 22 ALT 39 Alkaline Phosphatase 120 Total Protein 7.8 Albumin 4.3 Urine Color LUÍS Urine Appearance SLIGHTLY-CLOUDY Urine pH 5.0 Ur Specific [place] 1.023 Urine Protein 30 H Urine Glucose (UA) NEGATIVE Urine Ketones NEGATIVE Urine Blood NEGATIVE Urine Nitrite NEGATIVE Ur Leukocyte Esterase NEGATIVE Urine WBC (Auto) 3 Urine RBC (Auto) 1 12/26/18 13:45 NT-Pro-B Natriuret Pep 4100 H Impressions: Chest X-Ray 12/26/18 13:33 IMPRESSION: NO ACUTE RADIOGRAPHIC FINDING IN THE CHEST. Chest/Abdomen CTA 12/26/18 15:37 IMPRESSION: Right lower lobe airspace disease worrisome for pneumonia Limited contrast bolus. No gross large pulmonary emboli Abnormal lung parenchyma with prominent peripheral airspaces along the subpleural aspect of both lungs Assessment and Plan - Diagnosis (1) Right lower lobe pneumonia Qualifiers: Pneumonia type: due to Pneumococcus Qualified Code(s): J13 - Pneumonia due to Streptococcus pneumoniae Is this a current diagnosis for this admission?: Yes Plan: 12/26/2018-the patient has a community-acquired pneumonia. It is most likely pneumococcal as the Gram stain showed gram-positive cocci in pairs. The patient was started on azithromycin and Rocephin. He was also started on Mucinex and nebulizers are available if needed. (2) Chronic systolic heart failure Is this a current diagnosis for this admission?: Yes Plan: 12/26/2018-the patient was recently hospitalized in November. He had a cardiac cathet erization that showed no significant coronary disease however he has a cardiomyopathy with severely depressed ejection fraction less than 20%. He must wear a life vest for this. He does not appear to be on diuretic therapy at home. We will monitor his intake and output especially with gentle IV fluids and antibiotics. If needed we can diurese the patient. (3) Cardiomyopathy of undetermined type Is this a current diagnosis for this admission?: Yes Plan: 12/26/2018-as noted above the patient is in the midst of a work-up for cardiomyopathy. He has another stress test scheduled for next month. Then the decision will be made regarding implantable defibrillator or consideration for transplant. We will continue the patient's Coreg, lisinopril and Imdur as well as statin therapy, aspirin, Plavix and Brilinta. (4) DM type 2 (diabetes mellitus, type 2) Qualifiers: Diabetes mellitus termination clerk insulin use: without termination clerk use Diabetes mellitus complication status: with hyperglycemia Qualified Code(s): E11.65 - Type 2 diabetes mellitus with hyperglycemia Is this a current diagnosis for this admission?: Yes Plan: 12/26/2018-the patient is usually on metformin however he did receive IV contrast for his CT scan. I will therefore hold the metformin and use a Humalog sliding scale. He will be on a consistent carbohydrate/cardiac diet. (5) HTN (hypertension) Qualifiers: Hypertension type: essential hypertension Qualified Code(s): I10 - Essential (primary) hypertension Is this a current diagnosis for this admission?: Yes Plan: 12/26/2018-we will continue the patient's current medication regimen. This consists of Coreg lisinopril and Imdur. Monitor blood pressures. (6) Hyperlipidemia Qualifiers: Hyperlipidemia type: mixed hyperlipidemia Qualified Code(s): E78.2 - Mixed hyperlipidemia Is this a current diagnosis for this admission?: Yes Plan: 12/26/2018-we will continue the patient's statin therapy. - Time Time Spent with patient: 35 or more minutes Medications reviewed and adjusted accordingly: Yes Anticipated discharge: Home
[2018-12-26] MEDS ORDERED: INSULIN LISPRO 100 UNIT/ML 3 ML VIAL ONE (22:01)
[2018-12-26] MEDS: ATORVASTATIN CALCIUM 20 MG TABLET PO SCH (22:05)
[2018-12-26] MEDS: CARVEDILOL 12.5 MG TABLET PO SCH (22:05)
[2018-12-26] MEDS: AZITHROMYCIN 500 MG in DEXTROSE 5%-WATER 250 ML IV SCH (22:05)
[2018-12-26] MEDS: HEPARIN SOD (PORCINE) 5,000 UNIT/ML 1 ML SYRINGE SUBCUT SCH (22:05)
[2018-12-26] MEDS: LISINOPRIL 5 MG TABLET PO SCH (22:06)
[2018-12-26] MEDS: GUAIFENESIN 600 MG TABLET.SA PO SCH (22:06)
[2018-12-26] MEDS: CEFTRIAXONE SODIUM 1,000 MG in DEXTROSE 5%-WATER 50 ML IV SCH (22:06)
[2018-12-26] MEDS: INSULIN LISPRO 100 UNIT/ML 3 ML VIAL SUBCUT SCH (23:24)
[2018-12-27 06:12] LABS: ABSOLUTE EOSINOPHILS # (AUTO) 0.2 10^3/uL (0.0-0.6); ABSOLUTE LYMPHOCYTES (AUTO) 2.1 10^3/uL (0.5-4.7); ABSOLUTE NEUT (AUTO) 6.8 10^3/uL (1.7-8.2); BASOPHILS % (AUTO) 0.3 % (0-2); EOSINOPHILS % (AUTO) 2.2 % (0-6); HEMATOCRIT 39.7 % (37.9-51.0); LYMPHOCYTES % (AUTO) 20.7 % (13-45); MEAN CORPUSCULAR HEMOGLOBIN 28.4 pg (27.0-33.4); MEAN CORPUSCULAR HGB CONC 35.2 g/dL (32.0-36.0); MEAN CORPUSCULAR VOLUME 81 fl (80-97); MONOCYTES % (AUTO) 9.8 % (3-13); PLATELET COUNT 149 10^3/uL (150-450); RED BLOOD COUNT 4.92 10^6/uL (4.35-5.55); TOTAL CELLS COUNTED % (AUTO) 100 %; WHITE BLOOD COUNT 10.2 10^3/uL (4.0-10.5)
[2018-12-27] MEDS: INSULIN LISPRO 100 UNIT/ML 3 ML VIAL SUBCUT SCH ×3 (06:24→17:13)
[2018-12-27] MEDS: HEPARIN SOD (PORCINE) 5,000 UNIT/ML 1 ML SYRINGE SUBCUT SCH ×3 (06:25→21:28)
[2018-12-27 06:41] LABS: ANION GAP 10 (5-19); BLOOD UREA NITROGEN 20 mg/dL (7-20); CALCIUM 8.8 mg/dL (8.4-10.2); CARBON DIOXIDE 23 mmol/L (22-30); CHLORIDE 109 mmol/L (98-107); GLUCOSE 171 mg/dL (75-110); POTASSIUM 3.9 mmol/L (3.6-5.0); SODIUM 142.3 mmol/L (137-145)
[2018-12-27] MEDS ORDERED: CEFTRIAXONE 1 GM/D5W RTU 50 ML IV SCH (10:00)
[2018-12-27] MEDS: CARVEDILOL 12.5 MG TABLET PO SCH ×2 (10:17→21:28)
[2018-12-27] MEDS: ASPIRIN 81 MG TABLET, ENT COATED PO SCH (10:17)
[2018-12-27] MEDS: CLOPIDOGREL BISULFATE 75 MG TABLET PO SCH (10:18)
[2018-12-27] MEDS: ISOSORBIDE MONONITRATE 30 MG TAB.ER.24H PO SCH (10:18)
[2018-12-27] MEDS: LISINOPRIL 5 MG TABLET PO SCH ×2 (10:18→21:27)
[2018-12-27] MEDS: GUAIFENESIN 600 MG TABLET.SA PO SCH ×2 (10:18→21:27)
[2018-12-27] MEDS: TICAGRELOR 90 MG TABLET PO SCH (11:02)
[2018-12-27] MEDS ORDERED: ONDANSETRON HCL INJ/PF 4 MG/2 ML SDV IV PRN (12:43)
[2018-12-27] MEDS: IBUPROFEN 800 MG TABLET PO PRN (13:31)
--- NOTE | 2018-12-27 17:06 | PDOC PROGRESS REPORT ---
Subjective Progress Note for:: 12/27/18 Subjective:: No adverse events overnight. No new complaints. He said his cough has been productive and he feels better. He is asking if he can take his LifeVest off so he can take a shower. Reason For Visit: PNEUMONIA, CARDIOMYOPATHY Physical Exam Vital Signs: Temp Pulse Resp BP Pulse Ox 98.1 F 70 14 119/65 96 12/27/18 12:00 12/27/18 14:11 12/27/18 14:11 12/27/18 12:00 12/27/18 14:11 Intake & Output 12/26/18 12/27/18 12/28/18 06:59 06:59 06:59 Intake Total 525 480 Balance 525 480 Weight 87.2 kg General appearance: PRESENT: no acute distress, cooperative, disheveled Respiratory exam: PRESENT: clear to auscultation peewee, symmetrical, unlabored. ABSENT: accessory muscle use, crackles, prolonged expiratory phas, rhonchi, tachypnea, wheezes Cardiovascular exam: PRESENT: RRR, +S1, +S2 Pulses: PRESENT: normal carotid pulses Vascular exam: PRESENT: normal capillary refill GI/Abdominal exam: PRESENT: normal bowel sounds, soft. ABSENT: distended, guarding, rebound, tenderness Extremities exam: ABSENT: clubbing, pedal edema Musculoskeletal exam: PRESENT: normal inspection. ABSENT: deformity Neurological exam: PRESENT: alert, awake, oriented to person, oriented to place, oriented to time, oriented to situation Psychiatric exam: PRESENT: appropriate affect, normal mood Skin exam: PRESENT: dry, warm Results Laboratory Results: 12/27/18 05:54 12/27/18 05:54 12/27/18 12/27/18 05:54 05:54 WBC 10.2 RBC 4.92 Hgb 14.0 Hct 39.7 MCV 81 MCH 28.4 MCHC 35.2 RDW 14.0 Plt Count 149 L Seg Neutrophils % 67.0 Lymphocytes % 20.7 Monocytes % 9.8 Eosinophils % 2.2 Basophils % 0.3 Absolute Neutrophils 6.8 Absolute Lymphocytes 2.1 Absolute Monocytes 1.0 Absolute Eosinophils 0.2 Absolute Basophils 0.0 Sodium 142.3 Potassium 3.9 Chloride 109 H Carbon Dioxide 23 Anion Gap 10 BUN 20 Creatinine 0.94 Est GFR ( Amer) > 60 Est GFR (Non-Af Amer) > 60 Glucose 171 H Calcium 8.8 Magnesium 1.7 12/26/18 13:45 NT-Pro-B Natriuret Pep 4100 H Impressions: Chest X-Ray 12/26/18 13:33 IMPRESSION: NO ACUTE RADIOGRAPHIC FINDING IN THE CHEST. Chest/Abdomen CTA 12/26/18 15:37 IMPRESSION: Right lower lobe airspace disease worrisome for pneumonia Limited contrast bolus. No gross large pulmonary emboli Abnormal lung parenchyma with prominent peripheral airspaces along the subpleural aspect of both lungs Assessment and Plan - Diagnosis (1) Right lower lobe pneumonia Qualifiers: Pneumonia type: due to Pneumococcus Qualified Code(s): J13 - Pneumonia due to Streptococcus pneumoniae Is this a current diagnosis for this admission?: Yes Plan: Improving well on current antibiotics. Cultures are negative. We will keep him on IV antibiotics again today, and if he is doing well tomorrow he will probably go home. (2) Cardiomyopathy of undetermined type Is this a current diagnosis for this admission?: Yes Plan: He is under hat cutter care, has a LifeVest, and will continue with medical optimization. (3) DM type 2 (diabetes mellitus, type 2) Qualifiers: Diabetes mellitus director long term care insulin use: without director long term care use Diabetes mellitus complication status: with hyperglycemia Qualified Code(s): E11.65 - Type 2 diabetes mellitus with hyperglycemia Is this a current diagnosis for this admission?: Yes Plan: Well-controlled on his current regimen (4) HTN (hypertension) Qualifiers: Hypertension type: essential hypertension Qualified Code(s): I10 - Essential (primary) hypertension Is this a current diagnosis for this admission?: Yes Plan: Continue home meds - Time Time Spent with patient: 15-24 minutes
[2018-12-27] MEDS: ATORVASTATIN CALCIUM 20 MG TABLET PO SCH (21:27)
[2018-12-27] MEDS: CEFTRIAXONE SODIUM 1,000 MG in DEXTROSE 5%-WATER 50 ML IV SCH (21:28)
[2018-12-27] MEDS: AZITHROMYCIN 500 MG in DEXTROSE 5%-WATER 250 ML IV SCH (23:01)
[2018-12-28] MEDS: INSULIN LISPRO 100 UNIT/ML 3 ML VIAL SUBCUT SCH ×4 (01:04→11:47)
[2018-12-28] MEDS: HEPARIN SOD (PORCINE) 5,000 UNIT/ML 1 ML SYRINGE SUBCUT SCH (05:28)
[2018-12-28] MEDS: IBUPROFEN 800 MG TABLET PO PRN (08:42)
[2018-12-28] MEDS: TICAGRELOR 90 MG TABLET PO SCH (10:10)
[2018-12-28] MEDS: LISINOPRIL 5 MG TABLET PO SCH (10:11)
[2018-12-28] MEDS: ASPIRIN 81 MG TABLET, ENT COATED PO SCH (10:11)
[2018-12-28] MEDS: ISOSORBIDE MONONITRATE 30 MG TAB.ER.24H PO SCH (10:11)
[2018-12-28] MEDS: CLOPIDOGREL BISULFATE 75 MG TABLET PO SCH (10:11)
[2018-12-28] MEDS: GUAIFENESIN 600 MG TABLET.SA PO SCH (10:11)
[2018-12-28] MEDS: CARVEDILOL 12.5 MG TABLET PO SCH (10:11)
[2018-12-28 10:50] VITALS: BP 123/70
--- NOTE | 2018-12-28 16:45 | PDOC DISCHARGE SUMMARY ---
General - Admit/Disc Date/PCP Admission Date/Primary Care Provider: 12/26/18 19:14 STEFFANIE BOTELLO MD Discharge Date: 12/28/18 - Discharge Diagnosis (1) Right lower lobe pneumonia Is this a current diagnosis for this admission?: Yes Summary: Responded very well to antibiotics. Will finish up a course of Levaquin at home. (2) Cardiomyopathy of undetermined type Is this a current diagnosis for this admission?: Yes Summary: Has a LifeVest and is following up with Dr. Botello as an outpatient. (3) DM type 2 (diabetes mellitus, type 2) Is this a current diagnosis for this admission?: Yes Summary: We will continue metformin (4) HTN (hypertension) Is this a current diagnosis for this admission?: Yes Summary: Well-controlled on his home medication - Additional Information Resuscitation Status: Full Code Discharge Diet: Cardiac, Diabetic Discharge Activity: Activity As Tolerated Prescriptions: Levofloxacin [Levaquin 750 mg Tablet] 750 mg PO DAILY #5 tablet Home Medications: Aspirin [Adult Low Dose Aspirin EC] 81 mg PO DAILY 12/26/18 Atorvastatin Calcium [Lipitor 20 mg Tablet] 20 mg PO QHS 12/26/18 Carvedilol [Coreg 12.5 mg Tablet] 12.5 mg PO Q12 12/26/18 Clopidogrel Bisulfate [Plavix 75 mg Tablet] 75 mg PO DAILY 12/26/18 Isosorbide Mononitrate [Imdur 30 mg Tablet.er] 30 mg PO DAILY 12/26/18 Lisinopril [Prinivil 5 mg Tablet] 5 mg PO Q12 12/26/18 Metformin HCl [Glucophage 500 mg Tablet] 500 mg PO BID 12/26/18 Nitroglycerin [Nitrostat 0.4 mg (1/150 Gr) Tabs 25/Bottle] 1 tab SL Q5MP PRN 12/26/18 Ticagrelor [Brilinta 90 mg Tablet] 90 mg PO DAILY 12/26/18 Levofloxacin [Levaquin 750 mg Tablet] 750 mg PO DAILY #5 tablet 12/28/18 History of Present Illness History of Present Illness: WHITNEY HENRY is a 48 year old male who was just admitted to this hospital in early November. He has a history of severe cardiomyopathy requiring a life vest, congestive heart failure, hyperlipidemia, diabetes mellitus type 2, seizures and old CVA. He reports that 2 days ago he began to feel poorly. His breathing was slightly compromised. He began to have a productive cough with thick brown sputum. He felt chills on occasion but denied fever. He had no cardiac symptom s. On presentation to the emergency department he was found to have an elevated white blood cell count. He was hypoxic and received oxygen. Although a chest x-ray was benign CT scan showed an infiltrate. He was referred to the hospital service for admission. Hospital Course Hospital Course: He improved rather quickly on antibiotics. He had a cough that was productive of copious amounts of sputum. He was feeling a lot better. He will finish up a course of Levaquin at home. His comorbid conditions were managed with his home medications were not acutely exacerbated during his hospitalization. His labs and examination were reassuring and he was discharged in good condition. Physical Exam Vital Signs: Temp Pulse Resp BP Pulse Ox 97.9 F 77 16 123/70 99 12/28/18 07:22 12/28/18 07:22 12/28/18 07:22 12/28/18 07:22 12/28/18 07:22 Intake & Output 12/27/18 12/28/18 12/29/18 06:59 06:59 06:59 Intake Total 525 2090 Balance 525 2090 Weight 87.2 kg 87 kg General appearance: PRESENT: no acute distress, cooperative, disheveled Respiratory exam: PRESENT: clear to auscultation peewee, symmetrical, unlabored. ABSENT: accessory muscle use, crackles, prolonged expiratory phas, rhonchi, tachypnea, wheezes Cardiovascular exam: PRESENT: RRR, +S1, +S2 Pulses: PRESENT: normal carotid pulses Vascular exam: PRESENT: normal capillary refill GI/Abdominal exam: PRESENT: normal bowel sounds, soft. ABSENT: distended, guarding, rebound, tenderness Extremities exam: ABSENT: clubbing, pedal edema Musculoskeletal exam: PRESENT: normal inspection. ABSENT: deformity Neurological exam: PRESENT: alert, awake, oriented to person, oriented to place, oriented to time, oriented to situation Psychiatric exam: PRESENT: appropriate affect, normal mood Skin exam: PRESENT: dry, warm Results Laboratory Results: 12/27/18 05:54 12/27/18 05:54 12/26/18 13:45 NT-Pro-B Natriuret Pep 4100 H Impressions: Chest X-Ray 12/26/18 13:33 IMPRESSION: NO ACUTE RADIOGRAPHIC FINDING IN THE CHEST. Chest/Abdomen CTA 12/26/18 15:37 IMPRESSION: Right lower lobe airspace disease worrisome for pneumonia Limited contrast bolus. No gross large pulmonary emboli Abnormal lung parenchyma with prominent peripheral airspaces along the subpleural aspect of both lungs Qualifiers - * PATIENT BEING DISCHARGED WITH ANY OF THE FOLLOWING DIAGNOSIS: No Acute Heart Failure - Is this a Heart Failure Patient?: No Plan Time Spent: Greater than 30 Minutes
== END 2018-12-28 12:50 | disposition home or self-care (01) | DRG 194 ==
LOC: ER 12:58 → INTOOBSV 19:14 → OBSVTOIN 19:14 → EH 19:14 → 4S 20:48
PROVIDERS: ADMIT Hospitalist; ATTEND Hospitalist
DX: J18.1 Lobar pneumonia, unspecified organism (principal); I42.9 Cardiomyopathy, unspecified; I50.22 Chronic systolic (congestive) heart failure; I11.0 Hypertensive heart disease with heart failure; E11.65 Type 2 diabetes mellitus with hyperglycemia; E78.5 Hyperlipidemia, unspecified; Z86.73 Personal history of transient ischemic attack (TIA), and cerebral infarction without residual deficits
CPT/HCPCS: 36415; 71045; 71275; 80048; 80053; 81001; 82962; 83735; 83880; 85025; 87070; 87205; 93005; 93010; 99285; G0378; J0456; J0696; J1644; J1815; J3490; J7060

== ENCOUNTER → 2019-01-15 | Outpatient (CLI) | payer MEDICAID ==
[~2019-01-15] MED LIST: REGADENOSON INJ 0.4 MG/5 ML DISP.SYRIN IV ONE
--- NOTE | 2019-01-20 21:28 | DRAGON STRESS TEST REPORT ---
Intravenous Lexiscan Cardiolite stress test using single photon emmision computerized tomography. Date of procedure: 01/15/2019. Ordering Provider: Dr. Sondra Smith. Patient's status: Out Patient. Indication: History of coronary artery disease and cardiomyopathy, with significant right coronary artery lesion.. Coronary risk factors: Age, and hypertension, diabetes mellitus, and hyperlipidemia. Resting EKG: Sinus Rhythm. Inferolateral and apical lateral T wave inversion. Stress EKG: No changes of ischemia. The patient had no chest pain or discomfort, and there were no arrhythmias seen. Reason for termination: Protocol. Conclusions: Normal EKG and hemodynamic response to IV Lexiscan. Nuclear data: At rest the patient was given 13.98 millicuries of technetium 99m sestamibi injected intravenously. As per protocol rest non gated SPECT images were obtained. Subsequently the patient was given intravenous Lexiscan at a dose of 0.4 mg in 5 mL intravenously, followed by flush with normal saline. Subsequently the stress dose of 43.6 millicuries of technetium 99m sestamibi was injected intravenously. As per protocol stress gated images were obtained. Nuclear interpretation: Review of images showed that small area of perfusion defect involving the apical inferior wall in both rest and stress images. This small area had decreased motion contraction and thickening. This is consistent with a small prior AK. The rest of the segments of the myocardium had normal perfusion at rest, and normal perfusion post stress with IV Lexiscan. The rest of the segments of the myocardium had thickening by gated study. Both rest and stress images the left ventricle was dilated, with severe global hypokinesis consistent with cardiomyopathy. T. I D. ratio was normal at 1.19. There is no transient ischemic dilatation of the left ventricle. Computer read rest, and stress left ventricular ejection fraction were 34 %, and 24 %, respectively. Conclusion: 1. There is no scintigraphic evidence of Lexiscan induced myocardial ischemia. 2. There is scintigraphic evidence of myocardial infarction/scar involving a small area of the apical inferior wall. 3. 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 Recommendations: 1. Aggressive treatment of coronary artery disease, and cardiomyopathy. 2. Aggressive risk factor modification, and treating the underlying co- morbidities. 3. Check echocardiogram for LV ejection fraction correlation. [facility]
== END ==
LOC: RAD 07:49
PROVIDERS: ATTEND Specialist
DX: I25.10 Atherosclerotic heart disease of native coronary artery without angina pectoris (principal)
CPT/HCPCS: 93017; 78452; A9500; J2785; Q9969

== ENCOUNTER 2019-02-05 07:13 | Emergency (ER) | payer MEDICAID ==
--- NOTE | 2019-02-05 10:24 | ER Document Report ---
Entered by URBANO OLSEN SCRIBE 02/05/19 0738 Acting as scribe for:KRISTINE ZAMORA MD ED General - General Stated Complaint: POSSIBLE ALLERGIC REACTION Time Seen by Provider: 02/05/19 07:27 Mode of Arrival: Medic Information source: Patient Notes: 48 year old female that presents to the emergency department today with complaints of an allergic reaction which the patient noticed at 0600 this morning when waking up to go to the restroom. Patient states when walking to the bathroom he noticed he was extremely itchy across most of his body. Patient states he asked his girlfriend to get him some benadryl but instead she called EMS. EMS reported a blood pressure of 87/60 on arrival with hives diffusely spread across the patient's back. Patient states the bendaryl given by EMS has stopped the itching. Patient denies any new foods or possible triggers that he is aware of. Patient denies any tongue swelling, throat swelling, or shortness of breath. TRAVEL OUTSIDE OF THE [place] IN LAST 30 DAYS: No - Related Data Allergies/Adverse Reactions: lamotrigine [From Lamictal] Allergy (Verified 12/26/18 12:59) levetiracetam [From Keppra] Allergy (Verified 12/26/18 12:59) phenytoin [From Dilantin] Allergy (Verified 12/26/18 12:59) tramadol Allergy (Verified 12/26/18 12:59) Past Medical History - General Information source: Patient - Social History Smoking Status: Never Smoker Cigarette use (# per day): No Frequency of alcohol use: None Drug Abuse: None Lives with: Family Family History: Arthritis, CAD, COPD, CVA, DM, Malignancy - Past Medical History Cardiac Medical History: Reports: Hx Congestive Heart Failure, Hx Hypercholesterolemia, Hx Hypertension Neurological Medical History: Reports: Hx Cerebrovascular Accident, Hx Seizures Endocrine Medical History: Reports: Hx Diabetes Mellitus Type 2 Musculoskeletal Medical History: Reports Hx Arthritis - Gout, Reports Hx Gout Psychiatric Medical History: Reports: Hx Depression Past Surgical History: Reports: Hx Cardiac Catheterization - Immunizations Hx Diphtheria, Pertussis, Tetanus Vaccination: No Review of Systems - Review of Systems Constitutional: No symptoms reported EENT: denies: Throat swelling Cardiovascular: No symptoms reported Respiratory: denies: Short of breath Gastrointestinal: No symptoms reported Genitourinary: No symptoms reported Male Genitourinary: No symptoms reported Musculoskeletal: No symptoms reported Skin: See HPI, Rash Hematologic/Lymphatic: No symptoms reported Neurological/Psychological: No symptoms reported -: Yes All other systems reviewed and negative Physical Exam - Vital signs Vitals: Resp BP Pulse Ox 17 147/106 H 96 02/05/19 07:31 02/05/19 07:31 02/05/19 07:31 - Notes Notes: Physical Exam: General: Alert, appears well. Wearing life vest. HEENT: Normocephalic. Atraumatic. PERRL. Extraocular movements intact. Oropharynx clear. Inferior eyelids are significantly swollen. Tongue mildly dry and coated looking without swelling. No uvula edema. No posterior oropharynx swelling. Airway is patent. Neck: Supple. Non-tender. Respiratory: No respiratory distress. Clear and equal breath sounds bilaterally. Cardiovascular: Regular rate and rhythm. Abdominal: Normal Inspection. Non-tender. No distension. Normal Bowel Sounds. Back: Non-tender. No deformity or step off. Extremities: Moves all four extremities. Upper extremities: Normal inspection. Normal ROM. Lower extremities: Normal inspection. No edema. Normal ROM. Neurological: Normal cognition. AAOx4. Normal speech. Psychological: Normal affect. Normal Mood. Skin: Warm. Dry. Normal color. Hives that EMS reported are no longer present. Course - Re-evaluation Re-evalutation: 02/05/19 10:24 The patient states he has no itching, and other than feeling a little drowsy from the Benadryl feels well. There is still some lower eyelid edema, but there are no hives seen anywhere. He will be discharged home to take Pepcid 20mg every 6 hours, and then to take Benadryl 25 to 50 mg every 4 hours for itching or hives if needed. - Vital Signs Vital signs: Temp Pulse Resp BP Pulse Ox 97.7 F 81 24 H 150/101 H 95 02/05/19 07:43 02/05/19 07:43 02/05/19 07:46 02/05/19 07:46 02/05/19 07:46 Discharge - Discharge Clinical Impression: Hives Acute allergic reaction Qualifiers: Encounter type: initial encounter Qualified Code(s): T78.40XA - Allergy, unsp ecified, initial encounter Hypotension Qualifiers: Hypotension type: unspecified hypotension type Qualified Code(s): I95.9 - Hypotension, unspecified Condition: Stable Disposition: HOME, SELF-CARE Additional Instructions: Acute Allergic Reaction Your symptoms are due to an allergic reaction. Allergy can cause hives, swelling of the hands, feet, and face, hoarseness, and difficulty swallowing or breathing. It may be due to exposure to medication, animal dander, foods, infection, or insect bites. Medication is a common cause, even when prior use of this same medication caused no problems. Acute treatment may include adrenalin and antihistamines. Usually, the specific allergic agent can't be identified unless repeated episodes occur. Home treatment includes the following: (1) Stop any suspicious medications. This will be discussed with you. (2) Oral antihistamines for the next four to five days. Example, diphenhydramine (Benadryl) every four hours. (3) You may also use cimetidine (Tagamet), ranitidine (Zantac), or famotidine (Pepcid) every four hours if diphenhydramine is not controlling itching and hives. (4) Avoid aspirin until the hives completely disappear. (5) Avoid hot bahs or showers until the hives are completely gone. Call the doctor if faintness, difficulty swallowing, tightness in the chest, or wheezing occurs. Take Pepcid 20 mg every 6 hours for the next 2 days. Take Benadryl every 4 hours for itching if needed. Follow-up with your doctor this week for recheck. RETURN TO THE EMERGENCY ROOM IF ANY NEW OR WORSENING SYMPTOMS. Scribe Attestation: 02/05/19 08:06 I personally performed the services described in the documentation, reviewed and edited the documentation which was dictated to the scribe in my presence, and it accurately records my words and actions. I personally performed the services described in the documentation, reviewed and edited the documentation which was dictated to the scribe in my presence, and it accurately records my words and actions.
[2019-02-05 10:53] VITALS: BP 157/103
== END 2019-02-05 10:56 | disposition home or self-care (01) ==
LOC: ER 07:13
DX: T78.40XA Allergy, unspecified, initial encounter (principal); X58.XXXA Exposure to other specified factors, initial encounter; L50.9 Urticaria, unspecified; H02.845 Edema of left lower eyelid; H02.842 Edema of right lower eyelid; I95.9 Hypotension, unspecified; Z88.8 Allergy status to other drugs, medicaments and biological substances; Z88.5 Allergy status to narcotic agent; I10 Essential (primary) hypertension; E11.9 Type 2 diabetes mellitus without complications; Z95.811 Presence of heart assist device
CPT/HCPCS: 99283

== ENCOUNTER 2019-03-14 11:39 | Emergency (ER) | payer MEDICAID ==
[2019-03-14] MEDS ORDERED: DEXAMETHASONE 4 MG TABLET PO ONE (12:59)
[2019-03-14] MEDS ORDERED: LIDOCAINE 2% VISCOUS SOLN 20 ML UDCUP PO ONE (12:59)
[2019-03-14] MEDS ORDERED: PENICILLIN G BENZATHINE 1.2 MILLION UNIT/2 ML DISP.SYRIN IM ONE (12:59)
--- NOTE | 2019-03-14 13:02 | ER Document Report ---
HPI - HPI Patient complains to provider of: sore throat Time Seen by Provider: 03/14/19 12:52 Onset: Yesterday Onset/Duration: Gradual Quality of pain: Achy Pain Level: 3 Context: pt presents complaining of sore throat that started yesterday. Patient complains of body aches as well. Associated Symptoms: Body/muscle aches, Sore throat. denies: Earache, Fever Exacerbated by: Denies Relieved by: Denies Similar symptoms previously: Yes Recently seen / treated by doctor: No - ROS ROS below otherwise negative: Yes Systems Reviewed and Negative: Yes All other systems reviewed and negative - CONSTITUTIONAL Constitutional: DENIES: Fever - EENT EENT: REPORTS: Sore Throat - GASTROINTESTINAL Gastrointestinal: DENIES: Nausea, Patient vomiting - REPRODUCTIVE Reproductive: DENIES: : - DERM Skin Color: Normal Skin Problems: None Past Medical History - General Information source: Patient - Social History Smoking Status: Never Smoker Frequency of alcohol use: None Drug Abuse: None 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 Lives with: Family Family History: Arthritis, CAD, COPD, CVA, DM, Malignancy - Past Medical History Cardiac Medical History: Reports: Hx Congestive Heart Failure, Hx Heart Attack, Hx Hypercholesterolemia, Hx Hypertension Neurological Medical History: Reports: Hx Cerebrovascular Accident, Hx Seizures Endocrine Medical History: Reports: Hx Diabetes Mellitus Type 2 Renal/ Medical History: Denies: Hx Peritoneal Dialysis Musculoskeletal Medical History: Reports Hx Arthritis - Gout, Reports Hx Gout Psychiatric Medical History: Reports: Hx Depression Past Surgical History: Reports: Hx Cardiac Catheterization - Immunizations Hx Diphtheria, Pertussis, Tetanus Vaccination: No Vertical Provider Document - CONSTITUTIONAL Agree With Documented VS: Yes Exam Limitations: No Limitations General Appearance: WD/WN, No Apparent Distress - INFECTION CONTROL TRAVEL OUTSIDE OF THE [place] IN LAST 30 DAYS: No - HEENT HEENT: Atraumatic, Normocephalic, Pharyngeal Tenderness, Pharyngeal Erythema. negative: Pharyngeal Exudate - NECK Neck: Lymphadenopathy-Left, Lymphadenopathy-Right - RESPIRATORY Respiratory: Breath Sounds Normal, No Respiratory Distress - BACK Back: Normal Inspection - MUSCULOSKELETAL/EXTREMETIES Musculoskeletal/Extremeties: MAEW, FROM - NEURO Level of Consciousness: Awake, Alert, Appropriate Motor/Sensory: No Motor Deficit - DERM Integumentary: Warm, Dry, No Rash Course - Re-evaluation Re-evalutation: 03/14/19 13:01 Patient with positive strep test. No concern for CU[place] RUNNER. Patient able to manage oral secretions. Good return precautions discussed. - Vital Signs Vital signs: Temp Pulse Resp BP Pulse Ox 98.0 F 101 H 18 151/104 H 96 03/14/19 11:57 03/14/19 11:57 03/14/19 11:57 03/14/19 11:57 03/14/19 11:57 - Laboratory Laboratory results interpreted by me: 03/14/19 13:01 Labs- Entire Visit 03/14/19 12:36 Group A Strep Rapid POSITIVE Discharge - Discharge Clinical Impression: Strep throat Condition: Stable Disposition: HOME, SELF-CARE Instructions: Acetaminophen, Antibiotic Shot ([facility]), Steroid Medication, Strep Throat ([facility]) Additional Instructions: Return immediately for any new or worsening symptoms Followup with your primary care provider, call tomorrow to make a followup appointment Increase oral fluids and stay well-hydrated Forms: Return to Work
[2019-03-14 13:40] VITALS: BP 148/90
== END 2019-03-14 13:40 | disposition home or self-care (01) ==
LOC: ER 11:39
DX: J02.0 Streptococcal pharyngitis (principal); M79.10 Myalgia, unspecified site; I50.9 Heart failure, unspecified; I25.2 Old myocardial infarction; E78.00 Pure hypercholesterolemia, unspecified; I11.0 Hypertensive heart disease with heart failure; Z86.73 Personal history of transient ischemic attack (TIA), and cerebral infarction without residual deficits; E11.9 Type 2 diabetes mellitus without complications
CPT/HCPCS: 99283; 96372; 87880; J3490 ×2; J0561

== ENCOUNTER 2019-11-27 20:38 | Emergency (ER) | payer SELFPAY ==
[2019-11-27 20:46] VITALS: BP 151/89
[2019-11-27] MEDS ORDERED: DIPH/PERTUSS(ACELL)/TETANUS VAC/PF 0.5 ML SYR (>=10YO) IM ONE (20:52)
[2019-11-27] MEDS ORDERED: CEPHALEXIN 500 MG CAPSULE PO ONE (20:53)
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
== END 2019-11-27 21:21 | disposition home or self-care (01) ==
LOC: ER 20:38
DX: T25.222A Burn of second degree of left foot, initial encounter (principal); X12.XXXA Contact with other hot fluids, initial encounter; F17.200 Nicotine dependence, unspecified, uncomplicated; E11.9 Type 2 diabetes mellitus without complications; I10 Essential (primary) hypertension
CPT/HCPCS: 90471; 90715; 99283

== ENCOUNTER → 2020-03-02 | Outpatient (CLI) | payer OTHER ==
--- NOTE | 2020-03-03 17:17 | XCELERA REPORT ---
[address] [address] Transthoracic Echocardiogram Report Name: WIHTNEY HENRY JR, JR Age: 49 yrs Gender: Male : 1970 Patient Status: Outpatient Patient Location: RAD Study Date: 03/02/2020 10:21 AM Height: 68 in Weight: 178 lb BSA: 1.9 m2 Procedure: A two-dimensional transthoracic echocardiogram with color flow and Doppler was performed. Study Quality: Fair. Reason For Study: CHF History: CHF. Ordering Physician: JARON CABALLERO Performed By: Robi Wilson Interpretation Summary A two-dimensional transthoracic echocardiogram with color flow and Doppler was performed. The left ventricle is mildly dilated. LV EF is 45% Left ventricular systolic function is moderately reduced. LV diastolic function could not be adequately assessed. There is moderate global hypokinesis of the left ventricle. There is no thrombus. No ASD,VSD,or PFO seen. The right ventricle is normal in size and function. There is a pacemaker lead in the right ventricle. The right atrium is normal. The left atrial size is normal. There is no evidence of mitral valve prolapse. There is no vegetation seen on the mitral valve. There is no mitral valve stenosis. There is a trace amount of mitral regurgitation There is no aortic valvular vegetation. There is no aortic valve stenosis There is no LVOT obstruction. No aortic regurgitation is present. There is no tricuspid stenosis. There is a trace amount of tricuspid regurgitation Tricuspid regurgitation jet envelope not well defined to measure RV systolic pressure accurately. The aortic root is normal size. There is no pericardial effusion. MMode/2D Measurements & Calculations RVDd: 2.4 cm LVIDd: 5.5 cm FS: 21.3 % Ao root diam: 3.2 cm IVSd: 1.1 cm LVIDs: 4.3 cm EDV(Teich): 146.8 ml Ao root area: 8.0 cm2 LVPWd: 1.3 cm ESV(Teich): 84.0 ml LA dimension: 4.0 cm EF(Teich): 42.7 % Doppler Measurements & Calculations MV E max lavonne: MV P1/2t max lavonne: Ao V2 max: LV V1 max P.6 cm/sec 120.7 cm/sec 112.8 cm/sec 2.4 mmHg MV P1/2t: 31.6 msec Ao max P.1 mmHg LV V1 max: MVA(P1/2t): 7.0 cm2 77.5 cm/sec MV dec slope: 1119 cm/sec2 MV dec time: 0.11 sec PA V2 max: TR max lavonne: MV P1/2t-pr_phl: 102.7 cm/sec 228.0 cm/sec 31.6 msec PA max P.2 mmHgTR max P.8 mmHg Left Ventricle There is normal left ventricular wall thickness. The left ventricle is mildly dilated. LV EF is 45%. Left ventricular systolic function is moderately reduced. LV diastolic function could not be adequately assessed. There is moderate global hypokinesis of the left ventricle. There is no thrombus. No ASD,VSD,or PFO seen. Right Ventricle The right ventricle is normal in size and function. There is a pacemaker lead in the right ventricle. Atria The right atrium is normal. The left atrial size is normal. Mitral Valve There is no evidence of mitral valve prolapse. There is no vegetation seen on the mitral valve. There is no mitral valve stenosis. There is a trace amount of mitral regurgitation. Aortic Valve There is no aortic valvular vegetation. There is no aortic valve stenosis. There is no LVOT obstruction. No aortic regurgitation is present. Tricuspid Valve There is no tricuspid stenosis. There is a trace amount of tricuspid regurgitation. Tricuspid regurgitation jet envelope not well defined to measure RV systolic pressure accurately. Pulmonic Valve There is no pulmonic valvular stenosis. There is a trace amount of pulmonic regurgitation. Great Vessels The aortic root is normal size. The inferior vena cava appeared normal and decreased > 50% with respiration (RAP 5-10 mmHg). Effusions There is no pericardial effusion. : FEDERICO, NO Sondra Smith
== END ==
LOC: RAD 09:30
DX: I11.0 Hypertensive heart disease with heart failure (principal); I50.9 Heart failure, unspecified; E11.9 Type 2 diabetes mellitus without complications; Z86.73 Personal history of transient ischemic attack (TIA), and cerebral infarction without residual deficits; R56.9 Unspecified convulsions
CPT/HCPCS: 93306